=== PATIENT | female | born 1950 | race Caucasian/White ===

== ENCOUNTER → 2017-07-07 | Outpatient (CLI) | payer MEDICARE ==
--- NOTE | 2017-07-09 11:37 | MM ---
Reason for exam: screening (asymptomatic). Last mammogram was performed 1 year and 7 months ago. Physical Findings: A clinical breast exam by your physician is recommended on an annual basis and results should be correlated with mammographic findings. MG 3D Screening Mammo W/Cad Bilateral CC and MLO view(s) were taken. Prior study comparison: December 20, 2015, bilateral MG screening mammo w CAD. December 11, 2009, bilateral digital screening mammogram. The breast tissue is heterogeneously dense. This may lower the sensitivity of mammography. Finding: There are typically benign round calcifications in both breasts. Asymmetric breast tissue in the right medial aspect. There is no discrete abnormality. ASSESSMENT: Benign, BI-RAD 2 RECOMMENDATION: Routine screening mammogram of both breasts in 1 year.
== END | disposition home or self-care (01) ==
LOC: RADMAMWWP 09:21
PROVIDERS: ATTEND Family Medicine
DX: Z12.31 Encounter for screening mammogram for malignant neoplasm of breast (principal)
CPT/HCPCS: 77063; G0202

== ENCOUNTER → 2017-11-18 | Outpatient (CLI) | payer MEDICARE ==
--- NOTE | 2017-11-18 14:37 | BD ---
EXAMINATION TYPE: MG DEXA axial skeleton. DATE OF EXAM: 11/18/2017 COMPARISON: 09.04.2015 CLINICAL HISTORY: 67 YR OLD FEMALE....ICD-10 CODE: M19.90 OSTEOARTHRITIS Height: 61 Weight: 145 FRAX RISK QUESTIONS: Alcohol (3 or more units per day): NO Family History (Parent hip fracture): YES Glucocorticoids (More than 3mos): NO (Ex: prednisone, prednisolone, methylprednisolone, dexamethasone, and hydrocortisone). History of Fracture in Adulthood: YES Secondary Osteoporosis: NO 1. Type 1 Diabetes: NO 2. Hyperthyroidism: NO 3. Menopause before 45: YES 4. Malnutrition: NO 5. Chronic liver disease: NO Rheumatoid Arthritis: NO Current Tobacco Use: NO RISK FACTORS HISTORY OF: PELVIC BONE, >AGE 50 Family History of Osteoporosis: YES, HER MOTHER, WITH BROKEN HIP Active: YES Diet low in dairy products/other sources of calcium: YES, LACTOSE INTOLERANT Postmenopausal woman: TOTAL HYST AT AGE 28 Lost more than 2 inches in height since high school: NO Hyperparathyroidism: NO Adrenal Insufficiency: NO MEDICATIONS: Additional Medications: BP MEDS, ORAL DIABETIC MEDS, Additional History: DIABETIC, EXAM MEASUREMENTS: Bone mineral densitometry was performed using the [employer] System. Bone mineral density as measured about the Lumbar spine is: ----- L1-L4(G/cm2): 1.252 T Score Values are as follows: ----- L1: 0.3 ----- L2: 0.8 ----- L3: 0.7 ----- L4: 0.5 ----- L1-L4: 0.6 Bone mineral density has: Decreased -0.7% since study of: 09.04.2015 Bone mineral density about the R hip (g/cm2): 0.880 Bone mineral density about the L hip (g/cm2): 0.864 T Score values are as follows: -----R Neck: -1.2 -----L Neck: -1.6 -----R Total: -1.0 -----L Total: -1.1 Bone mineral density has: Decreased -1.2% since study of: 09.04.2015 FRAX%'S: THERE IS A 25.7% CHANCE OF A MAJOR OSTEOPOROTIC FX AND A -1.2% FOR HIP FX.....PROBABILIT Y OF FX IN 10 YRS TIME IMPRESSION: Osteopenia (T Score between -2.5 and -1 as noted by T score values There is slightly increased risk of fracture and the patient may be considered for treatment. Re-Screen 2-5 years. NOTE: T-SCORE=SD OF THE YOUNG ADULT MEAN.
== END | disposition home or self-care (01) ==
LOC: RADBDWWP 13:09
PROVIDERS: ATTEND Family Medicine
DX: M85.80 Other specified disorders of bone density and structure, unspecified site (principal); M19.90 Unspecified osteoarthritis, unspecified site
CPT/HCPCS: 77080

== ENCOUNTER → 2019-04-18 | Outpatient (CLI) | payer MEDICARE ==
--- NOTE | 2019-04-18 11:52 | XR ---
EXAMINATION TYPE: XR femur RT DATE OF EXAM: 04/18/2019 CLINICAL HISTORY: Pain TECHNIQUE: Two views of the right femur are obtained. COMPARISON: None FINDINGS: There is no acute fracture or dislocation seen in the right femur. Narrowing the medial co mpartment the knee joint and mild concentric narrowing the joint noted. Hypertrophic change of the ac etabulum associated with femoral acetabular impingement. Calcifications in the pelvis may be vascular . IMPRESSION: 1. Arthropathy of the hip and knee joints. Correlate for femoral acetabular impingement.
--- NOTE | 2019-04-18 12:15 | XR ---
EXAMINATION TYPE: XR Hip Complete RT DATE OF EXAM: 04/18/2019 COMPARISON: NONE HISTORY: Pain TECHNIQUE: 2 views submitted FINDINGS: There is no evidence of erosive change or acute fracture. Concentric narrowing the hip joint with hyp ertrophic change involving the acetabulum. Calcifications in the pelvis are likely vascular. IMPRESSION: 1. No evidence of acute fracture or dislocation. 2. Arthropathy correlate for femoral acetabular impingement.
== END | disposition home or self-care (01) ==
LOC: RADXRMAIN 10:04
PROVIDERS: ATTEND Family Medicine
DX: S76.901A Unspecified injury of unspecified muscles, fascia and tendons at thigh level, right thigh, initial encounter (principal); M16.11 Unilateral primary osteoarthritis, right hip; M17.0 Bilateral primary osteoarthritis of knee
CPT/HCPCS: 73502

== ENCOUNTER → 2019-08-23 | Outpatient (CLI) | payer MEDICARE ==
--- NOTE | 2019-08-24 11:11 | MM ---
Reason for exam: screening (asymptomatic). Last mammogram was performed 2 years and 2 months ago. Physical Findings: A clinical breast exam by your physician is recommended on an annual basis and results should be correlated with mammographic findings. MG 3D Screening Mammo W/Cad Bilateral CC and MLO view(s) were taken. Prior study comparison: July 07, 2017, bilateral MG 3d screening mammo w/cad. December 20, 2015, bilateral MG screening mammo w CAD. The breast tissue is heterogeneously dense. This may lower the sensitivity of mammography. There is no discrete abnormality. No significant changes when compared with prior studies. ASSESSMENT: Negative, BI-RAD 1 RECOMMENDATION: Routine screening mammogram of both breasts in 1 year.
== END | disposition home or self-care (01) ==
LOC: RADMAMWWP 09:27
PROVIDERS: ATTEND Family Medicine
DX: Z12.31 Encounter for screening mammogram for malignant neoplasm of breast (principal)
CPT/HCPCS: 77063; 77067

== ENCOUNTER → 2021-07-24 | Outpatient (CLI) | payer MEDICARE ==
--- NOTE | 2021-07-25 14:02 | MM ---
Reason for exam: screening (asymptomatic). Last mammogram was performed 1 year and 11 months ago. History: Took hormonal contraceptives for 6 years. Physical Findings: A clinical breast exam by your physician is recommended on an annual basis and results should be correlated with mammographic findings. MG 3D Screening Mammo W/Cad Bilateral CC and MLO view(s) were taken. Prior study comparison: August 23, 2019, bilateral MG 3d screening mammo w/cad. July 07, 2017, bilateral MG 3d screening mammo w/cad. The breast tissue is heterogeneously dense. This may lower the sensitivity of mammography. There are benign appearing round calcifications bilaterally. There is chronic nodularity in the right breast. There is no discrete abnormality. ASSESSMENT: Benign, BI-RAD 2 RECOMMENDATION: Routine screening mammogram in 1 year.
== END | disposition home or self-care (01) ==
LOC: RADMAMWWP 16:30
PROVIDERS: ATTEND Family Medicine
DX: Z12.31 Encounter for screening mammogram for malignant neoplasm of breast (principal)
CPT/HCPCS: 77063; 77067

== ENCOUNTER → 2022-01-22 | Outpatient (CLI) | payer MEDICARE ==
--- NOTE | 2022-01-22 15:47 | XR ---
EXAMINATION TYPE: XR forearm RT DATE OF EXAM: 01/22/2022 COMPARISON: NONE HISTORY: Pain Two views of the forearm demonstrate that the osseous structures appear to be intact and the joint sp aces appear to be preserved. There is no acute fracture or dislocation. Tiny olecranon spur. IMPRESSION: 1. No acute fracture or dislocation
--- NOTE | 2022-01-22 15:49 | XR ---
EXAMINATION TYPE: XR humerus RT DATE OF EXAM: 01/22/2022 COMPARISON: NONE HISTORY: Pain TECHNIQUE: 2 views submitted. FINDINGS: The osseous structures are intact and the joint spaces are preserved. IMPRESSION: 1. No acute fracture or dislocation.
--- NOTE | 2022-01-22 15:51 | XR ---
EXAMINATION TYPE: XR hand limited RT DATE OF EXAM: 01/22/2022 COMPARISON: NONE HISTORY: Pain TECHNIQUE: Two views are submitted. FINDINGS: The osseous structures are intact. The joint spaces are preserved and there is no acute fracture or dislocation. Diffuse osteopenia with narrowing of the DIP joints. IMPRESSION: 1. No definite acute fracture or dislocation if symptoms persist, follow-up study in 7 to 10 days wo uld be suggested. Diffuse osteopenia and arthropathy.
--- NOTE | 2022-01-22 15:54 | XR ---
EXAMINATION TYPE: XR shoulder limited RT DATE OF EXAM: 01/22/2022 COMPARISON: NONE HISTORY: Pain TECHNIQUE: Two views are submitted. FINDINGS: The osseous structures are intact. There is no acute fracture or dislocation. There is a widening of the AC joint which may be chronic. IMPRESSION: 1. There may be slight widening of the AC joint potentially chronic. If concern for AC joint injury c orrelate with MRI.
== END | disposition home or self-care (01) ==
LOC: RADXRMAIN 14:46
PROVIDERS: ATTEND Family Medicine
DX: M85.841 Other specified disorders of bone density and structure, right hand (principal); M12.841 Other specific arthropathies, not elsewhere classified, right hand

== ENCOUNTER → 2022-06-04 | Outpatient (CLI) | payer MEDICARE ==
[2022-06-04 11:07] LABS: ALT 26 U/L (8-44); AST 35 U/L (13-35); African American GFR (CKD) 100.3 (60.0-200.0); Albumin 4.2 g/dL (3.8-4.9); Albumin/Globulin Ratio 1.27 (1.60-3.17); Alkaline Phosphatase 70 U/L (41-126); BUN/Creat Ratio 22.57 Ratio (12.00-20.00); Blood Urea Nitrogen 15.8 mg/dL (9.0-27.0); Calcium 9.5 mg/dL (8.7-10.3); Carbon Dioxide 23.9 mmol/L (20.0-27.5); Chloride 107 mmol/L (96-109); Chol/HDL Ratio 2.87 Ratio; Globulin 3.3 g/dL (1.6-3.3); Glucose 103 mg/dL (70-110); LDL Cholesterol,Calculated 48.3 mg/dL (0.0-131.0); Non-African American GFR(CKD) 86.6 (60.0-200.0); Potassium 3.5 mmol/L (3.5-5.5); Sodium 145 mmol/L (135-145); Total Protein 7.5 g/dL (6.2-8.2); VLDL Calculation 17.46 mg/dL (5.00-40.00)
[2022-06-04 11:11] LABS: Basophils # (A) 0.02 X 10*3/uL (0.00-0.10); Basophils % (A) 0.6 %; Eosinophils # (A) 0.06 X 10*3/uL (0.04-0.35); Eosinophils % (A) 1.9 %; HCT 37.1 % (37.2-46.3); HGB 10.9 g/dL (12.0-15.0); Immature Grans, Automated 0.3 %; Lymphocytes # (A) 1.16 X 10*3/uL (0.90-5.00); Lymphocytes % (A) 36.6 %; MCH 25.1 pg (27.0-32.0); MCHC 29.4 g/dL (32.0-37.0); MCV 85.3 fL (80.0-97.0); Mean Platelet Volume 10.5 fL (9.5-12.2); Monocytes # (A) 0.18 X 10*3/uL (0.20-1.00); Monocytes % (A) 5.7 %; NRBC Per 100 WBC 0 /100 WBCS (0.0-0.0); Neutrophils # (A) 1.74 X 10*3/uL (1.80-7.70); Neutrophils % (A) 54.9 %; Platelet Count 93 X 10*3/uL (140-440); RBC 4.35 X 10*6/uL (4.10-5.20); RBC Morphology NORMAL; RDW 17.6 % (11.5-14.5); WBC 3.17 X 10*3/uL (4.50-10.00)
== END | disposition home or self-care (01) ==
LOC: LABWHC1 07:55
PROVIDERS: ATTEND Family Medicine
DX: E11.29 Type 2 diabetes mellitus with other diabetic kidney complication (principal); E78.00 Pure hypercholesterolemia, unspecified
CPT/HCPCS: 36415; 80053; 80061; 85025

== ENCOUNTER 2022-07-18 10:50 | Emergency (ER) | payer MEDICARE ==
--- NOTE | 2022-07-18 11:27 | XR ---
EXAMINATION TYPE: XR chest 2V DATE OF EXAM: 07/18/2022 COMPARISON: 07/11/2015 HISTORY: 71-year-old female with chest pain TECHNIQUE: PA and lateral views FINDINGS: Heart normal size atherosclerotic arch calcifications. Mild interstitial prominence is unchanged. No consolidation or pleural effusion. Slightly low lung volumes. IMPRESSION: Chronic changes. No acute process seen.
[2022-07-18 11:58] LABS: Anisocytosis Slight; Basophils % (A) 1 %; Eosinophils # (A) 0.1 k/uL (0-0.7); Eosinophils % (A) 2 %; HCT 39.3 % (34.0-46.0); HGB 11.9 gm/dL (11.4-16.0); Hypochromasia Marked; Lymphocytes % (A) 29 %; MCH 26.3 pg (25.0-35.0); MCHC 30.3 g/dL (31.0-37.0); MCV 86.7 fL (80.0-100.0); Mean Platelet Volume 8.8; Monocytes # (A) 0.2 k/uL (0-1.0); Monocytes % (A) 5 %; Neutrophils # (A) 2.1 k/uL (1.3-7.7); Neutrophils % (A) 62 %; Platelet Count 102 k/uL (150-450); RBC 4.53 m/uL (3.80-5.40); RDW 17.6 % (11.5-15.5); WBC 3.3 k/uL (3.8-10.6)
[2022-07-18 12:00] LABS: Partial Thromboplastin Time 25.8 sec (22.0-30.0)
[2022-07-18 12:09] LABS: ALT 35 U/L (4-34); AST 52 U/L (14-36); African American GFR (CKD) >90 (>60 ml/min/1.73 sqM); Albumin 4.2 g/dL (3.5-5.0); Alkaline Phosphatase 75 U/L (38-126); Anion Gap 13 mmol/L; Blood Urea Nitrogen 17 mg/dL (7-17); Calcium 8.9 mg/dL (8.4-10.2); Carbon Dioxide 23 mmol/L (22-30); Chloride 105 mmol/L (98-107); Glucose 146 mg/dL (74-99); Magnesium 1.8 mg/dL (1.6-2.3); Non-African American GFR(CKD) >90 (>60 ml/min/1.73 sqM); Potassium 4.2 mmol/L (3.5-5.1); Sodium 141 mmol/L (137-145); Total Bilirubin 0.8 mg/dL (0.2-1.3); Total Protein 7.3 g/dL (6.3-8.2)
[2022-07-18] MEDS ORDERED: PANTOPRAZOLE 40 MG/10 ML VIAL IVP STA (13:05)
--- NOTE | 2022-07-18 13:05 | ED ---
General Adult HPI - General Chief complaint: Abdominal Pain Stated complaint: Epigastric "chest pain" Time Seen by Provider: 07/18/22 12:29 Source: patient, RN notes reviewed Mode of arrival: ambulatory Limitations: no limitations - History of Present Illness Initial comments: Patient is a 71-year-old female presenting to the emergency room with complaints of "chest pain" that is epigastric in nature that has not responded to nitroglycerin. She is unable to identify any aggravating or alleviating factors. She does note that she did vomit 2 days ago. She is also complaining of some neck and back pain as well. She denies any typical chest pain and states that the pain she is experiencing now is not similar to her previous chest pain when she had a cardiac catheterization completed. She denies any shortness of breath, abdominal pain, orthopnea, PND, diaphoresis, lower extremity edema fevers or chills. She reports that she was having some hematuria which was microscopic in nature and her primary care provider referred her to urology h owever she denies any dysuria or gross hematuria or flank pain. She has a past medical history significant for diabetes, hypertension, hyperlipidemia, diabetic neuropathy, and arthritis. - Related Data Home Medications Medication Instructions Recorded Confirmed Aspirin 81 mg PO DAILY 04/11/14 07/12/15 Cholecalciferol [Vitamin D3 (25 4,000 unit PO DAILY 04/11/14 07/12/15 Mcg = 1000 Iu)] Metoprolol Tartrate [Lopressor] 50 tab PO DAILY 04/11/14 07/12/15 Nitroglycerin Sl Tabs [Nitrostat] 0.4 mg SL Q5M PRN 04/11/14 07/12/15 Atorvastatin [Lipitor] 20 mg PO HS 01/25/15 07/12/15 Acarbose 100 mg PO BID 07/12/15 07/12/15 Cyclobenzaprine [Flexeril] 5 mg PO BID 07/12/15 07/12/15 Dapagliflozin/Metformin HCl 1 tab PO BID-W/MEALS 07/12/15 07/12/15 [Xigduo Xr 5 mg-1,000 mg Tablet] Gabapentin 400 mg PO TID 07/12/15 07/12/15 Lisinopril [Prinivil] 5 mg PO HS 07/12/15 07/12/15 Terbinafine [LamISIL] 250 mg PO DAILY 07/12/15 07/12/15 Previous Rx's Medication Instructions Recorded Diclofenac Sodium Gel [Voltaren 2 gm TOPICAL QID tube 07/14/15 Gel] Naproxen [Naprosyn] 250 mg PO BID #10 tab 07/14/15 Pantoprazole Sodium [Protonix] 40 mg PO DAILY 14 Days #14 tab 07/18/22 Allergies Allergy/AdvReac Type Severity Reaction Status Date / Time No Known Allergies Allergy Verified 07/18/22 10:55 Review of Systems ROS Statement: Those systems with pertinent positive or pertinent negative responses have been documented in the HPI. ROS Other: All systems not noted in ROS Statement are negative. Past Medical History Past Medical History: Asthma, Chest Pain / Angina, Diabetes Mellitus, Hypertension Additional Past Medical History / Comment(s): ASTHMA, HX OF HEPATITIS A @ 12 YRS OLD, DIARRHEA History of Any Multi-Drug Resistant Organisms: None Reported Past Surgical History: Heart Catheterization, Hysterectomy Additional Past Surgical History / Comment(s): RT CARPAL TUNNEL, CYSTS AND TRIGGER FINGER RT & LT HANDS Past Anesthesia/Blood Transfusion Reactions: No Reported Reaction, Motion Sickness Past Psychological History: No Psychological Hx Reported Smoking Status: Never smoker Past Alcohol Use History: None Reported Past Drug Use History: None Reported - Past Family History Mother History Unknown: Yes Family Medical History: Myocardial Infarction ([place]) Father History Unknown: Yes Additional Family Medical History / Comment(s): emphysema General Exam Limitations: no limitations General appearance: alert, in no apparent distress Head exam: Present: atraumatic, normocephalic, normal inspection Eye exam: Present: normal appearance, PERRL, EOMI. Absent: scleral icterus, conjunctival injection, periorbital swelling ENT exam: Present: normal exam, mucous membranes moist Neck exam: Present: normal inspection. Absent: tenderness, meningismus, lymphadenopathy Respiratory exam: Present: normal lung sounds bilaterally. Absent: respiratory distress, wheezes, rales, rhonchi, stridor Cardiovascular Exam: Present: regular rate, normal rhythm, normal heart sounds. Absent: systolic murmur, diastolic murmur, rubs, gallop, clicks GI/Abdominal exam: Present: soft, normal bowel sounds, other (rounded). Absent: distended, tenderness, guarding, rebound, rigid Rectal exam: Present: deferred Extremities exam: Present: normal inspection, full ROM, normal capillary refill, other (2+ bilateral pedal pulses). Absent: tenderness, pedal edema, joint swelling Back exam: Present: full ROM. Absent: tenderness, muscle spasm, paraspinal tenderness, vertebral tenderness Neurological exam: Present: alert, oriented X3, CN II-XII intact Psychiatric exam: Present: normal affect, normal mood Skin exam: Present: warm, dry, intact, normal color. Absent: rash Course Vital Signs 07/18/22 07/18/22 10:51 13:05 Temperature 98.1 F 98.2 F Pulse Rate 97 90 Respiratory 18 16 Rate Blood Pressure 125/62 147/75 O2 Sat by Pulse 95 98 Oximetry Medical Decision Making - Medical Decision Making 71-year-old female presenting to the emergency room with complaints of epigastric pain which she describes as chest pain that is not typical to her previous chest pain. She reports that symptoms began approximately 4 days ago and around the same time she did have an episode of vomiting. Due to past medical history from triage workup for ACS was ordered including troponin, magnesium, CMP, CBC, coags, chest x-ray and EKG. Given muscle aches and recent vomiting will check for Covid as well. Will give IV Protonix. No evidence of typical chest pain or other associated symptoms. EKG sinus rhythm with old infarcts noted no change compared to 2014. Chest x- ray no acute cardiopulmonary process. CMP revealed slightly elevated liver enzymes and elevated glucose consistent with home glucose readings, otherwise no significant abnormalities; troponin negative, magnesium normal. CBC reveals leukopenia near baseline. Covid negative. Will check KUB given no significant improvement from Protonix however pain mild. No other associated symptoms nausea or vomiting. KUB negative for acute findings; possible calcified gallstone. Findings reviewed with patient. Will discharge home on a PPI and recommend follow-up with her primary care provider. Return parameters to the emergency room reviewed at length. Case discussed with Dr. Winchester. - Lab Data Result diagrams: 07/18/22 11:08 07/18/22 11:08 Lab Results 07/18/22 07/18/22 07/18/22 Range/Units 11:08 11:08 11:08 WBC 3.3 L (3.8-10.6) k/uL RBC 4.53 (3.80-5.40) m/uL Hgb 11.9 (11.4-16.0) gm/dL Hct 39.3 (34.0-46.0) % MCV 86.7 (80.0-100.0) fL MCH 26.3 (25.0-35.0) pg MCHC 30.3 L (31.0-37.0) g/dL RDW 17.6 H (11.5-15.5) % Plt Count 102 L (150-450) k/uL MPV 8.8 Neutrophils % 62 % Lymphocytes % 29 % Monocytes % 5 % Eosinophils % 2 % Basophils % 1 % Neutrophils # 2.1 (1.3-7.7) k/uL Lymphocytes # 1.0 (1.0-4.8) k/uL Monocytes # 0.2 (0-1.0) k/uL Eosinophils # 0.1 (0-0.7) k/uL Basophils # 0.0 (0-0.2) k/uL Hypochromasia Marked Anisocytosis Slight PT 11.0 (9.0-12.0) sec INR 1.0 (<1.2) APTT 25.8 (22.0-30.0) sec Sodium 141 (137-145) mmol/L Potassium 4.2 (3.5-5.1) mmol/L Chloride 105 (98-107) mmol/L Carbon Dioxide 23 (22-30) mmol/L Anion Gap 13 mmol/L BUN 17 (7-17) mg/dL Creatinine 0.59 (0.52-1.04) mg/dL Est GFR (CKD-EPI)AfAm >90 (>60 ml/min/1.73 sqM) Est GFR (CKD-EPI)NonAf >90 (>60 ml/min/1.73 sqM) Glucose 146 H (74-99) mg/dL Calcium 8.9 (8.4-10.2) mg/dL Magnesium 1.8 (1.6-2.3) mg/dL Total Bilirubin 0.8 (0.2-1.3) mg/dL AST 52 H (14-36) U/L ALT 35 H (4-34) U/L Alkaline Phosphatase 75 (38-126) U/L Troponin I (0.000-0.034) ng/mL Total Protein 7.3 (6.3-8.2) g/dL Albumin 4.2 (3.5-5.0) g/dL Coronavirus (PCR) (Not Detectd) 07/18/22 07/18/22 Range/Units 11:08 13:07 WBC (3.8-10.6) k/uL RBC (3.80-5.40) m/uL Hgb (11.4-16.0) gm/dL Hct (34.0-46.0) % MCV (80.0-100.0) fL MCH (25.0-35.0) pg MCHC (31.0-37.0) g/dL RDW (11.5-15.5) % Plt Count (150-450) k/uL MPV Neutrophils % % Lymphocytes % % Monocytes % % Eosinophils % % Basophils % % Neutrophils # (1.3-7.7) k/uL Lymphocytes # (1.0-4.8) k/uL Monocytes # (0-1.0) k/uL Eosinophils # (0-0.7) k/uL Basophils # (0-0.2) k/uL Hypochromasia Anisocytosis PT (9.0-12.0) sec INR (<1.2) APTT (22.0-30.0) sec Sodium (137-145) mmol/L Potassium (3.5-5.1) mmol/L Chloride (98-107) mmol/L Carbon Dioxide (22-30) mmol/L Anion Gap mmol/L BUN (7-17) mg/dL Creatinine (0.52-1.04) mg/dL Est GFR (CKD-EPI)AfAm (>60 ml/min/1.73 sqM) Est GFR (CKD-EPI)NonAf (>60 ml/min/1.73 sqM) Glucose (74-99) mg/dL Calcium (8.4-10.2) mg/dL Magnesium (1.6-2.3) mg/dL Total Bilirubin (0.2-1.3) mg/dL AST (14-36) U/L ALT (4-34) U/L Alkaline Phosphatase (38-126) U/L Troponin I <0.012 (0.000-0.034) ng/mL Total Protein (6.3-8.2) g/dL Albumin (3.5-5.0) g/dL Coronavirus (PCR) Not Detected (Not Detectd) - EKG Data EKG Comments: Sinus rhythm, 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 No acute process seen. KUB impression nonacute abdomen. Possible calcified gallstone. Disposition Clinical Impression: Gastroesophageal reflux disease Disposition: HOME SELF-CARE Condition: Stable Instructions (If sedation given, give patient instructions): GERD (Gastroesophageal Reflux Disease) (ED) Additional Instructions: Please take Protonix daily for the next 2 weeks. Please follow-up with your primary care provider. Please continue your regular home medications as prescribed. Please return to the emergency room if any worsening of epigastric pain, typical chest pain, shortness of breath, nausea, vomiting or other concerns. . Prescriptions: Pantoprazole Sodium [Protonix] 40 mg PO DAILY 14 Days #14 tab Is patient prescribed a controlled substance at d/c from ED?: No Referrals: None,Stated [Primary Care Provider] - 1-2 days Time of Disposition: 14:41
[2022-07-18 13:10] VITALS: TEMP 98.2
--- NOTE | 2022-07-18 14:32 | XR ---
EXAMINATION TYPE: XR KUB DATE OF EXAM: 07/18/2022 COMPARISON: NONE HISTORY: Pain TECHNIQUE: Single view FINDINGS: There is no sign of intestinal obstruction or pneumoperitoneum. Fecal pattern is normal. No sign of a mass. No pathologic calcifications over the kidneys. There is rounded calcification over t he right upper quadrant. IMPRESSION: Nonacute abdomen. Possible calcified gallstone.
[2022-07-18 14:58] VITALS: BP 119/77; PULSE 85; RESP 18
== END 2022-07-18 14:58 | disposition home or self-care (01) ==
LOC: EC 10:50
DX: K21.9 Gastro-esophageal reflux disease without esophagitis (principal); J45.909 Unspecified asthma, uncomplicated; E11.9 Type 2 diabetes mellitus without complications; I10 Essential (primary) hypertension; Z20.822 Contact with and (suspected) exposure to COVID-19; Z79.84 Long term (current) use of oral hypoglycemic drugs; Z79.899 Other long term (current) drug therapy
CPT/HCPCS: 36415; 93005; 80053; 83735; 84484; 85025; 85610; 85730; 87635; 71046; 74018; 99284; 96374; C9113

== ENCOUNTER → 2022-08-25 | Outpatient (CLI) | payer MEDICARE ==
[2022-08-25 14:29] LABS: Basophils # (A) 0.02 X 10*3/uL (0.00-0.10); Basophils % (A) 0.7 %; Eosinophils # (A) 0.09 X 10*3/uL (0.04-0.35); Eosinophils % (A) 3.1 %; HCT 32.6 % (37.2-46.3); HGB 9.9 g/dL (12.0-15.0); Immature Grans, Automated 0.3 %; Lymphocytes # (A) 1.01 X 10*3/uL (0.90-5.00); Lymphocytes % (A) 34.7 %; MCH 25.5 pg (27.0-32.0); MCHC 30.4 g/dL (32.0-37.0); Mean Platelet Volume 11.5 fL (9.5-12.2); Monocytes % (A) 6.9 %; NRBC Per 100 WBC 0 /100 WBCS (0.0-0.0); Neutrophils # (A) 1.58 X 10*3/uL (1.80-7.70); Neutrophils % (A) 54.3 %; Platelet Count 112 X 10*3/uL (140-440); RBC 3.88 X 10*6/uL (4.10-5.20); RDW 17.3 % (11.5-14.5); WBC 2.91 X 10*3/uL (4.50-10.00)
[2022-08-25 18:40] LABS: % Iron Saturation 6.49 (12.00-45.00); ALT 30 U/L (8-44); AST 45 U/L (13-35); African American GFR (CKD) 103.8 (60.0-200.0); Albumin 3.7 g/dL (3.8-4.9); Albumin/Globulin Ratio 1.17 (1.60-3.17); Alkaline Phosphatase 77 U/L (41-126); BUN/Creat Ratio 18.83 Ratio (12.00-20.00); Blood Urea Nitrogen 11.9 mg/dL (9.0-27.0); Calcium 8.7 mg/dL (8.7-10.3); Carbon Dioxide 20.9 mmol/L (20.0-27.5); Chloride 105 mmol/L (96-109); Chol/HDL Ratio 4.17 Ratio; Globulin 3.2 g/dL (1.6-3.3); Glucose 122 mg/dL (70-110); Iron 26 ug/dL (50-170); Non-African American GFR(CKD) 89.5 (60.0-200.0); Potassium 3.7 mmol/L (3.5-5.5); Sodium 140 mmol/L (135-145); Total Iron Binding Capacity 396 ug/dL (228-460); Total Protein 6.9 g/dL (6.2-8.2); VLDL Calculation 17.98 mg/dL (5.00-40.00)
== END | disposition home or self-care (01) ==
LOC: LABWHC1 08:51
PROVIDERS: ATTEND Family Medicine
DX: Z00.01 Encounter for general adult medical examination with abnormal findings (principal); D64.9 Anemia, unspecified; M85.80 Other specified disorders of bone density and structure, unspecified site
CPT/HCPCS: 36415; 80053; 80061; 82306; 82728; 83540; 83550; 84439; 84443; 85025

== ENCOUNTER → 2022-10-01 | Outpatient (CLI) | payer MEDICARE ==
--- NOTE | 2022-10-02 18:19 | MM ---
Reason for Exam: Screening (asymptomatic). Last mammogram was performed 1 year(s) and 3 month(s) ago. Patient History: Menarche at age 17. First Full-Term at age 18. Left ovary removed at age 29. Right ovary removed at age 29. Hysterectomy at age 29. Postmenopausal. Patient used Hormonal Contraceptives for 6 years. Risk Values: Anne 5 year model risk: 1.2%. NCI Lifetime model risk: 3.0%. Prior Study Comparison: 12/20/2015 Bilateral Screening Mammogram, [facility]. 07/07/2017 Bilateral Screening Mammogram, [facility]. 08/23/2019 Bilateral Screening Mammogram, [facility]. 07/24/2021 Bilateral Screening Mammogram, [facility]. Tissue Density: There are scattered fibroglandular densities. Findings: Analyzed By CAD. Chronic nodularity on both sides. There is no suspicious group of microcalcifications or new suspicious mass in either breast. Overall Assessment: Benign, BI-RAD 2 Management: Screening Mammogram of both breasts in 1 year. 1. Patient should continue monthly self breast exams. 2. A clinical breast exam by your physician is recommended on an annual basis. 3. This exam should not preclude additional follow-up of suspicious palpable abnormalities. Electronically signed and approved by: Shima Rain M.D. Radiologist
== END | disposition home or self-care (01) ==
LOC: RADMAMWWP 13:28
PROVIDERS: ATTEND Family Medicine
DX: Z12.31 Encounter for screening mammogram for malignant neoplasm of breast (principal); Z78.0 Asymptomatic menopausal state; Z90.721 Acquired absence of ovaries, unilateral
CPT/HCPCS: 77063; 77067

== ENCOUNTER → 2022-10-01 | Outpatient (CLI) | payer MEDICARE ==
--- NOTE | 2022-10-01 17:23 | BD ---
EXAMINATION TYPE: Axial Bone Density DATE OF EXAM: 10/01/2022 CLINICAL HISTORY: 71 years year old Female. ICD-10 CODE: M85.80 oth bne disorder unsp Height: 60.5 Weight: 142.3 FRAX RISK QUESTIONS: Alcohol (3 or more units per day): NO Family History (Parent hip fracture): MOTHER Glucocorticoids (More than 3mos): NO History of Fracture in Adulthood: ANKLE Secondary Osteoporosis: 1. Type 1 Diabetes: NO 2. Hyperthyroidism: NO 3. Menopause before 45: YES AGE 29 4. Malnutrition: NO 5. Chronic liver disease: NO Rheumatoid Arthritis: NO Current Tobacco Use: NO RISK FACTORS HISTORY OF: Hip Fracture (Right/Left): NO Spine Fracture: NO History of Wrist Fracture: NO Surgery to Spine/Hip(right/left)/Wrist (right/left): NO Family History of Osteoporosis: NO Active: YES Diet low in dairy products/other sources of calcium: YES Postmenopausal woman: YES Take estrogen and/or progesterone medications: NO Lost more than 2 inches in height since high school: NO Frequent falls: YES Poor Health: NO Hyperparathyroidism: NO Adrenal Insufficiency: NO MEDICATIONS: Prednisone or other steroids: NO Thyroid Medications: NO Osteoporosis Medications: NO Additional Medications: JARDIANCE, GABAPENTIN, CHOLESTEROL MEDS, MULTI VIT., EXAM MEASUREMENTS: Bone mineral densitometry was performed using the [employer] System. Bone mineral density as measured about the Lumbar spine is: ----- L1-L4(G/cm2): 1.249 T Score Values are as follows: ----- L1: 0.4 ----- L2: 0.2 ----- L3: 0.8 ----- L4: 0.8 ----- L1-L4: 0.6 Bone mineral density has: DECREASED -0.5 % since study of: 11/18/2017 Bone mineral density about the R hip (g/cm2): 0.798 Bone mineral density about the L hip (g/cm2): 0.741 T Score values are as follows: -----R Neck: -1.7 -----L Neck: -2.1 -----R Total: -1.3 -----L Total: -1.3 Bone mineral density has: DECREASED -3.3 % since study of: 11/18/2017 FRAX%s: The graph provided illustrates a 32.5% chance for a major osteoporotic fx and a 14.8% chance for the hips probability for fx in 10 years time. IMPRESSION: Osteopenia (T Score between -2.5 and -1). There is slightly increased risk of fracture and the patient may be considered for treatment. Re-Screen 2-5 years. NOTE: T-SCORE=SD OF THE YOUNG ADULT MEAN.
== END | disposition home or self-care (01) ==
LOC: RADBDWWP 13:27
PROVIDERS: ATTEND Family Medicine
DX: M85.89 Other specified disorders of bone density and structure, multiple sites (principal); Z78.0 Asymptomatic menopausal state; Z79.52 Long term (current) use of systemic steroids
CPT/HCPCS: 77080

== ENCOUNTER → 2022-10-08 | Outpatient (CLI) | payer MEDICARE ==
--- NOTE | 2022-10-08 12:32 | US ---
EXAMINATION TYPE: US kidneys/renal and bladder DATE OF EXAM: 10/08/2022 COMPARISON: NONE CLINICAL HISTORY: 71-year-old female R31.1 BENIGN ESSENTIAL MICROSCOPIC HEMATURIA. TECHNIQUE: Multiple sonographic images of the bladder are obtained. FINDINGS: EXAM MEASUREMENTS: Right Kidney: 10.5 x 4.9 x 4.7 cm Left Kidney: 10.0 x 4.5 x 5.1 cm Right Kidney: wnl Left Kidney: wnl No sonographically appreciable mass or hydronephrosis on either side. No discrete shadowing calculus identified. Bladder: wnl Bilateral Jets seen: Yes IMPRESSION: Unremarkable sonographic examination of the kidneys and bladder. Further evaluation as clinically ind icated.
== END | disposition home or self-care (01) ==
LOC: RADUSWWP 07:13
PROVIDERS: ATTEND Family Medicine
DX: R31.1 Benign essential microscopic hematuria (principal)
CPT/HCPCS: 76770

== ENCOUNTER 2022-11-08 06:02 | Emergency (ER) | payer MEDICARE ==
[2022-11-08 06:21] VITALS: TEMP 98.2
[2022-11-08] MEDS ORDERED: KETOROLAC 15 MG/ML 1 ML VIAL IVP STA (06:37)
[2022-11-08] MEDS ORDERED: ORPHENADRINE 30 MG/ML 2 ML VIAL IVP STA (06:37)
[2022-11-08 07:07] LABS: Anisocytosis Slight; Basophils % (A) 1 %; Eosinophils # (A) 0.1 k/uL (0-0.7); Eosinophils % (A) 2 %; HCT 36.5 % (34.0-46.0); HGB 11.1 gm/dL (11.4-16.0); Hypochromasia Marked; Lymphocytes # (A) 0.9 k/uL (1.0-4.8); Lymphocytes % (A) 24 %; MCH 25.3 pg (25.0-35.0); MCHC 30.3 g/dL (31.0-37.0); MCV 83.4 fL (80.0-100.0); Mean Platelet Volume 9.5; Monocytes # (A) 0.2 k/uL (0-1.0); Monocytes % (A) 6 %; Neutrophils # (A) 2.7 k/uL (1.3-7.7); Neutrophils % (A) 67 %; Platelet Count 147 k/uL (150-450); RBC 4.38 m/uL (3.80-5.40)
--- NOTE | 2022-11-08 07:10 | ED ---
General Adult HPI - General Chief complaint: Neck Pain/Injury Stated complaint: Neck/back pain Time Seen by Provider: 11/08/22 06:24 Source: patient, RN notes reviewed Mode of arrival: ambulatory Limitations: no limitations - History of Present Illness Initial comments: 72-year-old female presents emergency Department with chief complaint of left- sided neck, shoulder pain. Patient states has been present for last several days. Patient states that it's worse with any movement of her neck, left arm or when she takes a deep inspiration. She does not feel short of breath she has no anterior chest pain. Patient had prior cardiac workup which was negative. Patient states that she is known diabetic and has history of hyperlipidemia. Patient has no weakness of her extremities no headache. She's tried some Tylenol and some topical cream with no real relief of symptoms. - Related Data Home Medications Medication Instructions Recorded Confirmed Aspirin 81 mg PO DAILY 04/11/14 07/12/15 Cholecalciferol [Vitamin D3 (25 4,000 unit PO DAILY 04/11/14 07/12/15 Mcg = 1000 Iu)] Metoprolol Tartrate [Lopressor] 50 tab PO DAILY 04/11/14 07/12/15 Nitroglycerin Sl Tabs [Nitrostat] 0.4 mg SL Q5M PRN 04/11/14 07/12/15 Atorvastatin [Lipitor] 20 mg PO HS 01/25/15 07/12/15 Acarbose 100 mg PO BID 07/12/15 07/12/15 Cyclobenzaprine [Flexeril] 5 mg PO BID 07/12/15 07/12/15 Dapagliflozin/Metformin HCl 1 tab PO BID-W/MEALS 07/12/15 07/12/15 [Xigduo Xr 5 mg-1,000 mg Tablet] Gabapentin 400 mg PO TID 07/12/15 07/12/15 Lisinopril [Prinivil] 5 mg PO HS 07/12/15 07/12/15 Terbinafine [LamISIL] 250 mg PO DAILY 07/12/15 07/12/15 Previous Rx's Medication Instructions Recorded Diclofenac Sodium Gel [Voltaren 2 gm TOPICAL QID tube 07/14/15 Gel] Naproxen [Naprosyn] 250 mg PO BID #10 tab 07/14/15 Pantoprazole Sodium [Protonix] 40 mg PO DAILY 14 Days #14 tab 07/18/22 Ibuprofen [Motrin] 600 mg PO Q8HR PRN #20 tab 11/08/22 Orphenadrine [Norflex] 100 mg PO Q12H #14 tab 11/08/22 Allergies Allergy/AdvReac Type Severity Reaction Status Date / Time No Known Allergies Allergy Verified 07/18/22 10:55 Review of Systems ROS Statement: Those systems with pertinent positive or pertinent negative responses have been documented in the HPI. ROS Other: All systems not noted in ROS Statement are negative. Past Medical History Past Medical History: Asthma, Chest Pain / Angina, Diabetes Mellitus, Hypertension Additional Past Medical History / Comment(s): ASTHMA, HX OF HEPATITIS A @ 12 YRS OLD, DIARRHEA History of Any Multi-Drug Resistant Organisms: None Reported Past Surgical History: Heart Catheterization, Hysterectomy Additional Past Surgical History / Comment(s): RT CARPAL TUNNEL, CYSTS AND TRIGGER FINGER RT & LT HANDS Past Anesthesia/Blood Transfusion Reactions: No Reported Reaction, Motion Sickness Past Psychological History: No Psychological Hx Reported Smoking Status: Never smoker Past Alcohol Use History: None Reported Past Drug Use History: None Reported - Past Family History Mother History Unknown: Yes Family Medical History: Myocardial Infarction ([place]) Father History Unknown: Yes Additional Family Medical History / Comment(s): emphysema General Exam Limitations: no limitations General appearance: alert, in no apparent distress Head exam: Present: atraumatic, normocephalic, normal inspection Eye exam: Present: normal appearance, PERRL, EOMI. Absent: scleral icterus, conjunctival injection, periorbital swelling ENT exam: Present: normal exam, normal oropharynx, mucous membranes moist, TM's normal bilaterally Neck exam: Present: normal inspection, tenderness (Left trapezius, paracervical). Absent: meningismus, full ROM (Pain with range of motion), lymphadenopathy Respiratory exam: Present: normal lung sounds bilaterally. Absent: respiratory distress, wheezes, rales, rhonchi, stridor Cardiovascular Exam: Present: regular rate, normal rhythm, normal heart sounds. Absent: systolic murmur, diastolic murmur, rubs, gallop, clicks GI/Abdominal exam: Present: soft, normal bowel sounds. Absent: distended, tenderness, guarding, rebound, rigid Extremities exam: Present: other (Pain over the left shoulder, scapular region and trapezius pain with range of motion left shoulder neurovascular intact radial pulses equal bilaterally) Neurological exam: Present: alert, oriented X3, reflexes normal. Absent: motor sensory deficit Course Vital Signs 11/08/22 11/08/22 11/08/22 06:17 07:12 07:57 Temperature 98.2 F Pulse Rate 88 80 Pulse Rate [ 88 Apical] Respiratory 16 20 Rate Blood Pressure 134/80 141/75 O2 Sat by Pulse 98 97 Oximetry EKG Findings - EKG Comments: EKG Findings:: EKG performed at 647 sinus rhythm with rate of 84 OK 167 QRS 110 QT/QTC 381/423 Medical Decision Making - Medical Decision Making Was pt. sent in by a medical professional or institution (, PA, RESIDENTIAL TECH, urgent care, hospital, or half-way...) When possible be specific @ -No Did you speak to anyone other than the patient for history (EMS, parent, family, police, friend...)? What history was obtained from this source @ -No Did you review nursing and triage notes (agree or disagree)? Why? @ -I reviewed and agree with nursing and triage notes Were old charts reviewed (outside hosp., previous admission, EMS record, old EKG, old radiological studies, urgent care reports/EKG's, half-way records)? Report findings @ -No old charts were reviewed Differential Diagnosis (chest pain, altered mental status, abdominal pain women, abdominal pain men, vaginal bleeding, weakness, fever, dyspnea, syncope, headache, dizziness, GI bleed, back pain, seizure, CVA, palpatations, mental health)? @ -Cervical strain, cervical muscle spasm, trapezius injury, ACS, pneumothorax, this list is not all-inclusive EKG interpreted by me (3pts min.). @ -As above X-rays interpreted by me (1pt min.). @ -Chest x-ray shows no acute cardio pulmonary process CT interpreted by me (1pt min.). @ -None done U/S interpreted by me (1pt. min.). @ -None done What testing was considered but not performed or refused? (CT, X-rays, U/S, labs)? Why? @ -None What meds were considered but not given or refused? Why? @ -Additional pain meds were considered the patient had improvement in declined at this time will be discharged with meds Did you discuss the management of the patient with other professionals (professionals i.e. , PA, RESIDENTIAL TECH, lab, RT, psych nurse, social work assistant, floral assistant, teacher, optics technical officer, disability case manager)? Give summary @ -No Was smoking cessation discussed for >3mins.? @ -No Was critical care preformed (if so, how long)? @ -No Were there social determinants of health that impacted care today? How? (Homelessness, low income, unemployed, alcoholism, drug addiction, transportation, low edu. Level, literacy, decrease access to med. care, fdc, rehab)? @ -No Was there de-escalation of care discussed even if they declined (Discuss DNR or withdrawal of care, Hospice)? DNR status @ -No What co-morbidities impacted this encounter? (DM, HTN, Smoking, COPD, CAD, Cancer, CVA, ARF, Chemo, Hep., AIDS, mental health diagnosis, sleep apnea, mo rbid obesity)? @ -Diabetes, hyperlipidemia Was patient admitted / discharged? Hospital course, mention meds given and route, prescriptions, significant lab abnormalities, going to OR and other pertinent info. @ -Discharge- 72-year-old presented for left trapezius pain is reproducible pain worse with movement she does feel improved after Norflex, Toradol. Labs EKG chest x-ray did show no acute process. Patient will be discharged advised to stretch, apply heat and follow-up PCP Undiagnosed new problem with uncertain prognosis? @ -No Drug Therapy requiring intensive monitoring for toxicity (Heparin, Nitro, Insulin, Cardizem)? @ -No Were any procedures done? @ -No Diagnosis/symptom? @ -Trapezius muscle spasm Acute, or Chronic, or Acute on Chronic? @ -Acute Uncomplicated (without systemic symptoms) or Complicated (systemic symptoms)? @ -Uncomplicated Side effects of treatment? @ -No Exacerbation, Progression, or Severe Exacerbation? @ -No Poses a threat to life or bodily function? How? (Chest pain, [place], [place], pneumonia, PE, COPD, DKA, ARF, appy, cholecystitis, CVA, Diverticulitis, Homicidal, Suicidal, threat to staff... and all critical care pts) @ -No - Lab Data Result diagrams: 11/08/22 06:57 11/08/22 06:57 Lab Results 11/08/22 11/08/22 11/08/22 Range/Units 06:57 06:57 06:57 WBC 4.0 (3.8-10.6) k/uL RBC 4.38 (3.80-5.40) m/uL Hgb 11.1 L (11.4-16.0) gm/dL Hct 36.5 (34.0-46.0) % MCV 83.4 (80.0-100.0) fL MCH 25.3 (25.0-35.0) pg MCHC 30.3 L (31.0-37.0) g/dL RDW 17.0 H (11.5-15.5) % Plt Count 147 L (150-450) k/uL MPV 9.5 Neutrophils % 67 % Lymphocytes % 24 % Monocytes % 6 % Eosinophils % 2 % Basophils % 1 % Neutrophils # 2.7 (1.3-7.7) k/uL Lymphocytes # 0.9 L (1.0-4.8) k/uL Monocytes # 0.2 (0-1.0) k/uL Eosinophils # 0.1 (0-0.7) k/uL Basophils # 0.0 (0-0.2) k/uL Hypochromasia Marked Anisocytosis Slight PT 11.2 (9.0-12.0) sec INR 1.1 (<1.2) APTT 26.8 (22.0-30.0) sec Sodium 144 (137-145) mmol/L Potassium 3.4 L (3.5-5.1) mmol/L Chloride 108 H (98-107) mmol/L Carbon Dioxide 28 (22-30) mmol/L Anion Gap 8 mmol/L BUN 10 (7-17) mg/dL Creatinine 0.52 (0.52-1.04) mg/dL Est GFR (CKD-EPI)AfAm >90 (>60 ml/min/1.73 sqM) Est GFR (CKD-EPI)NonAf >90 (>60 ml/min/1.73 sqM) Glucose 114 H (74-99) mg/dL Calcium 8.6 (8.4-10.2) mg/dL Magnesium 1.9 (1.6-2.3) mg/dL Total Bilirubin 0.6 (0.2-1.3) mg/dL AST 82 H (14-36) U/L ALT 40 H (4-34) U/L Alkaline Phosphatase 113 (38-126) U/L Troponin I (0.000-0.034) ng/mL Total Protein 7.2 (6.3-8.2) g/dL Albumin 3.8 (3.5-5.0) g/dL 11/08/22 Range/Units 06:57 WBC (3.8-10.6) k/uL RBC (3.80-5.40) m/uL Hgb (11.4-16.0) gm/dL Hct (34.0-46.0) % MCV (80.0-100.0) fL MCH (25.0-35.0) pg MCHC (31.0-37.0) g/dL RDW (11.5-15.5) % Plt Count (150-450) k/uL MPV Neutrophils % % Lymphocytes % % Monocytes % % Eosinophils % % Basophils % % Neutrophils # (1.3-7.7) k/uL Lymphocytes # (1.0-4.8) k/uL Monocytes # (0-1.0) k/uL Eosinophils # (0-0.7) k/uL Basophils # (0-0.2) k/uL Hypochromasia Anisocytosis PT (9.0-12.0) sec INR (<1.2) APTT (22.0-30.0) sec Sodium (137-145) mmol/L Potassium (3.5-5.1) mmol/L Chloride (98-107) mmol/L Carbon Dioxide (22-30) mmol/L Anion Gap mmol/L BUN (7-17) mg/dL Creatinine (0.52-1.04) mg/dL Est GFR (CKD-EPI)AfAm (>60 ml/min/1.73 sqM) Est GFR (CKD-EPI)NonAf (>60 ml/min/1.73 sqM) Glucose (74-99) mg/dL Calcium (8.4-10.2) mg/dL Magnesium (1.6-2.3) mg/dL Total Bilirubin (0.2-1.3) mg/dL AST (14-36) U/L ALT (4-34) U/L Alkaline Phosphatase (38-126) U/L Troponin I <0.012 (0.000-0.034) ng/mL Total Protein (6.3-8.2) g/dL Albumin (3.5-5.0) g/dL Disposition Clinical Impression: Trapezius muscle spasm Disposition: HOME SELF-CARE Condition: Stable Instructions (If sedation given, give patient instructions): Muscle Strain (ED), Muscle Spasm (ED) Additional Instructions: Please return to the Emergency Department if symptoms worsen or any other concerns. Prescriptions: Ibuprofen [Motrin] 600 mg PO Q8HR PRN #20 tab PRN Reason: Pain Orphenadrine [Norflex] 100 mg PO Q12H #14 tab Is patient prescribed a controlled substance at d/c from ED?: No Referrals: Juan Manuel Hartley MD [Primary Care Provider] - 1-2 days Time of Disposition: 08:17
[2022-11-08 07:18] LABS: ALT 40 U/L (4-34); AST 82 U/L (14-36); African American GFR (CKD) >90 (>60 ml/min/1.73 sqM); Albumin 3.8 g/dL (3.5-5.0); Alkaline Phosphatase 113 U/L (38-126); Anion Gap 8 mmol/L; Blood Urea Nitrogen 10 mg/dL (7-17); Calcium 8.6 mg/dL (8.4-10.2); Carbon Dioxide 28 mmol/L (22-30); Chloride 108 mmol/L (98-107); Glucose 114 mg/dL (74-99); INR 1.1 (<1.2); Magnesium 1.9 mg/dL (1.6-2.3); Non-African American GFR(CKD) >90 (>60 ml/min/1.73 sqM); Partial Thromboplastin Time 26.8 sec (22.0-30.0); Potassium 3.4 mmol/L (3.5-5.1); Prothrombin Time 11.2 sec (9.0-12.0); Sodium 144 mmol/L (137-145); Total Bilirubin 0.6 mg/dL (0.2-1.3); Total Protein 7.2 g/dL (6.3-8.2)
--- NOTE | 2022-11-08 07:40 | XR ---
EXAMINATION TYPE: XR chest 2V DATE OF EXAM: 11/08/2022 7:32 AM COMPARISON: Chest radiographs from 07/18/2022 TECHNIQUE: XR chest 2V Frontal and lateral views of the chest. CLINICAL INDICATION:Female, 72 years old with history of Chest Pain; FINDINGS: Lungs/Pleura: There is no evidence of pleural effusion, focal consolidation, or pneumothorax. Pulmonary vascularity: Unremarkable. Heart/mediastinum: Cardiomediastinal silhouette is unremarkable. Musculoskeletal: No acute osseous pathology. IMPRESSION: No acute cardiopulmonary disease/process. No significant change from prior.
[2022-11-08] MEDS ORDERED: ACET/COD 300 MG/30 MG STARTER PACK 6 TAB BTL PO STA (08:18)
[2022-11-08 08:48] VITALS: BP 135/65; PULSE 68; RESP 16
== END 2022-11-08 08:30 | disposition home or self-care (01) ==
LOC: EC 06:02
DX: M62.830 Muscle spasm of back (principal); I10 Essential (primary) hypertension; E11.9 Type 2 diabetes mellitus without complications; Z79.82 Long term (current) use of aspirin; Z79.899 Other long term (current) drug therapy
CPT/HCPCS: 36415; 93005; 80053; 83735; 84484; 85025; 85610; 85730; 71046; 99284; 96374; 96375; J2360; J1885

== ENCOUNTER 2023-06-18 09:25 | Day surgery (SDC) | payer MEDICARE ==
[2023-06-18] MEDS ORDERED: LACTATED RINGERS 1,000 ML IV SCH (10:14)
[2023-06-18] MEDS ORDERED: LIDOCAINE 1% (10MG/ML) FOR IV START INTRADERMA PRN (10:14)
[2023-06-18 10:24] VITALS: TEMP 97.6
[2023-06-18 10:35] LABS: Glucose,Whole Blood 112 mg/dL (70-110)
[2023-06-18] MEDS ORDERED: LIDOCAINE 2% INJ 20 MG/ML (2 ML VIAL) ONE (11:50)
[2023-06-18] MEDS ORDERED: PROPOFOL 10 MG/ML 20 ML VIAL IV ONE (11:50)
--- NOTE | 2023-06-18 12:02 | P.PCN ---
Date of Procedure: 06/18/23 Procedure(s) Performed: Brief history: Patient is a pleasant scheduled for an elective upper endoscopy as well as colonoscopy as a part of evaluation of iron deficiency anemia. She denies any GI symptoms. Procedure performed: Esophagogastroduodenoscopy with biopsy Colonoscopy Preoperative diagnosis: Iron deficiency anemia Anesthesia: MAC Procedure: After informed consent was obtained from the patient was brought into the endoscopy unit and IV sedation was administered by anesthesia under continuous monitoring. Initially upper endoscopy was done. The Olympus GF 160 video endoscope was inserted inserted into the mouth and esophagus intubated without any difficulty and was gradually advanced into the stomach and duodenum and carefully examined. The bulb and second part of the duodenum appeared normal. The scope was then withdrawn into the stomach adequately insufflated with air and upon careful examination the antrum and body, cardia and fundus appeared normal. The scope was then withdrawn into the esophagus. The GE junction was located at 40 cm to the incisors. It appeared regular with no erythema erosions or ulcerations. Rest of the esophagus appeared normal. Patient tolerated the procedure well. At this time the patient continued to remain sedation. Initial digital rectal examination revealed a solid stool. Hence colonoscopy was not performed Patient tolerated the procedure well. Impression: 1. Upper endoscopy revealed antral erosive gastritis but no evidence of esophagitis or peptic ulcer disease 2. Colonoscopy not performed because of poor prep. Recommendations: Findings of this examination were discussed with the patient as well as her family. She was advised to follow with the biopsy results. She will be scheduled for colonoscopy in the next couple of weeks
[2023-06-18 12:34] VITALS: RESP 18
[2023-06-18 12:46] VITALS: BP 132/74; PULSE 78
== END 2023-06-18 12:46 | disposition home or self-care (01) ==
LOC: ORWHC2ENDO 09:25
PROVIDERS: ATTEND Internal Medicine Gastroenterology
DX: K29.50 Unspecified chronic gastritis without bleeding (principal); D50.9 Iron deficiency anemia, unspecified; I25.10 Atherosclerotic heart disease of native coronary artery without angina pectoris; J45.909 Unspecified asthma, uncomplicated; I10 Essential (primary) hypertension; E78.5 Hyperlipidemia, unspecified; E11.9 Type 2 diabetes mellitus without complications; Z79.84 Long term (current) use of oral hypoglycemic drugs; Z79.82 Long term (current) use of aspirin; Z79.899 Other long term (current) drug therapy
CPT/HCPCS: 88305; 43239; J2704; J2001

== ENCOUNTER 2023-07-06 07:14 | Day surgery (SDC) | payer MEDICARE ==
[2023-07-01 11:57] VITALS: BMI 23.6
[~2023-07-06 07:14] MED LIST: LACTATED RINGERS 1,000 ML IV SCH; LIDOCAINE 1% (10MG/ML) FOR IV START INTRADERMA PRN
[2023-07-06 08:10] VITALS: TEMP 97.7
[2023-07-06 08:19] LABS: Glucose,Whole Blood 162 mg/dL (70-110)
[2023-07-06] MEDS ORDERED: PROPOFOL 10 MG/ML 20 ML VIAL IV ONE (08:25)
--- NOTE | 2023-07-06 08:46 | P.PCN ---
Date of Procedure: 07/06/23 Procedure(s) Performed: BRIEF HISTORY: Patient is a 72-year-old pleasant white female scheduled for an elective colonoscopy as a part of evaluation of iron deficiency anemia. She had an upper endoscopy 2 weeks ago which revealed mild antral gastritis. PROCEDURE PERFORMED: Colonoscopy. PREOPERATIVE DIAGNOSIS: Iron deficiency anemia negative upper endoscopy. IV sedation per Anesthesia. PROCEDURE: After informed consent was obtained, the patient, was brought into the endoscopy unit. IV sedation was administered by Anesthesia under continuous monitoring. Digital rectal examination was normal. Initially the Olympus CF-160 flexible video colonoscope was then inserted in the rectum, gradually advanced into the cecum without any difficulty. Careful examination was performed as the scope was gradually being withdrawn. Ileocecal valve and the appendiceal orifice were visualized and appeared normal. Prep was excellent. Mucosa of the cecum, ascending colon, transverse colon, descending colon, sigmoid colon, and rectum appeared normal. Retroflexion was performed in the rectum and no lesions were seen. The patient tolerated the procedure well. IMPRESSION: Normal-appearing colon from rectum to cecum with no evidence of colorectal neoplasia . RECOMMENDATIONS: Findings of this examination were discussed with the patient as well as a family. She was advised to be a high-fiber diet and take fiber supplements a regular basis and have a repeat colonoscopy at age 79..
[2023-07-06 09:25] VITALS: BP 137/63; PULSE 72; RESP 18
== END 2023-07-06 09:40 | disposition home or self-care (01) ==
LOC: ORWHC2ENDO 07:14
PROVIDERS: ATTEND Internal Medicine Gastroenterology
DX: D50.9 Iron deficiency anemia, unspecified (principal); K29.70 Gastritis, unspecified, without bleeding; I10 Essential (primary) hypertension; I25.10 Atherosclerotic heart disease of native coronary artery without angina pectoris; J45.909 Unspecified asthma, uncomplicated; Z98.890 Other specified postprocedural states; Z79.84 Long term (current) use of oral hypoglycemic drugs; Z79.891 Long term (current) use of opiate analgesic; Z86.19 Personal history of other infectious and parasitic diseases; Z79.4 Long term (current) use of insulin; Z79.899 Other long term (current) drug therapy
CPT/HCPCS: 45378; J2704

== ENCOUNTER 2024-05-29 23:23 | Inpatient (IN) | payer MEDICARE ==
--- NOTE | 2024-05-29 23:29 | ED ---
General Adult HPI - General Chief complaint: Abdominal Pain Stated complaint: Abd pain back pain Time Seen by Provider: 05/29/24 23:28 Source: family Mode of arrival: wheelchair Limitations: no limitations - History of Present Illness Initial comments: Patient presents to the ED with her complaining of having right upper quadrant abdominal pain radiating to the right side of her back constantly for the past 5 to 6 hours or so. Patient states that her pain began after eating some "veal cutlets". Patient admits to having mild associated nausea as well. Patient denies trauma or injury, fever or chills, chest pain, neck/arm/jaw pain, dyspnea, dizziness, cough or cold symptoms, pleuritic pain, vomiting, diarrhea or constipation, bloody or melanotic stool, dysuria/hematuria/urinary frequency/urinary symptoms, lower abdominal pain, or any other symptoms or complaints. Patient states that her pain is currently 67/10 in severity. - Related Data Home Medications Medication Instructions Recorded Confirmed Nitroglycerin Sl Tabs [Nitrostat] 0.4 mg SL Q5M PRN 04/11/14 05/30/24 Acarbose 100 mg PO TID 07/12/15 05/30/24 Gabapentin 400 mg PO TID 07/12/15 05/30/24 Atorvastatin [Lipitor] 40 mg PO DAILY 06/15/23 05/30/24 Dapagliflozin Propanediol [Farxiga] 10 mg PO DAILY 06/15/23 05/30/24 Insulin Detemir [Levemir Flexpen] 55 units SQ DAILY 06/15/23 05/30/24 Prevagen Extra Strength 1 tab PO DAILY 06/15/23 05/30/24 metFORMIN HCL 1,000 mg PO BID 06/15/23 05/30/24 Albuterol Sulfate [Albuterol 2 puff PO RT-Q4H PRN 05/30/24 05/30/24 Sulfate Hfa] Aspirin EC [Ecotrin Low Dose] 81 mg PO DAILY 05/30/24 05/30/24 DULoxetine HCL [Cymbalta] 30 mg PO DAILY 05/30/24 05/30/24 Dulaglutide [Trulicity] 3 mg SQ WEEKLY 05/30/24 05/30/24 Ferrous Sulfate [Feosol] 325 mg PO DAILY 05/30/24 05/30/24 Pioglitazone [Actos] 15 mg PO DAILY 05/30/24 05/30/24 Previous Rx's Medication Instructions Recorded Pantoprazole Sodium [Protonix] 40 mg PO DAILY 14 Days #14 tab 07/18/22 Allergies Allergy/AdvReac Type Severity Reaction Status Date / Time No Known Allergies Allergy Verified 05/30/24 10:08 Review of Systems ROS Statement: Those systems with pertinent positive or pertinent negative responses have been documented in the HPI. ROS Other: All systems not noted in ROS Statement are negative. Past Medical History Past Medical History: Asthma, Chest Pain / Angina, Diabetes Mellitus, Hypertension, Liver Disease Additional Past Medical History / Comment(s): HX OF HEPATITIS A @ 12 YRS OLD, ON AND OFF DIARRHEA. Bilateral shoulder, arm and hip., iron deficiency anemia. History of Any Multi-Drug Resistant Organisms: None Reported Past Surgical History: Section, Hysterectomy, Orthopedic Surgery Additional Past Surgical History / Comment(s): RT CARPAL TUNNEL, CYSTS AND TRIGGER FINGER RT & LT HANDS, CS X4., EGD Past Anesthesia/Blood Transfusion Reactions: No Reported Reaction, Motion Sickness Additional Past Anesthesia/Blood Transfusion Reaction / Comment(s): Niece passed and almost , not sure exactly what happened. Past Psychological History: No Psychological Hx Reported Smoking Status: Never smoker Past Alcohol Use History: None Reported Past Drug Use History: None Reported - Past Family History Sister(s) Family Medical History: Cancer Mother History Unknown: Yes Family Medical History: Deep Vein Thrombosis (DVT), Myocardial Infarction ([place]) Father History Unknown: Yes Additional Family Medical History / Comment(s): emphysema General Exam Limitations: no limitations General appearance: alert, in no apparent distress Eye exam: Present: normal appearance ENT exam: Present: mucous membranes moist Respiratory exam: Present: normal lung sounds bilaterally. Absent: respiratory distress, wheezes, rales, rhonchi, stridor, chest wall tenderness Cardiovascular Exam: Present: regular rate, normal rhythm, normal heart sounds, other (Normal radial pulses bilaterally) GI/Abdominal exam: Present: soft, other (Moderate right upper quadrant abdominal tenderness). Absent: distended, guarding, rebound Extremities exam: Absent: tenderness, pedal edema, calf tenderness Back exam: Absent: tenderness, CVA tenderness (R), CVA tenderness (L) Neurological exam: Present: alert, oriented X3 Psychiatric exam: Present: normal affect Skin exam: Present: warm, dry, normal color Course Vital Signs 05/29/24 05/30/24 05/30/24 23:24 02:22 03:56 Temperature 97.4 F L 97.8 F 97.8 F Pulse Rate 69 94 110 H Respiratory 18 16 18 Rate Blood Pressure 150/81 151/86 135/87 O2 Sat by Pulse 95 92 L 88 L Oximetry 05/30/24 03:57 Temperature Pulse Rate Respiratory Rate Blood Pressure O2 Sat by Pulse 91 L Oximetry - Reevaluation(s) Reevaluation #1: 05/30/24 01:43 Patient was endorsed to Dr. Gregg (secondary to end of my shift) the patient's labs results and gallbladder ultrasound report still pending. Dr. Gergg to follow-up on these results and to take over care of the patient at this time. EKG Findings - EKG Comments: EKG Findings:: ED physician interpretation (interpreted by me): Normal sinus rhythm, no ectopy, ventricular rate of 77 bpm, normal [place] interval, LVH with strain pattern, QRS duration of 122 ms, normal QT interval, normal axis, no ST elevation Medical Decision Making - Medical Decision Making Was pt. sent in by a medical professional or institution (, PA, COMMERCIAL LOAN ANALYST, urgent care, hospital, or group home...) When possible be specific @ -No Did you speak to anyone other than the patient for history (EMS, parent, family, police, friend...)? What history was obtained from this source @ -No Did you review nursing and triage notes (agree or disagree)? Why? @ -I reviewed and agree with nursing and triage notes Were old charts reviewed (outside hosp., previous admission, EMS record, old EKG, old radiological studies, urgent care reports/EKG's, group home records)? Report findings @ -No old charts were reviewed Differential Diagnosis (chest pain, altered mental status, abdominal pain women, abdominal pain men, vaginal bleeding, weakness, fever, dyspnea, syncope, headache, dizziness, GI bleed, back pain, seizure, CVA, palpatations, mental health, musculoskeletal)? @ -Differential Abdominal Pain Women: Appendicitis, Cholecystitis, diverticulitis, ischemic bowel, pancreatitis, he patitis, gastroenteritis, AAA, incarcerated hernia, bowel obstruction, constipation, inflammatory bowel, ACS, peptic ulcer disease, splenic infarction, perforated viscus, kidney stone, UTI/pyelonephritis, this is not meant to be an all-inclusive list EKG interpreted by me (3pts min.). @ -As above X-rays interpreted by me (1pt min.). @ -None done What testing was considered but not performed or refused? (CT, X-rays, U/S, labs)? Why? @ -None What meds were considered but not given or refused? Why? @ -None Did you discuss the management of the patient with other professionals (professionals i.e. DrLuz Elena, PA, COMMERCIAL LOAN ANALYST, lab, RT, psych nurse, social media executive, rental boats caretaker, teacher, air force senior officer, case filler)? Give summary @ -No Was smoking cessation discussed for >3mins.? @ -No Was critical care preformed (if so, how long)? @ -No Were there social determinants of health that impacted care today? How? (Homelessness, low income, unemployed, alcoholism, drug addiction, transportation, low edu. Level, literacy, decrease access to med. care, [facility], rehab)? @ -No Was there de-escalation of care discussed even if they declined (Discuss DNR or withdrawal of care, Hospice)? DNR status @ -No What co-morbidities impacted this encounter? (DM, HTN, Smoking, COPD, CAD, Cancer, CVA, ARF, Chemo, Hep., AIDS, mental health diagnosis, sleep apnea, morbid obesity)? @ -None Was patient admitted / discharged? Hospital course, mention meds given and route, prescriptions, significant lab abnormalities, going to OR and other pertinent info. @ -Patient was endorsed to Dr. Gregg (secondary to end of my shift) the patient's labs results and gallbladder ultrasound report still pending. Dr. Gregg to follow-up on these results and to take over care of the patient at this time. - Lab Data Result diagrams: 05/29/24 23:42 05/30/24 04:10 Lab Results 05/29/24 05/29/24 Range/Units 23:42 23:42 WBC 6.3 (3.8-10.6) k/uL RBC 4.80 (3.80-5.40) m/uL Hgb 13.2 (11.4-16.0) gm/dL Hct 42.1 (34.0-46.0) % MCV 87.8 (80.0-100.0) fL MCH 27.5 (25.0-35.0) pg MCHC 31.3 (31.0-37.0) g/dL RDW 16.8 H (11.5-15.5) % Plt Count 120 L (150-450) k/uL MPV 7.7 Neutrophils % 69 % Lymphocytes % 23 % Monocytes % 5 % Eosinophils % 2 % Basophils % 0 % Neutrophils # 4.3 (1.3-7.7) k/uL Lymphocytes # 1.5 (1.0-4.8) k/uL Monocytes # 0.3 (0-1.0) k/uL Eosinophils # 0.1 (0-0.7) k/uL Basophils # 0.0 (0-0.2) k/uL Hypochromasia Moderate Anisocytosis Slight Plasma Lactic Acid Roberto 1.6 (0.7-2.0) mmol/L Disposition Clinical Impression: Abdominal pain Disposition: ADMITTED IP TO THIS HOSP Is patient prescribed a controlled substance at d/c from ED?: No
[2024-05-30 00:17] LABS: Anisocytosis Slight; Basophils % (A) 0 %; Eosinophils # (A) 0.1 k/uL (0-0.7); Eosinophils % (A) 2 %; HCT 42.1 % (34.0-46.0); HGB 13.2 gm/dL (11.4-16.0); Hypochromasia Moderate; Lymphocytes # (A) 1.5 k/uL (1.0-4.8); Lymphocytes % (A) 23 %; MCH 27.5 pg (25.0-35.0); MCHC 31.3 g/dL (31.0-37.0); MCV 87.8 fL (80.0-100.0); Mean Platelet Volume 7.7; Monocytes # (A) 0.3 k/uL (0-1.0); Monocytes % (A) 5 %; Neutrophils # (A) 4.3 k/uL (1.3-7.7); Neutrophils % (A) 69 %; Platelet Count 120 k/uL (150-450); RDW 16.8 % (11.5-15.5); WBC 6.3 k/uL (3.8-10.6)
[2024-05-30] MEDS: SODIUM CHLORIDE 0.9% 500 ML 500 ML IV ONE (00:21)
[2024-05-30] MEDS: ONDANSETRON 4 MG/2 ML VIAL IVP STA (00:21)
[2024-05-30] MEDS: HYDROmorphone 1 MG/ML 1 ML SYRINGE IVP STA ×2 (00:22→02:46)
--- NOTE | 2024-05-30 02:10 | US ---
EXAM: US Abdomen Limited, Gallbladder CLINICAL HISTORY: ITS.REASON US Reason: RUQ pain TECHNIQUE: Real-time ultrasound of the right upper quadrant with image documentation. COMPARISON: No relevant prior studies available. FINDINGS: Limitations: Limited by bowel gas. Gallbladder: Distended gallbladder. No wall thickening. Stone at the gallbladder neck. Common bile duct: Unremarkable as visualized. No dilation. Pancreas: Suboptimally characterized. Liver: Liver measures 13.5 cm. IMPRESSION: 1. Stone at the gallbladder neck with gallbladder distention. No significant gallbladder wall thickening. No biliary dilatation. Correlate clinically.
[2024-05-30] MEDS ORDERED: NALOXONE 0.4 MG/ML 1 ML VIAL IV PRN (02:50)
[2024-05-30] MEDS ORDERED: HYDROmorphone 1 MG/ML 1 ML SYRINGE IVP PRN (02:50)
[2024-05-30 04:36] LABS: ALT 26 U/L (4-34); AST 41 U/L (14-36); African American GFR (CKD) >90 (>60 ml/min/1.73 sqM); Alkaline Phosphatase 78 U/L (38-126); Amylase 34 U/L (30-110); Anion Gap 6 mmol/L; Blood Urea Nitrogen 18 mg/dL (7-17); Carbon Dioxide 28 mmol/L (22-30); Chloride 105 mmol/L (98-107); Glucose 125 mg/dL (74-99); Lipase 31 U/L (23-300); Non-African American GFR(CKD) >90 (>60 ml/min/1.73 sqM); Potassium 3.9 mmol/L (3.5-5.1); Sodium 139 mmol/L (137-145); Total Bilirubin 0.8 mg/dL (0.2-1.3); Total Protein 6.9 g/dL (6.3-8.2)
[2024-05-30 07:50] LABS: Glucose,Whole Blood 116 mg/dL (70-110)
[2024-05-30 09:26] LABS: Appearance,Urine Cloudy (Clear); Bacteria,Urine Rare /hpf; Bilirubin,Urine Negative (Negative); Blood,Urine Negative (Negative); Color,Urine Light Yellow; Glucose,Urine (UA) 4+ (Negative); Ketones,Urine Negative (Negative); Leukocyte Esterase,Urine Trace (Negative); Mucus,Urine Rare /hpf; Nitrite,Urine Negative (Negative); PH, Urine 5.5 (5.0-8.0); Protein,Urine Negative (Negative); RBC,Urine 5 /hpf (0-5); Specific Gravity,Urine 1.024 (1.001-1.035); Squamous Epithelial Cell,Urine 2 /hpf (0-4); Urobilinogen,Urine <2.0 mg/dL (<2.0); WBC,Urine 7 /hpf (0-5)
[2024-05-30] MEDS: SODIUM CHLORIDE 0.9% 1,000 ML IV SCH (09:27)
[2024-05-30] MEDS: PANTOPRAZOLE 40 MG/10 ML VIAL IV SCH (09:29)
[2024-05-30] MEDS: ACETAMINOPHEN IV (For NPO) 1,000 MG in EMPTY BAG 1 BAG IVPB SCH (09:29)
--- NOTE | 2024-05-30 10:34 | P.GSHP ---
History of Present Illness H&P Date: 05/30/24 CHIEF COMPLAINT: Abdominal pain HISTORY OF PRESENT ILLNESS: This is a 73-year-old female who presented to the hospital with complaints of right upper quadrant abdominal pain that radiated to the back after eating veal Parmesan last night for dinner. She has been nauseous. No vomiting. She had gallbladder ultrasound that had shown gallstone in the neck of the gallbladder with gallbladder distention. Patient reports the pain was very severe. She has never had symptoms like this before. Denies any fever chills or sweats. Past surgical history does include a and hysterectomy. She is a diabetic. She denies any cardiac history. Denies being on any blood thinners. Patient denies any chest pain or shortness of breath. PAST MEDICAL HISTORY: Asthma, Chest Pain / Angina, Diabetes Mellitus, Hypertension, PAST SURGICAL HISTORY: Section, Hysterectomy, Orthopedic Surgery MEDICATIONS: See below ALLERGIES: See below SOCIAL HISTORY: No illicit drug use. REVIEW OF SYSTEMS: CONSTITUTIONAL: Denies fever or chills. HEENT: Denies blurred vision, vision changes, or eye pain. Denies hemoptysis CARDIOVASCULAR: Denies chest pain or pressure. RESPIRATORY: No shortness of breath. GASTROINTESTINAL: See HPI for pertinent findings HEMATOLOGIC: Denies bleeding disorders. GENITOURINARY: Denies any blood in urine or increased urinary frequency. SKIN: Denies pruitis. Denies rash. PHYSICAL EXAM: VITAL SIGNS: Reviewed GENERAL: Well-developed in no acute distress. HEENT: No sclera icterus. Extraocular movements grossly intact. Moist buccal mucosa. Head is atraumatic, normocephalic. No nasal drainage. ABDOMEN: Soft. Nondistended. Tenderness to palpation right upper quadrant NEUROLOGIC: Alert and oriented. Cranial nerves II through XII grossly intact. LABORATORY DATA: WBC 6.3 Hgb 13.2 platelets 120 Na 139 K 3.9 Cr 0.56 Total bilirubin 0.8 AST 41 ALT 26 alk phos 78 Troponin negative Lipase 31 IMAGING: Gallbladder ultrasound reports stone at the gallbladder neck with gallbladder distention. No significant gallbladder wall thickening. No biliary dilatation. ASSESSMENT: 1. Symptomatic cholelithiasis. Ultrasound reporting stone at the gallbladder neck with gallbladder distention 2. Cholecystitis PLAN: -Patient scheduled for laparoscopic cholecystectomy today -Consult cardiology due to abnormal EKG and cardiac clearance -Start antibiotics -Start IV fluids -Consult medicine for medical management -IV Tylenol added for pain management -Keep patient n.p.o. Physician Engineer Sergeant note has been reviewed by physician. Signing provider agrees with the documented findings, assessment, and plan of care. Past Medical History Past Medical History: Asthma, Chest Pain / Angina, Diabetes Mellitus, Hype rtension, Liver Disease Additional Past Medical History / Comment(s): HX OF HEPATITIS A @ 12 YRS OLD, ON AND OFF DIARRHEA. Bilateral shoulder, arm and hip., iron deficiency anemia. History of Any Multi-Drug Resistant Organisms: None Reported Past Surgical History: Section, Hysterectomy, Orthopedic Surgery Additional Past Surgical History / Comment(s): RT CARPAL TUNNEL, CYSTS AND TRIGGER FINGER RT & LT HANDS, CS X4., EGD Past Anesthesia/Blood Transfusion Reactions: No Reported Reaction, Motion Sickness Additional Past Anesthesia/Blood Transfusion Reaction / Comment(s): Niece passed and almost , not sure exactly what happened. Past Psychological History: No Psychological Hx Reported Smoking Status: Never smoker Past Alcohol Use History: None Reported Past Drug Use History: None Reported - Past Family History Sister(s) Family Medical History: Cancer Mother History Unknown: Yes Family Medical History: Deep Vein Thrombosis (DVT), Myocardial Infarction ([place]) Father History Unknown: Yes Additional Family Medical History / Comment(s): emphysema Medications and Allergies Home Medications Medication Instructions Recorded Confirmed Type Nitroglycerin Sl Tabs [Nitrostat] 0.4 mg SL Q5M PRN 04/11/14 05/30/24 History Acarbose 100 mg PO TID 07/12/15 05/30/24 History Gabapentin 400 mg PO TID 07/12/15 05/30/24 History Pantoprazole Sodium [Protonix] 40 mg PO DAILY 14 Days #14 tab 07/18/22 05/30/24 Rx Atorvastatin [Lipitor] 40 mg PO DAILY 06/15/23 05/30/24 History Dapagliflozin Propanediol [Farxiga] 10 mg PO DAILY 06/15/23 05/30/24 History Insulin Detemir [Levemir Flexpen] 55 units SQ DAILY 06/15/23 05/30/24 History Prevagen Extra Strength 1 tab PO DAILY 06/15/23 05/30/24 History metFORMIN HCL 1,000 mg PO BID 06/15/23 05/30/24 History Albuterol Sulfate [Albuterol 2 puff PO RT-Q4H PRN 05/30/24 05/30/24 History Sulfate Hfa] Aspirin EC [Ecotrin Low Dose] 81 mg PO DAILY 05/30/24 05/30/24 History DULoxetine HCL [Cymbalta] 30 mg PO DAILY 05/30/24 05/30/24 History Dulaglutide [Trulicity] 3 mg SQ WEEKLY 05/30/24 05/30/24 History Ferrous Sulfate [Feosol] 325 mg PO DAILY 05/30/24 05/30/24 History Pioglitazone [Actos] 15 mg PO DAILY 05/30/24 05/30/24 History Allergies Allergy/AdvReac Type Severity Reaction Status Date / Time No Known Allergies Allergy Verified 05/30/24 10:08 Surgical - Exam Vital Signs Temp Pulse Resp BP Pulse Ox 97.4 F L 69 18 150/81 95 05/29/24 23:24 05/29/24 23:24 05/29/24 23:24 05/29/24 23:24 05/29/24 23:24 Results - Labs 05/29/24 23:42 05/30/24 04:10 Abnormal Lab Results - Last 24 Hours (Table) 05/29/24 05/30/24 05/30/24 Range/Units 23:42 04:10 07:49 RDW 16.8 H (11.5-15.5) % Plt Count 120 L (150-450) k/uL BUN 18 H (7-17) mg/dL Glucose 125 H (74-99) mg/dL POC Glucose (mg/dL) 116 H (70-110) mg/dL AST 41 H (14-36) U/L Urine Appearance (Clear) Urine Glucose (UA) (Negative) Ur Leukocyte Esterase (Negative) Urine WBC (0-5) /hpf Urine Bacteria (None) /hpf Urine Mucus (None) /hpf 05/30/24 Range/Units 08:38 RDW (11.5-15.5) % Plt Count (150-450) k/uL BUN (7-17) mg/dL Glucose (74-99) mg/dL POC Glucose (mg/dL) (70-110) mg/dL AST (14-36) U/L Urine Appearance Cloudy H (Clear) Urine Glucose (UA) 4+ H (Negative) Ur Leukocyte Esterase Trace H (Negative) Urine WBC 7 H (0-5) /hpf Urine Bacteria Rare H (None) /hpf Urine Mucus Rare H (None) /hpf Diabetes panel 05/30/24 Range/Units 04:10 Sodium 139 (137-145) mmol/L Potassium 3.9 (3.5-5.1) mmol/L Chloride 105 (98-107) mmol/L Carbon Dioxide 28 (22-30) mmol/L BUN 18 H (7-17) mg/dL Creatinine 0.56 (0.52-1.04) mg/dL Glucose 125 H (74-99) mg/dL Calcium 9.0 (8.4-10.2) mg/dL AST 41 H (14-36) U/L ALT 26 (4-34) U/L Alkaline Phosphatase 78 (38-126) U/L Total Protein 6.9 (6.3-8.2) g/dL Albumin 4.0 (3.5-5.0) g/dL Calcium panel 05/30/24 Range/Units 04:10 Calcium 9.0 (8.4-10.2) mg/dL Albumin 4.0 (3.5-5.0) g/dL Pituitary panel 05/30/24 Range/Units 04:10 Sodium 139 (137-145) mmol/L Potassium 3.9 (3.5-5.1) mmol/L Chloride 105 (98-107) mmol/L Carbon Dioxide 28 (22-30) mmol/L BUN 18 H (7-17) mg/dL Creatinine 0.56 (0.52-1.04) mg/dL Glucose 125 H (74-99) mg/dL Calcium 9.0 (8.4-10.2) mg/dL Adrenal panel 05/30/24 Range/Units 04:10 Sodium 139 (137-145) mmol/L Potassium 3.9 (3.5-5.1) mmol/L Chloride 105 (98-107) mmol/L Carbon Dioxide 28 (22-30) mmol/L BUN 18 H (7-17) mg/dL Creatinine 0.56 (0.52-1.04) mg/dL Glucose 125 H (74-99) mg/dL Calcium 9.0 (8.4-10.2) mg/dL Total Bilirubin 0.8 (0.2-1.3) mg/dL AST 41 H (14-36) U/L ALT 26 (4-34) U/L Alkaline Phosphatase 78 (38-126) U/L Total Protein 6.9 (6.3-8.2) g/dL Albumin 4.0 (3.5-5.0) g/dL
[2024-05-30] MEDS: PIPERACILLIN-TAZOBACTAM 3.375 GM in SODIUM CHLORIDE 0.9% 100 ML IVPB SCH ×2 (11:14→17:35)
--- NOTE | 2024-05-30 11:39 | P.CRDCN ---
History of Present Illness History of present illness: HISTORY OF PRESENT ILLNESS: This is a 73-year-old female with a past medical history significant for nonischemic cardiomyopathy with recovered EF, hyperlipidemia, and diabetes. Patient follows in the office with Dr. Guy. We have been asked to see the patient in consultation for cardiac clearance. Patient examined at the bedside. Patient presented to the hospital with a chief complaint of abdominal pain. Patient was found to have symptomatic cholelithiasis and cholecystitis and is scheduled to undergo laparoscopic cholecystectomy today with Dr. Ordaz. The patient currently denies any chest pain or pressure. She denies any shortness of breath. Denies any dizziness or lightheadedness. Patient's vital signs are stable. DIAGNOSTICS: - EKG reveals sinus mechanism with nonspecific ST-T wave changes. EKG from October 2020 in the office is similar with no changes noted. - Current home cardiac medications include Lipitor 40 mg daily - Most recent echocardiogram obtained in March 2023 revealed ejection fraction 50%, global LV hypokinesis without regional heterogeneity, grade 1 diastolic dysfunction, mild to moderate MR - Cardiac catheterization history: 2010 with possible proximal RCA spasm. No significant CAD noted. - Patient underwent Lexiscan stress test in April 2023 without evidence of inducible ischemia REVIEW OF SYSTEMS: At the time of my exam: CONSTITUTIONAL: Denies fever or chills. HEENT: Denies blurred vision, vision changes, or eye pain. Denies hemoptysis CARDIOVASCULAR: Denies chest pain. Denies orthopnea. Denies PND. Denies palpitations RESPIRATORY: Denies shortness of breath. GASTROINTESTINAL: Denies abdominal pain. Denies nausea or vomiting. HEMATOLOGIC: Denies bleeding disorders. GENITOURINARY: Denies any blood in urine. SKIN: Denies pruitis. Denies rash. PHYSICAL EXAM: VITAL SIGNS: Reviewed. GENERAL: Well-developed in no acute distress. HEENT: Head is normocephalic. Pupils are equal, round. Sclerae anicteric. Mucous membranes of the mouth are moist. Neck supple. No JVD or thyromegaly LUNGS: Respirations even and unlabored. Lungs essentially clear to auscultation bilaterally. HEART: Regular rate and rhythm. S1 and S2 heard. Systolic murmur noted. ABDOMEN: Soft. Nondistended. Nontender. EXTREMITIES: Normal range of motion. No clubbing or cyanosis. Peripheral pulses intact. No lower extremity edema NEUROLOGIC: Awake and alert. Oriented x 3. ASSESSMENT: Symptomatic cholelithiasis History of nonischemic cardiomyopathy with recovered EF, most recently 50% in March 2023 History of possible proximal RCA spasm, per cardiac catheterization in [address] Smith's assessment Patient interviewed and examined. No cardiac symptoms. No cardiac symptoms of the last several weeks Complaining of abdominal symptoms She is stable to proceed with surgery under general anesthesia PLAN: No need to repeat echocardiogram at this time. Patient with previous nonischemic cardiomyopathy with recovered EF. Most recent EF 50% from March 2023. It is noted that the patient underwent Lexiscan stress test in April 2023 in the office which was negative for inducible ischemia EKG without acute changes and is unchanged from patients EKG in the office in 2019 Continue home cardiac medications Cardiac clearance pending evaluation by Dr. Smith this afternoon Nurse practitioner note has been reviewed by physician. Signing provider agrees with the documented findings, assessment, and plan of care documented by [employer] as a scribe. Past Medical History Past Medical History: Asthma, Chest Pain / Angina, Diabetes Mellitus, Hypertension, Liver Disease Additional Past Medical History / Comment(s): HX OF HEPATITIS A @ 12 YRS OLD, ON AND OFF DIARRHEA. Bilateral shoulder, arm and hip., iron deficiency anemia. History of Any Multi-Drug Resistant Organisms: None Reported Past Surgical History: Section, Hysterectomy, Orthopedic Surgery Additional Past Surgical History / Comment(s): RT CARPAL TUNNEL, CYSTS AND TRIGGER FINGER RT & LT HANDS, CS X4., EGD Past Anesthesia/Blood Transfusion Reactions: No Reported Reaction, Motion Sickness Additional Past Anesthesia/Blood Transfusion Reaction / Comment(s): Niece passed and almost , not sure exactly what happened. Past Psychological History: No Psychological Hx Reported Smoking Status: Never smoker Past Alcohol Use History: None Reported Past Drug Use History: None Reported - Past Family History Sister(s) Family Medical History: Cancer Mother History Unknown: Yes Family Medical History: Deep Vein Thrombosis (DVT), Myocardial Infarction ([place]) Father History Unknown: Yes Additional Family Medical History / Comment(s): emphysema Medications and Allergies Home Medications Medication Instructions Recorded Confirmed Type Nitroglycerin Sl Tabs [Nitrostat] 0.4 mg SL Q5M PRN 04/11/14 05/30/24 History Acarbose 100 mg PO TID 07/12/15 05/30/24 History Gabapentin 400 mg PO TID 07/12/15 05/30/24 History Pantoprazole Sodium [Protonix] 40 mg PO DAILY 14 Days #14 tab 07/18/22 05/30/24 Rx Atorvastatin [Lipitor] 40 mg PO DAILY 06/15/23 05/30/24 History Dapagliflozin Propanediol [Farxiga] 10 mg PO DAILY 06/15/23 05/30/24 History Insulin Detemir [Levemir Flexpen] 55 units SQ DAILY 06/15/23 05/30/24 History Prevagen Extra Strength 1 tab PO DAILY 06/15/23 05/30/24 History metFORMIN HCL 1,000 mg PO BID 06/15/23 05/30/24 History Albuterol Sulfate [Albuterol 2 puff PO RT-Q4H PRN 05/30/24 05/30/24 History Sulfate Hfa] Aspirin EC [Ecotrin Low Dose] 81 mg PO DAILY 05/30/24 05/30/24 History DULoxetine HCL [Cymbalta] 30 mg PO DAILY 05/30/24 05/30/24 History Dulaglutide [Trulicity] 3 mg SQ WEEKLY 05/30/24 05/30/24 History Ferrous Sulfate [Feosol] 325 mg PO DAILY 05/30/24 05/30/24 History Pioglitazone [Actos] 15 mg PO DAILY 05/30/24 05/30/24 History Allergies Allergy/AdvReac Type Severity Reaction Status Date / Time No Known Allergies Allergy Verified 05/30/24 10:08 Physical Exam Vitals: Vital Signs Temp Pulse Pulse Resp BP BP Pulse Ox 05/30/24 07:00 97.7 F 115 H 15 137/81 96 05/30/24 03:57 91 L 05/30/24 03:56 97.8 F 110 H 18 135/87 88 L 05/30/24 02:22 97.8 F 94 16 151/86 92 L 05/29/24 23:24 97.4 F L 69 18 150/81 95 Intake and Output 05/29/24 05/30/24 05/30/24 22:59 06:59 14:59 Other: Weight 63.503 kg Results 05/29/24 23:42 05/30/24 04:10 Cardiac Enzymes 05/30/24 05/30/24 Range/Units 04:10 04:10 AST 41 H (14-36) U/L Troponin I <0.012 (0.000-0.034) ng/mL CBC 05/29/24 Range/Units 23:42 WBC 6.3 (3.8-10.6) k/uL RBC 4.80 (3.80-5.40) m/uL Hgb 13.2 (11.4-16.0) gm/dL Hct 42.1 (34.0-46.0) % Plt Count 120 L (150-450) k/uL Comprehensive Metabolic Panel 05/30/24 Range/Units 04:10 Sodium 139 (137-145) mmol/L Potassium 3.9 (3.5-5.1) mmol/L Chloride 105 (98-107) mmol/L Carbon Dioxide 28 (22-30) mmol/L BUN 18 H (7-17) mg/dL Creatinine 0.56 (0.52-1.04) mg/dL Glucose 125 H (74-99) mg/dL Calcium 9.0 (8.4-10.2) mg/dL AST 41 H (14-36) U/L ALT 26 (4-34) U/L Alkaline Phosphatase 78 (38-126) U/L Total Protein 6.9 (6.3-8.2) g/dL Albumin 4.0 (3.5-5.0) g/dL Current Medications Generic Name Dose Route Start Last Admin Trade Name Freq PRN Reason Stop Dose Admin Hydromorphone HCl 0.5 mg 05/30/24 02:50 Hydromorphone 0.5 Mg/0.5 Ml Syringe IVP Q3HR PRN Moderate Pain (Scale 4 to 6) Hydromorphone HCl 1 mg 05/30/24 02:50 Hydromorphone 1 Mg/Ml 1 Ml Syringe IVP Q3HR PRN Severe Pain (Scale 7 to 10) Sodium Chloride 1,000 mls @ 75 mls/hr 05/30/24 08:15 05/30/24 09:27 Saline 0.9% IV 75 mls/hr .[id number] SINA Administration Acetaminophen 1,000 mg/ IV 100 mls @ 400 mls/hr 05/30/24 09:00 05/30/24 09:29 Solution IVPB 05/31/24 03:14 400 mls/hr Q6H SINA Administration Piperacillin Sod/Tazobactam 100 mls @ 25 mls/hr 05/30/24 10:45 05/30/24 11:14 Sod 3.375 gm/ Sodium Chloride IVPB 25 mls/hr Q8HR SINA Administration Protocol Naloxone HCl 0.2 mg 05/30/24 02:50 Naloxone 0.4 Mg/Ml 1 Ml Vial IV Q2M PRN Opioid Reversal Ondansetron HCl 4 mg 05/30/24 02:50 Ondansetron 4 Mg/2 Ml Vial IVP Q8HR PRN Nausea And Vomiting Pantoprazole Sodium 40 mg 05/30/24 09:00 05/30/24 09:29 Pantoprazole 40 Mg/10 Ml Vial IV 40 mg DAILY SINA Administration Intake and Output 05/29/24 05/30/24 05/30/24 22:59 06:59 14:59 Other: Weight 63.503 kg 05/29/24 23:42 05/30/24 04:10
[2024-05-30 12:14] LABS: Glucose,Whole Blood 148 mg/dL (70-110)
[2024-05-30] MEDS ORDERED: ALBUTEROL HFA INHALER INHALATION PRN (13:05)
[2024-05-30] MEDS ORDERED: DEXTROSE 50% SYRINGE 50 ML IVP PRN ×2 (13:09)
--- NOTE | 2024-05-30 13:14 | P.CONS ---
History of Present Illness - Reason for Consult Consult date: 05/30/24 Medical Management Requesting physician: Geoff Ordaz - History of Present Illness History of Presenting Illness: Patient is a very pleasant 73-year-old female with a past medical history of CAD, nonischemic cardiomyopathy, hyperlipidemia, iron deficiency anemia, and insulin-dependent diabetes mellitus. She presented to the emergency department on 05/29/2024 with a chief complaint of right upper quadrant abdominal pain. Patient reports the symptoms began approximately 2 days ago and worsen after eating. Reports nausea, but denies any episodes of vomiting, denies fevers, chills, diaphoresis, chest pain, palpitations, shortness of breath, or experiencing any difficulties with or changes in her urinary or bowel function. Upon arrival to our facility, patient underwent evaluation in the emergency department. Vital signs upon arrival show blood pressure 150/81, heart rate 69, respiratory rate 18, temp 97.4 F, and SpO2 of 95% on room air. EKG showing normal sinus rhythm at 77 bpm with left ventricular hypertrophy and T wave inversion in lateral lead aVL, otherwise no significant T wave or ST abnormalities showing no signs of acute ischemia upon personal review and interpretation. Labs were completed and reviewed. CBC showing mild thrombocytopenia with platelet count of 120 otherwise normal findings. BMP mickey wing mild prerenal azotemia with BUN of 18 and blood glucose of 125. Liver profile showing elevated AST of 41 otherwise normal findings. Lactic acid was 1.6. Troponin was negative at less than 0.012. Urinalysis negative for infection. Ultrasound right upper quadrant showing stone at the gallbladder neck with gallbladder distention. Patient was admitted under general surgery team and we were consulted for medical management throughout hospitalization. Review of systems: Pertinent positives and negatives as discussed in HPI, a complete review of systems was performed and all other systems are negative. Physical exam: Vital signs reviewed and stable. General: Nontoxic, no distress and appears stated age. Derm: Skin warm and dry, normal coloration for ethnicity. Head: Atraumatic, normocephalic and symmetric. Eyes: EOMs intact, no lid lag, and anicteric sclera Mouth: no lip lesions, mucus membranes moist Cardiovascular: regular rate and rhythm with normal S1S2, systolic murmur, positive posterior tibial pulses bilaterally, and cap refill < 2 seconds. Lungs: Respirations even, regular, and unlabored on room air. Lungs CTA bilaterally, no rhonchi, no rales, no wheezing, and no accessory muscle usage. Abdominal: soft, mild tenderness to RUQ, no guarding, no appreciable organomegaly Ext: ROM intact. No gross muscle atrophy, no edema, no contractures Neuro: Speech clear, face symmetrical and CN II-XII grossly intact with no noted focal neuro deficits Psych: Alert and oriented to person, place, time, and situation. Appropriate and pleasant affect. Assessment and Plan of Care: Preoperative clearance for laparoscopic cholecystectomy -NSQIP surgical risk calculator was completed showing patient at an above average risk for serious complications at 2.9% with average risk of 1.8%, above average risk of cardiac complications at 0.2% with average risk being 0.0%, and an above average risk of at 0.1% with average risk being 0.0%. -METS scor > 4. -Patient is at an above average risk for surgical intervention, however METS score is > 4 and further workup is unlikely to change pre or postoperative management. Patient has been medically optimized and from a medical perspective may proceed to surgery without further need for testing or intervention at this time pending final clearance from cardiology. Acute cholecystitis Symptomatic cholelithiasis Right upper quadrant pain, secondary to above -Continue IV antibiotics with Zosyn 3.375 g every 8 hours. -Gentle IV fluid hydration with 0.9% normal saline at 75 cc/h. -General surgery managing acute cholecystitis and plans to take patient for laparoscopic cholecystectomy tomorrow. -Continue symptomatic care and pain management. Insulin-dependent diabetes mellitus with hyperglycemia -Hold metformin, Trulicity, and Actos. Continue Farxiga 10 mg daily along with Levemir 55 units daily and patient placed on glycemic protocol with NovoLog sliding scale. CAD with history of nonischemic cardiomyopathy Hyperlipidemia -Continue daily medication regimen with atorvastatin 40 mg daily, Farxiga 10 mg daily, and may resume aspirin 81 mg daily postop day 1 following lap lisa. Iron deficiency anemia -Hemoglobin stable at 13.2. Patient to continue ferrous sulfate 325 mg daily. Data and imaging reviewed: -As stated above in HPI Thank you for allowing us to participate in the care of this pleasant patient. Do not hesitate to contact us with questions. Someone can be reached from the [facility] hospitalist group all hours of the day at [phone] or via perfect serve. Patient was seen independently by Nurse Practitioner. This document was prepared using iRule dictation software. Please allow for errors in textile engraver while rare they do occur. .Oj Hercules NP rendered care for this patient independently, reviewed the findings and plan as documented in the note above. I did not physically speak with or examine the patient on this date. Past Medical History Past Medical History: Asthma, Chest Pain / Angina, Diabetes Mellitus, Hypertension, Liver Disease Additional Past Medical History / Comment(s): HX OF HEPATITIS A @ 12 YRS OLD, ON AND OFF DIARRHEA. Bilateral shoulder, arm and hip., iron deficiency anemia. History of Any Multi-Drug Resistant Organisms: None Reported Past Surgical History: Section, Hysterectomy, Orthopedic Surgery Additional Past Surgical History / Comment(s): RT CARPAL TUNNEL, CYSTS AND TRIGGER FINGER RT & LT HANDS, CS X4., EGD Past Anesthesia/Blood Transfusion Reactions: No Reported Reaction, Motion Sickness Additional Past Anesthesia/Blood Transfusion Reaction / Comm: Niece passed and almost , not sure exactly what happened. Past Psychological History: No Psychological Hx Reported Smoking Status: Never smoker Past Alcohol Use History: None Reported Past Drug Use History: None Reported - Past Family History Sister(s) Family Medical History: Cancer Mother History Unknown: Yes Family Medical History: Deep Vein Thrombosis (DVT), Myocardial Infarction ([place]) Father History Unknown: Yes Additional Family Medical History / Comment(s): emphysema Medications and Allergies Home Medications Medication Instructions Recorded Confirmed Type Nitroglycerin Sl Tabs [Nitrostat] 0.4 mg SL Q5M PRN 04/11/14 05/30/24 History Acarbose 100 mg PO TID 07/12/15 05/30/24 History Gabapentin 400 mg PO TID 07/12/15 05/30/24 History Pantoprazole Sodium [Protonix] 40 mg PO DAILY 14 Days #14 tab 07/18/22 05/30/24 Rx Atorvastatin [Lipitor] 40 mg PO DAILY 06/15/23 05/30/24 History Dapagliflozin Propanediol [Farxiga] 10 mg PO DAILY 06/15/23 05/30/24 History Insulin Detemir [Levemir Flexpen] 55 units SQ DAILY 06/15/23 05/30/24 History Prevagen Extra Strength 1 tab PO DAILY 06/15/23 05/30/24 History metFORMIN HCL 1,000 mg PO BID 06/15/23 05/30/24 History Albuterol Sulfate [Albuterol 2 puff PO RT-Q4H PRN 05/30/24 05/30/24 History Sulfate Hfa] Aspirin EC [Ecotrin Low Dose] 81 mg PO DAILY 05/30/24 05/30/24 History DULoxetine HCL [Cymbalta] 30 mg PO DAILY 05/30/24 05/30/24 History Dulaglutide [Trulicity] 3 mg SQ WEEKLY 05/30/24 05/30/24 History Ferrous Sulfate [Feosol] 325 mg PO DAILY 05/30/24 05/30/24 History Pioglitazone [Actos] 15 mg PO DAILY 05/30/24 05/30/24 History Allergies Allergy/AdvReac Type Severity Reaction Status Date / Time No Known Allergies Allergy Verified 05/30/24 10:08 Physical Exam Vitals: Vital Signs Temp Pulse Pulse Resp BP BP Pulse Ox 05/30/24 07:00 97.7 F 115 H 15 137/81 96 05/30/24 03:57 91 L 05/30/24 03:56 97.8 F 110 H 18 135/87 88 L 05/30/24 02:22 97.8 F 94 16 151/86 92 L 05/29/24 23:24 97.4 F L 69 18 150/81 95 Intake and Output 05/29/24 05/30/24 05/30/24 22:59 06:59 14:59 Other: Weight 63.503 kg Results CBC & Chem 7: 05/31/24 04:47 05/31/24 04:47 Labs: Abnormal Lab Results - Last 24 Hours (Table) 05/29/24 05/30/24 05/30/24 Range/Units 23:42 04:10 07:49 RDW 16.8 H (11.5-15.5) % Plt Count 120 L (150-450) k/uL BUN 18 H (7-17) mg/dL Glucose 125 H (74-99) mg/dL POC Glucose (mg/dL) 116 H (70-110) mg/dL AST 41 H (14-36) U/L Urine Appearance (Clear) Urine Glucose (UA) (Negative) Ur Leukocyte Esterase (Negative) Urine WBC (0-5) /hpf Urine Bacteria (None) /hpf Urine Mucus (None) /hpf 07/30/24 07/30/24 Range/Units 08:38 12:13 RDW (11.5-15.5) % Plt Count (150-450) k/uL BUN (7-17) mg/dL Glucose (74-99) mg/dL POC Glucose (mg/dL) 148 H (70-110) mg/dL AST (14-36) U/L Urine Appearance Cloudy H (Clear) Urine Glucose (UA) 4+ H (Negative) Ur Leukocyte Esterase Trace H (Negative) Urine WBC 7 H (0-5) /hpf Urine Bacteria Rare H (None) /hpf Urine Mucus Rare H (None) /hpf
[2024-05-30] MEDS: GABAPENTIN 400 MG CAP PO SCH (15:32)
[2024-05-30 16:55] LABS: Glucose,Whole Blood 229 mg/dL (70-110)
[2024-05-30] MEDS: INSULIN ASPART (NovoLOG) 100 UNIT/ML VIAL SQ SCH (17:36)
[2024-05-30 21:04] LABS: Glucose,Whole Blood 156 mg/dL (70-110)
[2024-05-31 06:09] LABS: Glucose,Whole Blood 124 mg/dL (70-110)
[2024-05-31] MEDS: INSULIN DETEMIR (LEVEMIR) 100 UNIT/ML SYR SQ SCH (06:34)
[2024-05-31] MEDS: PANTOPRAZOLE 40 MG TABLET PO SCH (06:34)
[2024-05-31 08:58] LABS: ALT 20 U/L (8-44); AST 23 U/L (13-35); Albumin 3.6 g/dL (3.8-4.9); Albumin/Globulin Ratio 1.64 Ratio (1.60-3.17); Alkaline Phosphatase 77 U/L (41-126); BUN/Creat Ratio 15.75 Ratio (12.00-20.00); Blood Urea Nitrogen 12.6 mg/dL (9.0-27.0); Calcium 8.6 mg/dL (8.7-10.3); Carbon Dioxide 28.8 mmol/L (21.6-31.8); Chloride 106 mmol/L (96-109); Globulin 2.2 g/dL (1.6-3.3); Glucose 132 mg/dL (70-110); Magnesium 1.9 mg/dL (1.5-2.4); Potassium 3.9 mmol/L (3.5-5.5); Sodium 144 mmol/L (135-145); Total Bilirubin 0.7 mg/dL (0.3-1.2); Total Protein 5.8 g/dL (6.2-8.2)
[2024-05-31] MEDS ORDERED: ASPIRIN 81 MG PO SCH (09:00)
[2024-05-31] MEDS: DAPAGLIFLOZIN PROPANEDIOL 10 MG TABLET PO SCH (09:18)
[2024-05-31] MEDS: FERROUS SULFATE 325 MG TAB PO SCH (09:18)
[2024-05-31] MEDS: ATORVASTATIN 40 MG TAB PO SCH (09:18)
[2024-05-31] MEDS: DULoxetine HCL 30 MG CAPSULE.DR PO SCH (09:18)
[2024-05-31 09:37] LABS: HCT 35.1 % (37.2-46.3); HGB 10.5 g/dL (12.0-15.0); MCH 27.2 pg (27.0-32.0); MCHC 29.9 g/dL (32.0-37.0); MCV 90.9 FL (80.0-97.0); NRBC Per 100 WBC 0 X 10*3/uL (0.00-0.01); Platelet Count 72 X 10*3/uL (140-440); RBC 3.86 X 10*6/uL (4.10-5.20); RDW 17.2 % (11.5-14.5); WBC 3.14 X 10*3/uL (4.50-10.00)
--- NOTE | 2024-05-31 09:50 | P.PN ---
Subjective Progress Note Date: 05/31/24 Hospital Course: Patient is a very pleasant 73-year-old female with a past medical history of CAD, nonischemic cardiomyopathy, hyperlipidemia, iron deficiency anemia, and insulin-dependent diabetes mellitus. She presented to the emergency department on 05/29/2024 with a chief complaint of right upper quadrant abdominal pain. Patient reports the symptoms began approximately 2 days ago and worsen after eating. Reports nausea, but denies any episodes of vomiting, denies fevers, chills, diaphoresis, chest pain, palpitations, shortness of breath, or experiencing any difficulties with or changes in her urinary or bowel function. Upon arrival to our facility, patient underwent evaluation in the emergency department. Vital signs upon arrival show blood pressure 150/81, heart rate 69, respiratory rate 18, temp 97.4 F, and SpO2 of 95% on room air. EKG showing normal sinus rhythm at 77 bpm with left ventricular hypertrophy and T wave inversion in lateral lead aVL, otherwise no significant T wave or ST abnormalities showing no signs of acute ischemia upon personal review and interpretation. Labs were completed and reviewed. CBC showing mild thrombocytopenia with platelet count of 120 otherwise normal findings. BMP showing mild prerenal azotemia with BUN of 18 and blood glucose of 125. Liver profile showing elevated AST of 41 otherwise normal findings. Lactic acid was 1.6. Troponin was negative at less than 0.012. Urinalysis negative for infection. Ultrasound right upper quadrant showing stone at the gallbladder nec k with gallbladder distention. Patient was admitted under general surgery team and we were consulted for medical management throughout hospitalization. Physical exam: Patient was seen and fully evaluated at bedside this morning. She reports currently right upper quadrant pain is controlled and denies having any complaints, concerns, or needs. She is awaiting to go down for a laparoscopic cholecystic ectomy scheduled later this morning. Patient denies having any headache, lightheadedness, dizziness, chest pain, palpitations, shortness of breath, nausea, vomiting, or any other complaints at this time. Vital signs reviewed and stable. General: Nontoxic, no distress and appears stated age. Derm: Skin warm and dry, normal coloration for ethnicity. Head: Atraumatic, normocephalic and symmetric. Eyes: EOMs intact, no lid lag, and anicteric sclera Mouth: no lip lesions, mucus membranes moist Cardiovascular: regular rate and rhythm with normal S1S2, systolic murmur, positive posterior tibial pulses bilaterally, and cap refill < 2 seconds. Lungs: Respirations even, regular, and unlabored on room air. Lungs CTA bila terally, no rhonchi, no rales, no wheezing, and no accessory muscle usage. Abdominal: soft, mild tenderness to RUQ, no guarding, no appreciable organomegaly Ext: ROM intact. No gross muscle atrophy, no edema, no contractures Neuro: Speech clear, face symmetrical and CN II-XII grossly intact with no noted focal neuro deficits Psych: Alert and oriented to person, place, time, and situation. Appropriate and pleasant affect. Assessment and Plan of Care: Preoperative clearance for laparoscopic cholecystectomy -NSQIP surgical risk calculator was completed showing patient at an above average risk for serious complications at 2.9% with average risk of 1.8%, above average risk of cardiac complications at 0.2% with average risk being 0.0%, and an above average risk of at 0.1% with average risk being 0.0%. -METS scor > 4. -Patient is at an above average risk for surgical intervention, however METS score is > 4 and further workup is unlikely to change pre or postoperative management. Patient has been medically optimized and from a medical perspective may proceed to surgery without further need for testing or intervention at this time pending final clearance from cardiology. Acute cholecystitis Symptomatic cholelithiasis Right upper quadrant pain, secondary to above -Continue IV antibiotics with Zosyn 3.375 g every 8 hours. -Gentle IV fluid hydration with 0.9% normal saline at 75 cc/h. -General surgery managing acute cholecystitis and plans to take patient for laparoscopic cholecystectomy later today. -Continue symptomatic care and pain management. Insulin-dependent diabetes mellitus with hyperglycemia -Hold metformin, Trulicity, and Actos. Continue Farxiga 10 mg daily along with Levemir 55 units daily and patient placed on glycemic protocol with NovoLog sliding scale. CAD with history of hx of nonischemic cardiomyopathy, now preserved EF of 50% Hyperlipidemia -Per cardiology, no need to repeat echocardiogram. Patient with previous nonischemic cardiomyopathy with recovered EF. Most recent EF 50% from March 2023. -Continue daily medication regimen with atorvastatin 40 mg daily, Farxiga 10 mg daily, and may resume aspirin 81 mg daily postop day 1 following lap lisa. Pancytopenia Iron deficiency anemia -CBC showing WBC count of 3.14, hemoglobin 10.5, and platelet count of 72. -Patient to continue ferrous sulfate 325 mg daily. Data and imaging reviewed: -Morning labs completed and reviewed. CBC showing WBC count of 3.14, hemoglobin 10.5, and platelet count of 72. BMP unremarkable. Blood glucose 132. Liver profile unremarkable. Magnesium 1.9. -Vital signs reviewed. Blood pressure 123/67, heart rate 88, respiratory rate 13, temp 97.8 F, and SpO2 of 99% on 3 L. Thank you for allowing us to participate in the care of this pleasant patient. Do not hesitate to contact us with questions. Someone can be reached from the [facility] hospitalist group all hours of the day at [phone] or via [employer]. Patient was seen independently by Nurse Practitioner. This document was prepared using [employer] dictation software. Please allow for errors in hot dimpling machine operator while rare they do occur. .Oj Hercules NP rendered care for this patient independently, reviewed the findings and plan as documented in the note above. I did not physically speak with or examine the patient on this date. Objective - Vital Signs Vital signs: Vital Signs Temp 97.8 F 05/31/24 07:00 Pulse 88 05/31/24 07:00 Resp 13 05/31/24 07:00 BP 123/67 05/31/24 07:00 Pulse Ox 99 05/31/24 07:00 FiO2 Intake & Output 05/30/24 05/31/24 05/31/24 18:59 06:59 18:59 Other: Voiding Method Toilet # Voids 3 2 - Labs CBC & Chem 7: 05/31/24 04:47 05/31/24 04:47 Labs: Abnormal Lab Results - Last 24 Hours (Table) 05/30/24 05/30/24 05/30/24 Range/Units 08:38 12:13 16:53 POC Glucose (mg/dL) 148 H 229 H (70-110) mg/dL Urine Appearance Cloudy H (Clear) Urine Glucose (UA) 4+ H (Negative) Ur Leukocyte Esterase Trace H (Negative) Urine WBC 7 H (0-5) /hpf Urine Bacteria Rare H (None) /hpf Urine Mucus Rare H (None) /hpf 05/30/24 05/31/24 Range/Units 21:02 06:08 POC Glucose (mg/dL) 156 H 124 H (70-110) mg/dL Urine Appearance (Clear) Urine Glucose (UA) (Negative) Ur Leukocyte Esterase (Negative) Urine WBC (0-5) /hpf Urine Bacteria (None) /hpf Urine Mucus (None) /hpf
[2024-05-31] MEDS: IV FLUID CONTINUATION 1,000 ML IV ONE (09:58)
[2024-05-31] MEDS: LACTATED RINGERS 1,000 ML IV SCH (10:03)
[2024-05-31] MEDS: ONDANSETRON 4 MG/2 ML VIAL IVP PRN (10:19)
[2024-05-31 10:22] LABS: Glucose,Whole Blood 84 mg/dL (70-110)
[2024-05-31] MEDS ORDERED: MIDAZOLAM 2 MG/2 ML VIAL ONE (11:09)
[2024-05-31] MEDS ORDERED: PROPOFOL 10 MG/ML 20 ML VIAL IV ONE (11:09)
[2024-05-31] MEDS ORDERED: ceFAZolin 1 GM/50 ML BAG (PMX) ONE (11:09)
[2024-05-31] MEDS ORDERED: LIDOCAINE 1% INJ 10MG/ML (20 ML MDV) ONE (11:09)
[2024-05-31] MEDS ORDERED: SUGAMMADEX SODIUM 200 MG/2 ML SDV IV ONE (11:09)
[2024-05-31] MEDS ORDERED: fentaNYL (PF) 50 MCG/ML 2 ML AMP ONE (11:09)
[2024-05-31] MEDS ORDERED: ROCURONIUM 10 MG/ML (5 ML VIAL) IV ONE (11:09)
[2024-05-31] MEDS ORDERED: SUCCINYLCHOLINE CHLORIDE 200 MG/10 ML VIAL IV ONE (11:09)
[2024-05-31] MEDS: LIDOCAINE 1%-EPI 1:100,000 20 ML VIAL SQ ONE (11:33)
--- NOTE | 2024-05-31 12:17 | P.OP ---
Date of Procedure: 05/31/24 Preoperative Diagnosis: Cholecystitis Postoperative Diagnosis: Cholecystitis Cirrhotic liver Procedure(s) Performed: Laparoscopic cholecystectomy Anesthesia: BEVERLEY Surgeon: Geoff Ordaz Pathology: other (Gallbladder) Condition: stable Disposition: PACU Description of Procedure: The patient was placed on the operating table. The patient received a general endotracheal tube anesthesia. The patients abdomen was prepped and draped in the usual sterile fashion. Through an infraumbilical stab incision, the fascia of the anterior abdominal wall was grasped with a pair of Kochers and then the Veress needle was placed in the peritoneal cavity. Position of the Veress needle was confirmed with positive drop test. The abdomen was then insufflated. After adequate insufflation, the 10 mm trocar was placed in the peritoneal cavity. Following this the laparoscope was placed in the peritone al cavity. The patient was placed in the head-up, right side up position and then a 5 mm trocar was placed in the right lateral and right subcostal position under direct visualization. A 8 mm trocar was placed in the epigastric position. The gallbladder was grasped in the fundus and infundibulum. Traction on the gallbladder was placed in the lateral and the cephalad positions. The triangle of Calot was visualized.. The cystic duct was bluntly dissected until the union of the cystic duct and common bile duct was seen. A critical view of safety was achieved. The cystic duct was then divided and sealed with the Harmonic scissors. A PDS Endoloop was then placed throughout the cystic duct stump. The cystic artery divided and sealed with the Harmonic scissors. The gallbladder was then removed from the liver bed using Harmonic scissors. The gallbladder was then extracted through the epigastric port site. Operative field was checked for any bleeding spots and Harmonic scissors was used to coagulate the liver bed. There was some bleeding in the liver bed. This was controlled electrocautery. Due to the cirrhotic liver a MARILEE drain was placed in the gallbladder fossa and brought through the epigastric port site. The abdomen was irrigated. The trocars were removed. The skin was closed using interrupted 3-0 Vicryl suture. Dermabond dressing were applied. The patient tolerated the procedure well.
[2024-05-31] MEDS ORDERED: HYDROmorphone 1 MG/ML 1 ML SYRINGE IVP PRN (12:18)
[2024-05-31 13:30] LABS: Glucose,Whole Blood 84 mg/dL (70-110)
[2024-05-31] MEDS: HYDROmorphone 0.5 MG/0.5 ML SYRINGE IVP PRN (14:16)
[2024-05-31 17:35] LABS: Glucose,Whole Blood 68 mg/dL (70-110)
[2024-05-31 18:10] LABS: Glucose,Whole Blood 81 mg/dL (70-110)
[2024-05-31 20:32] LABS: Glucose,Whole Blood 125 mg/dL (70-110)
[2024-05-31 21:39] LABS: Glucose,Whole Blood 106 mg/dL (70-110)
--- NOTE | 2024-06-01 01:10 | P.EN ---
At 2138 called to bedside by patient's RN concern for upper extremity weakness, tremors, and right-sided facial droop. On chart review, patient is status post cholecystectomy today and had last dilaudid dose at 5pm PRN for pain. At bedside, patient was noted to to be A and O x 2 (cannot recall year), appears drowsy but responsive to all questions, 5 out of 5 strength in all extremities, no tremors were noted, and no facial droop was noted. Vitals were unremarkable. On assessment, patient seems to be in delirium. Plan to monitor with neurochecks every hour.
[2024-06-01 01:47] LABS: Glucose,Whole Blood 102 mg/dL (70-110)
[2024-06-01] MEDS: ACETAMINOPHEN TAB 325 MG TAB PO STA (04:36)
[2024-06-01 05:55] LABS: Glucose,Whole Blood 104 mg/dL (70-110)
[2024-06-01] MEDS: ASPIRIN 81 MG PO SCH (09:24)
[2024-06-01 10:44] LABS: HCT 32.5 % (37.2-46.3); HGB 9.9 g/dL (12.0-15.0); Immature Platelet Fraction 2.7 % (1.1-6.1); MCH 27.9 pg (27.0-32.0); MCHC 30.5 g/dL (32.0-37.0); MCV 91.5 FL (80.0-97.0); NRBC Per 100 WBC 0 X 10*3/uL (0.00-0.01); Platelet Count 74 X 10*3/uL (140-440); RBC 3.55 X 10*6/uL (4.10-5.20); WBC 4.59 X 10*3/uL (4.50-10.00)
[2024-06-01 11:12] LABS: Magnesium 1.9 mg/dL (1.5-2.4)
[2024-06-01 11:22] LABS: ALT 27 U/L (8-44); AST 49 U/L (13-35); Albumin 3.3 g/dL (3.8-4.9); Albumin/Globulin Ratio 1.57 Ratio (1.60-3.17); Alkaline Phosphatase 72 U/L (41-126); BUN/Creat Ratio 14.25 Ratio (12.00-20.00); Blood Urea Nitrogen 11.4 mg/dL (9.0-27.0); Calcium 8.2 mg/dL (8.7-10.3); Carbon Dioxide 26.2 mmol/L (21.6-31.8); Chloride 105 mmol/L (96-109); Globulin 2.1 g/dL (1.6-3.3); Glucose 101 mg/dL (70-110); Potassium 3.5 mmol/L (3.5-5.5); Sodium 142 mmol/L (135-145); Total Bilirubin 0.9 mg/dL (0.3-1.2); Total Protein 5.4 g/dL (6.2-8.2)
[2024-06-01 12:06] LABS: Glucose,Whole Blood 161 mg/dL (70-110)
--- NOTE | 2024-06-01 13:44 | P.PN ---
Subjective Progress Note Date: 06/01/24 Hospital Course: Patient is a very pleasant 73-year-old female with a past medical history of CAD, nonischemic cardiomyopathy, hyperlipidemia, iron deficiency anemia, and insulin-dependent diabetes mellitus. She presented to the emergency department on 05/29/2024 with a chief complaint of right upper quadrant abdominal pain. Patient reports the symptoms began approximately 2 days ago and worsen after eating. Reports nausea, but denies any episodes of vomiting, denies fevers, chills, diaphoresis, chest pain, palpitations, shortness of breath, or experiencing any difficulties with or changes in her urinary or bowel function. Upon arrival to our facility, patient underwent evaluation in the emergency department. Vital signs upon arrival show blood pressure 150/81, heart rate 69, respiratory rate 18, temp 97.4 F, and SpO2 of 95% on room air. EKG showing normal sinus rhythm at 77 bpm with left ventricular hypertrophy and T wave inversion in lateral lead aVL, otherwise no significant T wave or ST abnormalities showing no signs of acute ischemia upon personal review and interpretation. Labs were completed and reviewed. CBC showing mild thrombocytopenia with platelet count of 120 otherwise normal findings. BMP showing mild prerenal azotemia with BUN of 18 and blood glucose of 125. Liver profile showing elevated AST of 41 otherwise normal findings. Lactic acid was 1.6. Troponin was negative at less than 0.012. Urinalysis negative for infection. Ultrasound right upper quadrant showing stone at the gallbladder nec k with gallbladder distention. Patient was admitted under general surgery team and we were consulted for medical management throughout hospitalization. Physical exam: Patient was seen and fully evaluated at bedside this morning. She is currently alert and oriented to person, place, and situation. Patient had episode of delirium overnight. She is currently confused to time stating it is 1994 otherwise answering all other questions appropriately. Patient knows that she is in the hospital and had her gallbladder removed. Patient reports diffuse abdominal distention and discomfort but denies actual pain at this time. She denies having any nausea or vomiting and is currently tolerating oral intake. Patient denies having any dizziness, lightheadedness, chest pain, palpitations, shortness of breath or experiencing any numbness/tingling/weakness in her extremities. Vital signs reviewed and stable. General: Nontoxic, no distress and appears stated age. Derm: Skin warm and dry, normal coloration for ethnicity. Head: Atraumatic, normocephalic and symmetric. Eyes: EOMs intact, no lid lag, and anicteric sclera Mouth: no lip lesions, mucus membranes moist Cardiovascular: regular rate and rhythm with normal S1S2, systolic murmur, positive posterior tibial pulses bilaterally, and cap refill < 2 seconds. Lungs: Respirations even, regular, and unlabored on room air. Lungs CTA bilaterally, no rhonchi, no rales, no wheezing, and no accessory muscle usage. Abdominal: soft, mild tenderness to RUQ, no guarding, no appreciable organomegaly Ext: ROM intact. No gross muscle atrophy, no edema, no contractures Neuro: Speech clear, face symmetrical and CN II-XII grossly intact with no noted focal neuro deficits Psych: Alert and oriented to person, place, time, and situation. Appropriate and pleasant affect. Assessment and Plan of Care: Postoperative delirium -Secondary to anesthesia and pain medications patient received. Symptoms significantly improved and patient currently alert to person, place, and situation and only confused to time. -Continue safe and supportive care with assistance and redirection as needed. -Fall precautions in place. Acute cholecystitis Symptomatic cholelithiasis Right upper quadrant pain, secondary to above -Continue IV antibiotics with Zosyn 3.375 g every 8 hours. -Patient tolerating oral intake, IV fluids discontinued at this time. -General surgery following, Dr. Ordaz took patient for laparoscopic c holecystectomy on 05/31/2024. -Continue symptomatic care and pain management. Insulin-dependent diabetes mellitus with hyperglycemia -Hold metformin, Trulicity, and Actos. Continue Farxiga 10 mg daily along with Levemir 55 units daily and patient placed on glycemic protocol with NovoLog sliding scale. CAD with history of hx of nonischemic cardiomyopathy, now preserved EF of 50% Hyperlipidemia -Per cardiology, no need to repeat echocardiogram. Patient with previous nonischemic cardiomyopathy with recovered EF. Most recent EF 50% from March 2023. -Continue daily medication regimen with aspirin 81 mg daily, atorvastatin 40 mg daily, and Farxiga 10 mg daily. Pancytopenia Iron deficiency anemia -CBC initially showing WBC count of 3.14, hemoglobin 10.5, and platelet count of 72. Now showing bicytopenia with hemoglobin 9.9 and platelet count of 74. -Patient to continue ferrous sulfate 325 mg daily. Data and imaging reviewed: -Morning labs completed and reviewed. CBC showing cytopenia with hemoglobin of 9.9 and platelet count of 74. BMP unremarkable. Blood glucose 101. Magnesium 1.9. Liver profile showing slightly elevated AST of 49 and hypoalbuminemia with albumin of 3.3. -Vital signs reviewed. Blood pressure 112/64, heart rate 85, respiratory rate 15, temp 98.2 F, and SpO2 of 97% on 2 L. Thank you for allowing us to participate in the care of this pleasant patient. Do not hesitate to contact us with questions. Someone can be reached from the [facility] hospitalist group all hours of the day at [phone] or via [employer]. Patient was seen independently by Nurse Practitioner. This document was prepared using [employer] dictation software. Please allow for errors in putty glazer while rare they do occur. .Oj Hercules NP rendered care for this patient independently, reviewed the findings and plan as documented in the note above. I did not physically speak with or examine the patient on this date Objective - Vital Signs Vital signs: Vital Signs Temp 98.2 F 06/01/24 07:25 Pulse 85 06/01/24 07:25 Resp 15 06/01/24 07:25 BP 112/64 06/01/24 07:25 Pulse Ox 97 06/01/24 07:25 FiO2 Intake & Output 05/31/24 06/01/24 06/01/24 18:59 06:59 18:59 Intake Total 936 960 Output Total 185 2100 Balance 751 -1140 Intake: IV 700 Oral 236 960 Output: Drainage 110 100 Upper Anterior Abdomen 110 100 Urine 2000 Straight 1000 Estimated Blood Loss 75 Other: # Voids 1 1 - Labs CBC & Chem 7: 06/01/24 05:50 06/01/24 05:50 Labs: Abnormal Lab Results - Last 24 Hours (Table) 05/31/24 05/31/24 05/31/24 Range/Units 04:47 04:47 17:31 WBC 3.14 L (4.50-10.00) X 10*3/uL RBC 3.86 L (4.10-5.20) X 10*6/uL Hgb 10.5 L (12.0-15.0) g/dL Hct 35.1 L (37.2-46.3) % MCHC 29.9 L (32.0-37.0) g/dL RDW 17.2 H (11.5-14.5) % Plt Count 72 L (140-440) X 10*3/uL Glucose 132 H (70-110) mg/dL POC Glucose (mg/dL) 68 L (70-110) mg/dL Calcium 8.6 L (8.7-10.3) mg/dL Total Protein 5.8 L (6.2-8.2) g/dL Albumin 3.6 L (3.8-4.9) g/dL 05/31/ Range/Units 20:31 WBC (4.50-10.00) X 10*3/uL RBC (4.10-5.20) X 10*6/uL Hgb (12.0-15.0) g/dL Hct (37.2-46.3) % MCHC (32.0-37.0) g/dL RDW (11.5-14.5) % Plt Count (140-440) X 10*3/uL Glucose (70-110) mg/dL POC Glucose (mg/dL) 125 H (70-110) mg/dL Calcium (8.7-10.3) mg/dL Total Protein (6.2-8.2) g/dL Albumin (3.8-4.9) g/dL
--- NOTE | 2024-06-01 16:06 | P.PN ---
Subjective Progress Note Date: 06/01/24 CHIEF COMPLAINT: Cholecystitis HISTORY OF PRESENT ILLNESS: Patient postop day #1 status post laparoscopic cholecystectomy. Op note does report bleeding in liver bed controlled with electrocautery. Patient reports her pain is controlled. She denies any flatus. Denies any nausea or vomiting. She has not really been out of bed this morning. She had urinary retention and required to be straight cathed x 1. During the night patient had episode of delirium and was evaluated by medicine service. Per nursing staff patient is becoming more awake and alert throughout the day. Afebrile. Mild tachycardia. WBC 4.59 Hgb 9.9 platelets 74. MARILEE drain 60 mL serosanguineous output PHYSICAL EXAM: VITAL SIGNS: Reviewed. GENERAL: Well-developed in no acute distress. ABDOMEN: Soft. Mildly distended. Incision sites clean dry and intact NEUROLOGIC: Awake able to answer questions ASSESSMENT: 1. Acute cholecystitis status post laparoscopic cholecystectomy 2. Cirrhotic liver PLAN: -Encourage patient to increase activity level. PT consulted -Continue pain management. Tylenol and/or [place] added for oral pain medication. -Encourage patient to use incentive spirometer -GI prophylaxis Protonix and SCDs for DVT prophylaxis Physician Book Packer note has been reviewed by physician. Signing provider agrees with the documented findings, assessment, and plan of care. Objective - Vital Signs Vital signs: Vital Signs Temp 98.0 F 06/01/24 14:20 Pulse 107 H 06/01/24 14:20 Resp 16 06/01/24 14:20 BP 129/72 06/01/24 14:20 Pulse Ox 90 L 06/01/24 14:20 FiO2 Intake & Output 05/31/24 06/01/24 06/01/24 18:59 06:59 18:59 Intake Total 936 960 118 Output Total 185 2100 1275 Balance 751 -1140 -1157 Intake: IV 700 Oral 236 960 118 Output: Drainage 110 100 60 Upper Anterior Abdomen 110 100 60 Urine 2000 700 Straight 1000 700 Post Void Residual 515 Estimated Blood Loss 75 Other: # Voids 1 1 - Labs CBC & Chem 7: 06/01/24 05:50 06/01/24 05:50 Labs: Abnormal Lab Results - Last 24 Hours (Table) 05/31/24 05/31/24 06/01/24 Range/Units 17:31 20:31 05:50 RBC 3.55 L (4.10-5.20) X 10*6/uL Hgb 9.9 L (12.0-15.0) g/dL Hct 32.5 L (37.2-46.3) % MCHC 30.5 L (32.0-37.0) g/dL RDW 17.0 H (11.5-14.5) % Plt Count 74 L (140-440) X 10*3/uL POC Glucose (mg/dL) 68 L 125 H (70-110) mg/dL Calcium (8.7-10.3) mg/dL AST (13-35) U/L Total Protein (6.2-8.2) g/dL Albumin (3.8-4.9) g/dL Albumin/Globulin Ratio (1.60-3.17) Ratio 06/01/24 06/01/24 Range/Units 05:50 12:04 RBC (4.10-5.20) X 10*6/uL Hgb (12.0-15.0) g/dL Hct (37.2-46.3) % MCHC (32.0-37.0) g/dL RDW (11.5-14.5) % Plt Count (140-440) X 10*3/uL POC Glucose (mg/dL) 161 H (70-110) mg/dL Calcium 8.2 L (8.7-10.3) mg/dL AST 49 H (13-35) U/L Total Protein 5.4 L (6.2-8.2) g/dL Albumin 3.3 L (3.8-4.9) g/dL Albumin/Globulin Ratio 1.57 L (1.60-3.17) Ratio
[2024-06-01] MEDS: HYDROcodone/APAP 5-325MG 1 EACH TAB PO PRN (16:17)
[2024-06-01 17:07] LABS: Glucose,Whole Blood 197 mg/dL (70-110)
[2024-06-01 20:30] LABS: Glucose,Whole Blood 225 mg/dL (70-110)
--- NOTE | 2024-06-02 05:00 | P.EN ---
0425 Received RN communication that patient had unwitnessed fall. Patient does not recall how she fell, denies any pain, weakness, dizziness or LOC. Vital signs were reviewed and unremarkable. On assessment, patient is A&Ox3, cooperative with appropriate affect. No focal neurologic deficits, 5/5 muscle strength in all extremities. Ordered CT brain w/o contrast and bilateral hip xray, and to continue fall precautions.
[2024-06-02 06:11] LABS: Glucose,Whole Blood 133 mg/dL (70-110)
--- NOTE | 2024-06-02 07:43 | CT ---
EXAMINATION TYPE: CT brain wo con DATE OF EXAM: 06/02/2024 COMPARISON: 07/12/2015 HISTORY: unwitnessed fall-patient states nothing below her head hurts CT DLP: 1154.[address] of the brain was performed. The ventricles, basal cisterns and sulci overlying the cerebral convexities demonstrate mild enlargem ent. There is no evidence for intracranial hemorrhage or sulcal effacement. There is decreased attenuation about the periventricular white matter and deep white matter of both c erebral hemispheres, compatible with chronic small vessel ischemia. Differential diagnosis does inclu de demyelination. No mass effects are seen.No midline shift. Osseous calvarium is intact. If symptoms persist consider MRI. IMPRESSION: 1. Age related atrophic and chronic small vessel ischemic change without acute intracranial process s een at this time.
--- NOTE | 2024-06-02 08:20 | XR ---
EXAMINATION TYPE: XR pelvis AP view DATE OF EXAM: 06/02/2024 5:43 AM CLINICAL INDICATION:Female, 73 years old with history of unwitnessed fall; COMPARISON: None TECHNIQUE: XR pelvis AP view, examined in a single projection. FINDINGS: There is no evidence of fracture or dislocation. There is no soft tissue abnormality. No a bnormal calcifications are present. The spine appears intact. The hips appear intact. Osteophyte form ation of the superior acetabulum bilaterally with mild joint space narrowing. IMPRESSION: 1. No acute osseous pathology. 2. Mild degeneration changes of the hip.
[2024-06-02] MEDS: ACETAMINOPHEN TAB 325 MG TAB PO PRN (09:27)
--- NOTE | 2024-06-02 11:11 | P.PN ---
Subjective Progress Note Date: 06/02/24 Hospital Course: Patient is a very pleasant 73-year-old female with a past medical history of CAD, nonischemic cardiomyopathy, hyperlipidemia, iron deficiency anemia, and insulin-dependent diabetes mellitus. She presented to the emergency department on 05/29/2024 with a chief complaint of right upper quadrant abdominal pain. Patient reports the symptoms began approximately 2 days ago and worsen after eating. Reports nausea, but denies any episodes of vomiting, denies fevers, chills, diaphoresis, chest pain, palpitations, shortness of breath, or experiencing any difficulties with or changes in her urinary or bowel function. Upon arrival to our facility, patient underwent evaluation in the emergency department. Vital signs upon arrival show blood pressure 150/81, heart rate 69, respiratory rate 18, temp 97.4 F, and SpO2 of 95% on room air. EKG showing normal sinus rhythm at 77 bpm with left ventricular hypertrophy and T wave inversion in lateral lead aVL, otherwise no significant T wave or ST abnormalities showing no signs of acute ischemia upon personal review and interpretation. Labs were completed and reviewed. CBC showing mild thrombocytopenia with platelet count of 120 otherwise normal findings. BMP showing mild prerenal azotemia with BUN of 18 and blood glucose of 125. Liver profile showing elevated AST of 41 otherwise normal findings. Lactic acid was 1.6. Troponin was negative at less than 0.012. Urinalysis negative for infection. Ultrasound right upper quadrant showing stone at the gallbladder nec k with gallbladder distention. Patient was admitted under general surgery team and we were consulted for medical management throughout hospitalization. Physical exam: Patient was seen and fully evaluated at bedside this morning. She is currently alert and oriented to person, place, and situation. Patient had fall overnight currently denies having any injuries from fall but does report diffuse abdominal tenderness mostly to areas of laparoscopic incision sites. Vital signs reviewed and stable. General: Nontoxic, no distress and appears stated age. Derm: Skin warm and dry, normal coloration for ethnicity. Head: Atraumatic, normocephalic and symmetric. Eyes: EOMs intact, no lid lag, and anicteric sclera Mouth: no lip lesions, mucus membranes moist Cardiovascular: regular rate and rhythm with normal S1S2, systolic murmur, positive posterior tibial pulses bilaterally, and cap refill < 2 seconds. Lungs: Respirations even, regular, and unlabored on room air. Lungs CTA bilaterally, no rhonchi, no rales, no wheezing, and no accessory muscle usage. Abdominal: soft, mild tenderness to RUQ, no guarding, no appreciable organomegaly. Laparoscopic incisions well-approximated, mild bruising no surrounding erythema. Ext: ROM intact. No gross muscle atrophy, no edema, no contractures Neuro: Speech clear, face symmetrical and CN II-XII grossly intact with no noted focal neuro deficits Psych: Alert and oriented to person, place, time, and situation. Appropriate and pleasant affect. Assessment and Plan of Care: Postoperative delirium -Secondary to anesthesia and pain medications patient received. Symptoms significantly improved and patient currently alert to person, place, and situat ion and only confused to time. -Continue safe and supportive care with assistance and redirection as needed. -Fall precautions in place. Unwitnessed fall during hospitalization -Patient denies having loss of consciousness and denies any injuries or complaints at this time. -CT head was completed showing age-related atrophic and chronic small vessel ischemic changes but negative for acute intracranial process. - Acute cholecystitis Symptomatic cholelithiasis Right upper quadrant pain, secondary to above -Continue IV antibiotics with Zosyn 3.375 g every 8 hours. -Patient tolerating oral intake, IV fluids discontinued at this time. -General surgery following, Dr. Ordaz took patient for laparoscopic cholecystectomy on 05/31/2024. -Continue symptomatic care and pain management. Insulin-dependent diabetes mellitus with hyperglycemia -Hold metformin, Trulicity, and Actos. Continue Farxiga 10 mg daily along with Levemir 55 units daily and patient placed on glycemic protocol with NovoLog sliding scale. CAD with history of hx of nonischemic cardiomyopathy, now preserved EF of 50% Hyperlipidemia -Per cardiology, no need to repeat echocardiogram. Patient with previous nonischemic cardiomyopathy with recovered EF. Most recent EF 50% from March 2023. -Continue daily medication regimen with aspirin 81 mg daily, atorvastatin 40 mg daily, and Farxiga 10 mg daily. Pancytopenia Iron deficiency anemia -CBC initially showing WBC count of 3.14, hemoglobin 10.5, and platelet count of 72. Now showing bicytopenia with hemoglobin 9.9 and platelet count of 74. -Patient to continue ferrous sulfate 325 mg daily. Data and imaging reviewed: -New labs this morning. Hemoglobin and platelet count stable with hemoglobin of 9.9, platelet count of 74. BMP was unremarkable. -Vital signs reviewed. Blood pressure 113/64, heart rate 95, respiratory rate 16, temp 98.3 F, and SpO2 of 99% on 2 L. Thank you for allowing us to participate in the care of this pleasant patient. Do not hesitate to contact us with questions. Someone can be reached from the [facility] [place] hospitalist group all hours of the day at [phone] or via perfect serve. Patient was seen independently by Nurse Practitioner. This document was prepared using [employer] dictation software. Please allow for errors in professor of industrial technology while rare they do occur. .Oj Hercules NP rendered care for this patient independently, reviewed the findings and plan as documented in the note above. I did not physically speak with or examine the patient on this date. Objective - Vital Signs Vital signs: Vital Signs Temp 98.6 F 06/02/24 03:05 Pulse 104 H 06/02/24 03:05 Resp 22 06/02/24 03:05 BP 144/71 06/02/24 03:05 Pulse Ox 92 L 06/02/24 03:05 FiO2 Intake & Output 06/01/24 06/02/24 06/02/24 18:59 06:59 18:59 Intake Total 236 240 Output Total 1470 40 Balance -1234 200 Intake: Oral 236 240 Output: Drainage 140 40 Upper Anterior Abdomen 140 40 Urine 700 Straight 700 Post Void Residual 630 Other: Voiding Method Toilet Toilet # Voids 1 2 - Labs CBC & Chem 7: 06/02/24 06:14 06/01/24 05:50 Labs: Abnormal Lab Results - Last 24 Hours (Table) 06/01/24 06/01/24 06/01/24 Range/Units 05:50 05:50 12:04 RBC 3.55 L (4.10-5.20) X 10*6/uL Hgb 9.9 L (12.0-15.0) g/dL Hct 32.5 L (37.2-46.3) % MCHC 30.5 L (32.0-37.0) g/dL RDW 17.0 H (11.5-14.5) % Plt Count 74 L (140-440) X 10*3/uL POC Glucose (mg/dL) 161 H (70-110) mg/dL Calcium 8.2 L (8.7-10.3) mg/dL AST 49 H (13-35) U/L Total Protein 5.4 L (6.2-8.2) g/dL Albumin 3.3 L (3.8-4.9) g/dL Albumin/Globulin Ratio 1.57 L (1.60-3.17) Ratio 06/01/24 06/01/24 06/02/24 Range/Units 17:05 20:29 06:09 RBC (4.10-5.20) X 10*6/uL Hgb (12.0-15.0) g/dL Hct (37.2-46.3) % MCHC (32.0-37.0) g/dL RDW (11.5-14.5) % Plt Count (140-440) X 10*3/uL POC Glucose (mg/dL) 197 H 225 H 133 H (70-110) mg/dL Calcium (8.7-10.3) mg/dL AST (13-35) U/L Total Protein (6.2-8.2) g/dL Albumin (3.8-4.9) g/dL Albumin/Globulin Ratio (1.60-3.17) Ratio
--- NOTE | 2024-06-02 12:25 | P.PN ---
Subjective Progress Note Date: 06/02/24 Principal diagnosis: Cholecystitis Patient apparently fell last night. So she fell gently onto her side. She said her surgical site incisions are more uncomfortable today. MARILEE mostly sanguinous. No bilious fluid noted. No labs from today. Vital signs stable. Objective - Vital Signs Vital signs: Vital Signs Temp 98.3 F 06/02/24 07:30 Pulse 95 06/02/24 07:30 Resp 16 06/02/24 07:30 BP 113/64 06/02/24 07:30 Pulse Ox 99 06/02/24 07:30 FiO2 Intake & Output 06/01/24 06/02/24 06/02/24 18:59 06:59 18:59 Intake Total 236 240 200 Output Total 1470 40 30 Balance -1234 200 170 Intake: Oral 236 240 200 Output: Drainage 140 40 30 Upper Anterior Abdomen 140 40 30 Urine 700 Straight 700 Post Void Residual 630 Other: Voiding Method Toilet Toilet Toilet # Voids 1 2 1 - Exam Abdomen: Soft, mild tenderness at incision sites, incisions clean and dry, MARILEE in place - Labs CBC & Chem 7: 06/01/24 05:50 06/01/24 05:50 Labs: Abnormal Lab Results - Last 24 Hours (Table) 06/01/24 06/01/24 06/02/24 Range/Units 17:05 20:29 06:09 POC Glucose (mg/dL) 197 H 225 H 133 H (70-110) mg/dL Assessment and Plan (1) Abdominal pain Narrative/Plan: 73-year-old female postcholecystectomy. Keep MARILEE drain in place. Repeat labs tomorrow. Patient states she is not ready to go home today which after her fall last night I am comfortable watching her for now. Continue low-fat diet. Current Visit: Yes Status: Acute Code(s): R10.9 - UNSPECIFIED ABDOMINAL PAIN SNOMED Code(s): 52607179
[2024-06-02 12:26] LABS: Glucose,Whole Blood 197 mg/dL (70-110)
[2024-06-02 13:19] LABS: HCT 32.4 % (37.2-46.3); HGB 9.9 g/dL (12.0-15.0); Immature Platelet Fraction 2.9 % (1.1-6.1); MCH 27.8 pg (27.0-32.0); MCHC 30.6 g/dL (32.0-37.0); Mean Platelet Volume 10.2 FL (9.5-12.2); NRBC Per 100 WBC 0 X 10*3/uL (0.00-0.01); Platelet Count 69 X 10*3/uL (140-440); RBC 3.56 X 10*6/uL (4.10-5.20); RDW 16.7 % (11.5-14.5); WBC 3.47 X 10*3/uL (4.50-10.00)
[2024-06-02 17:26] LABS: Glucose,Whole Blood 157 mg/dL (70-110)
[2024-06-02 21:06] LABS: Glucose,Whole Blood 105 mg/dL (70-110)
[2024-06-03 05:39] LABS: Glucose,Whole Blood 80 mg/dL (70-110)
[2024-06-03 07:42] VITALS: BP 110/66; PULSE 84; RESP 17; TEMP 98.3
[2024-06-03 08:01] LABS: Glucose,Whole Blood 111 mg/dL (70-110)
--- NOTE | 2024-06-03 11:38 | P.PN ---
Subjective Progress Note Date: 06/03/24 Patient today reports that she has very minimal pain, has had a bowel movement, is tolerating a diet. She has been up and ambulating, does feel weak when she does so, however, has not had any dizziness or palpitations upon standing. She denies nausea, vomiting, fevers. From medicine point of view, patient is medically stable for discharge. Gen: In NAD, non-toxic HEENT: normocephalic, atraumatic, hearing acuity is intant, mucous membranes moist CVS: perfusing all extremities well, no pitting edema, Respiratory: symmetric chest expansion, no accessory muscle use, GI: soft, NTTP, ND, : no suprapubic tenderness, no CVA tenderness MSK/Derm: no rashes, cyanosis Neuro: CN II-XII intact, no motor weakness, Psych: cooperative, euthymic mood, judgment and insight is intact Hospital Course: Patient is a very pleasant 73-year-old female with a past medical history of CAD, nonischemic cardiomyopathy, hyperlipidemia, iron deficiency anemia, and insulin-dependent diabetes mellitus. She presented to the emergency department on 05/29/2024 with a chief complaint of right upper quadrant abdominal pain. Patient reports the symptoms began approximately 2 days ago and worsen after eating. Reports nausea, but denies any episodes of vomiting, denies fevers, chills, diaphoresis, chest pain, palpitations, shortness of breath, or experiencing any difficulties with or changes in her urinary or bowel function. Upon arrival to our facility, patient underwent evaluation in the emergency department. Vital signs upon arrival show blood pressure 150/81, heart rate 69, respiratory rate 18, temp 97.4 F, and SpO2 of 95% on room air. EKG showing normal sinus rhythm at 77 bpm with left ventricular hypertrophy and T wave inversion in lateral lead aVL, otherwise no significant T wave or ST abnormalities showing no signs of acute ischemia upon personal review and interpretation. Labs were completed and reviewed. CBC showing mild thrombocytopenia with platelet count of 120 otherwise normal findings. BMP showing mild prerenal azotemia with BUN of 18 and blood glucose of 125. Liver profile showing elevated AST of 41 otherwise normal findings. Lactic acid was 1.6. Troponin was negative at less than 0.012. Urinalysis negative for infection. Ultrasound right upper quadrant showing stone at the gallbladder neck with gallbladder distention. Patient was admitted under general surgery team and we were consulted for medical management throughout hospitalization. Assessment and Plan of Care: Postoperative delirium, resolved -Secondary to anesthesia and pain medications patient received. Symptoms significantly improved and patient currently alert to person, place, and situation and only confused to time. -Continue safe and supportive care with assistance and redirection as needed. -Fall precautions in place. Unwitnessed fall during hospitalization -Patient denies having loss of consciousness and denies any injuries or complaints at this time. -CT head was completed showing age-related atrophic and chronic small vessel ischemic changes but negative for acute intracranial process. Acute cholecystitis Symptomatic cholelithiasis Right upper quadrant pain, secondary to above -Continue IV antibiotics with Zosyn 3.375 g every 8 hours, this can be discontinued at discharge -General surgery following, Dr. Ordaz took patient for laparoscopic cholecystectomy on 05/31/2024. -Continue symptomatic care and pain management. Insulin-dependent diabetes mellitus with hyperglycemia -Hold metformin, Trulicity, and Actos. Continue Farxiga 10 mg daily along with Levemir 55 units daily and patient placed on glycemic protocol with NovoLog sliding scale. CAD with history of hx of nonischemic cardiomyopathy, now preserved EF of 50% Hyperlipidemia -Per cardiology, no need to repeat echocardiogram. Patient with previous nonischemic cardiomyopathy with recovered EF. Most recent EF 50% from March 2023. -Continue daily medication regimen with aspirin 81 mg daily, atorvastatin 40 mg daily, and Farxiga 10 mg daily. Pancytopenia Iron deficiency anemia -CBC initially showing WBC count of 3.14, hemoglobin 10.5, and platelet count of 72. Now showing bicytopenia with hemoglobin 9.9 and platelet count of 74. -Patient to continue ferrous sulfate 325 mg daily. Patient is medically cleared for discharge at this time. Objective - Vital Signs Vital signs: Vital Signs Temp 98.3 F 06/03/24 07:00 Pulse 84 06/03/24 07:00 Resp 17 06/03/24 07:00 BP 110/66 06/03/24 07:00 Pulse Ox 92 L 06/03/24 07:00 FiO2 Intake & Output 06/02/24 06/03/24 06/03/24 18:59 06:59 18:59 Intake Total 436 236 Output Total 110 105 Balance 326 -105 236 Intake: Oral 436 236 Output: Drainage 110 105 Upper Anterior Abdomen 110 105 Other: Voiding Method Toilet Toilet # Voids 1 1 - Labs CBC & Chem 7: 06/02/24 06:14 06/01/24 05:50 Labs: Abnormal Lab Results - Last 24 Hours (Table) 06/02/24 06/02/24 06/02/24 Range/Units 06:14 12:24 17:23 WBC 3.47 L (4.50-10.00) X 10*3/uL RBC 3.56 L (4.10-5.20) X 10*6/uL Hgb 9.9 L (12.0-15.0) g/dL Hct 32.4 L (37.2-46.3) % MCHC 30.6 L (32.0-37.0) g/dL RDW 16.7 H (11.5-14.5) % Plt Count 69 L (140-440) X 10*3/uL POC Glucose (mg/dL) 197 H 157 H (70-110) mg/dL 06/03/24 Range/Units 07:58 WBC (4.50-10.00) X 10*3/uL RBC (4.10-5.20) X 10*6/uL Hgb (12.0-15.0) g/dL Hct (37.2-46.3) % MCHC (32.0-37.0) g/dL RDW (11.5-14.5) % Plt Count (140-440) X 10*3/uL POC Glucose (mg/dL) 111 H (70-110) mg/dL
[2024-06-03 11:39] LABS: ALT 23 U/L (8-44); AST 30 U/L (13-35); Albumin 3.2 g/dL (3.8-4.9); Albumin/Globulin Ratio 1.45 Ratio (1.60-3.17); Alkaline Phosphatase 77 U/L (41-126); Blood Urea Nitrogen 8.4 mg/dL (9.0-27.0); Calcium 8.1 mg/dL (8.7-10.3); Carbon Dioxide 27.4 mmol/L (21.6-31.8); Chloride 105 mmol/L (96-109); Globulin 2.2 g/dL (1.6-3.3); Glucose 79 mg/dL (70-110); Potassium 3.4 mmol/L (3.5-5.5); Sodium 143 mmol/L (135-145); Total Bilirubin 0.5 mg/dL (0.3-1.2); Total Protein 5.4 g/dL (6.2-8.2)
[2024-06-03 12:01] LABS: Glucose,Whole Blood 251 mg/dL (70-110)
[2024-06-03 12:19] LABS: Basophils # (A) 0.01 X 10*3/uL (0.00-0.10); Basophils % (A) 0.3 %; Eosinophils # (A) 0.05 X 10*3/uL (0.04-0.35); Eosinophils % (A) 1.5 %; HCT 31.1 % (37.2-46.3); HGB 9.6 g/dL (12.0-15.0); Immature Platelet Fraction 3.5 % (1.1-6.1); Lymphocytes # (A) 0.69 X 10*3/uL (0.90-5.00); Lymphocytes % (A) 21.2 %; MCH 27.4 pg (27.0-32.0); MCHC 30.9 g/dL (32.0-37.0); MCV 88.9 FL (80.0-97.0); Mean Platelet Volume 11.2 FL (9.5-12.2); Monocytes # (A) 0.21 X 10*3/uL (0.20-1.00); Monocytes % (A) 6.4 %; NRBC Per 100 WBC 0 X 10*3/uL (0.00-0.01); Neutrophils # (A) 2.29 X 10*3/uL (1.80-7.70); Neutrophils % (A) 70.3 %; Platelet Count 77 X 10*3/uL (140-440); RDW 16.8 % (11.5-14.5); WBC 3.26 X 10*3/uL (4.50-10.00)
--- NOTE | 2024-06-03 21:43 | P.DS ---
Providers Date of admission: 06/02/24 09:37 Expected date of discharge: 06/03/24 Attending physician: Geoff Ordaz Consults: 05/30/24 08:03 Consult Physician Routine Consulting Provider: Logan Babin Consult Reason/Comments: medical management Do you want consulting provider notified?: Yes 05/30/24 09:47 Consult Physician Urgent Consulting Provider: Zaki Smith Consult Reason/Comments: abnormal EKG, cardiology clearance Do you want consulting provider notified?: Yes Primary care physician: [place] Hospital Course: Patient underwent a cholecystectomy, patient was found to be tolerating diet with pain control. She will be discharge home with drain in stable condition follow up with surgeon in 1 week. Plan - Discharge Summary Discharge Rx Participant: Yes New Discharge Prescriptions: New HYDROcodone/APAP 5-325MG [[place] 5-325] 1 tab PO Q6HR PRN 3 Days #12 tab PRN Reason: Pain Continue Nitroglycerin Sl Tabs [Nitrostat] 0.4 mg SL Q5M PRN PRN Reason: Chest Pain Acarbose 100 mg PO TID Gabapentin 400 mg PO TID DULoxetine HCL [Cymbalta] 30 mg PO DAILY Albuterol Sulfate [Albuterol Sulfate Hfa] 2 puff PO RT-Q4H PRN PRN Reason: Shortness Of Breath Dulaglutide [Trulicity] 3 mg SQ WEEKLY Pantoprazole Sodium [Protonix] 40 mg PO DAILY 14 Days #14 tab Atorvastatin [Lipitor] 40 mg PO DAILY Dapagliflozin Propanediol [Farxiga] 10 mg PO DAILY metFORMIN HCL 1,000 mg PO BID Insulin Detemir [Levemir Flexpen] 55 units SQ DAILY Prevagen Extra Strength 1 tab PO DAILY Pioglitazone [Actos] 15 mg PO DAILY Ferrous Sulfate [Iron (65 MG Elemental)] 325 mg PO DAILY Aspirin EC [Ecotrin Low Dose] 81 mg PO DAILY Discharge Medication List Nitroglycerin Sl Tabs [Nitrostat] 0.4 mg SL Q5M PRN 04/11/14 [History] Acarbose 100 mg PO TID 07/12/15 [History] Gabapentin 400 mg PO TID 07/12/15 [History] Pantoprazole Sodium [Protonix] 40 mg PO DAILY 14 Days #14 tab 07/18/22 [Rx] Atorvastatin [Lipitor] 40 mg PO DAILY 06/15/23 [History] Dapagliflozin Propanediol [Farxiga] 10 mg PO DAILY 06/15/23 [History] Insulin Detemir [Levemir Flexpen] 55 units SQ DAILY 06/15/23 [History] Prevagen Extra Strength 1 tab PO DAILY 06/15/23 [History] metFORMIN HCL 1,000 mg PO BID 06/15/23 [History] Albuterol Sulfate [Albuterol Sulfate Hfa] 2 puff PO RT-Q4H PRN 05/30/24 [History] Aspirin EC [Ecotrin Low Dose] 81 mg PO DAILY 05/30/24 [History] DULoxetine HCL [Cymbalta] 30 mg PO DAILY 05/30/24 [History] Dulaglutide [Trulicity] 3 mg SQ WEEKLY 05/30/24 [History] Ferrous Sulfate [Iron (65 MG Elemental)] 325 mg PO DAILY 05/30/24 [History] Pioglitazone [Actos] 15 mg PO DAILY 05/30/24 [History] HYDROcodone/APAP 5-325MG [[place] 5-325] 1 tab PO Q6HR PRN 3 Days #12 tab 06/03/24 [Rx] Follow up Appointment(s)/Referral(s): Juan Manuel Hartley MD [Primary Care Provider] - 1-2 days (please call for an appointment ) [facility] [NON-STAFF] - 1 Week Geoff Ordaz MD [STAFF PHYSICIAN] - 1 Week (please call wednesday for an appointment for follow up! thank you!! ) Patient Instructions/Handouts: Laparoscopic Cholecystectomy (GEN) Activity/Diet/Wound Care/Special Instructions: low fat diet Discharge Disposition: HOME SELF-CARE
== END 2024-06-03 13:45 | disposition home or self-care (01) | DRG 418 ==
LOC: EC 23:23 → 6NMEDSUR 05-30 02:55 → OBSVTOIN 06-02 09:37
PROVIDERS: ADMIT Surgery; ATTEND Surgery
PROC: 0FT44ZZ Resection of Gallbladder, Percutaneous Endoscopic Approach (ICD-10-PCS; principal; 2024-05-31 10:30)
DX: K80.00 Calculus of gallbladder with acute cholecystitis without obstruction (principal); D61.818 Other pancytopenia; F05 Delirium due to known physiological condition; I42.8 Other cardiomyopathies; K74.60 Unspecified cirrhosis of liver; E11.65 Type 2 diabetes mellitus with hyperglycemia; Z79.4 Long term (current) use of insulin; I10 Essential (primary) hypertension; D50.9 Iron deficiency anemia, unspecified; E78.5 Hyperlipidemia, unspecified; I25.10 Atherosclerotic heart disease of native coronary artery without angina pectoris; R00.0 Tachycardia, unspecified; R33.9 Retention of urine, unspecified; R25.1 Tremor, unspecified; R29.810 Facial weakness; W19.XXXA Unspecified fall, initial encounter; Y92.239 Unspecified place in hospital as the place of occurrence of the external cause; Z79.84 Long term (current) use of oral hypoglycemic drugs; Z79.82 Long term (current) use of aspirin; Z79.85 Long-term (current) use of injectable non-insulin antidiabetic drugs; Z79.899 Other long term (current) drug therapy; Z86.19 Personal history of other infectious and parasitic diseases
CPT/HCPCS: 36415; 70450; 72170; 76705; 80053; 81001; 82150; 83605; 83690; 83735; 84484; 85025; 85027; 88304; 96361; 96374; 96375; 96376; 99285

== ENCOUNTER 2024-06-14 13:46 | Emergency (ER) | payer MEDICARE | END 2024-06-14 14:45 | disposition home or self-care (01) | LOC: EC 13:46 | DX: T85.698A Other mechanical complication of other specified internal prosthetic devices, implants and grafts, initial encounter (principal) | CPT/HCPCS: 99282 ==

== ENCOUNTER → 2024-09-06 | Outpatient (CLI) | payer MEDICARE ==
[2024-09-06 15:10] LABS: Basophils # (A) 0.04 X 10*3/uL (0.00-0.10); Basophils % (A) 0.7 %; Eosinophils # (A) 0.11 X 10*3/uL (0.04-0.35); Eosinophils % (A) 1.9 %; HCT 40.6 % (37.2-46.3); HGB 12.1 g/dL (12.0-15.0); Lymphocytes % (A) 25.4 %; MCH 25.1 pg (27.0-32.0); MCHC 29.8 g/dL (32.0-37.0); MCV 84.2 FL (80.0-97.0); Mean Platelet Volume 10.8 FL (9.5-12.2); Monocytes # (A) 0.34 X 10*3/uL (0.20-1.00); Monocytes % (A) 5.8 %; NRBC Per 100 WBC 0 X 10*3/uL (0.00-0.01); Neutrophils # (A) 3.89 X 10*3/uL (1.80-7.70); Neutrophils % (A) 65.9 %; Platelet Count 128 X 10*3/uL (140-440); RBC 4.82 X 10*6/uL (4.10-5.20); RDW 16.5 % (11.5-14.5)
[2024-09-06 15:34] LABS: % Iron Saturation 6.05 (12.00-45.00); ALT 16 U/L (8-44); AST 23 U/L (13-35); Albumin 4.2 g/dL (3.8-4.9); Alkaline Phosphatase 83 U/L (41-126); BUN/Creat Ratio 18.12 Ratio (12.00-20.00); Blood Urea Nitrogen 14.5 mg/dL (9.0-27.0); Calcium 9.5 mg/dL (8.7-10.3); Carbon Dioxide 26.5 mmol/L (21.6-31.8); Chloride 102 mmol/L (96-109); Chol/HDL Ratio 2.79 Ratio; Ferritin 13.2 ng/mL (10.0-291.0); Glucose 130 mg/dL (70-110); Iron 28 UG/DL (50-170); Potassium 4.3 mmol/L (3.5-5.5); Sodium 143 mmol/L (135-145); T4, Free (Free Thyroxine) 1.11 ng/dL (0.80-1.80); Total Bilirubin 0.6 mg/dL (0.3-1.2); Total Iron Binding Capacity 463 UG/DL (228-460); Total Protein 7.2 g/dL (6.2-8.2); VLDL Calculation 16.96 mg/dL (5.00-40.00)
== END | disposition home or self-care (01) ==
LOC: LABWHC1 08:54
PROVIDERS: ATTEND Family Medicine
DX: D64.9 Anemia, unspecified (principal); E55.9 Vitamin D deficiency, unspecified; E78.5 Hyperlipidemia, unspecified
CPT/HCPCS: 36415; 80053; 80061; 82306; 82728; 83540; 83550; 84439; 84443; 85025

== ENCOUNTER → 2024-11-09 | Outpatient (CLI) | payer MEDICARE ==
[2024-11-09 15:03] LABS: Basophils # (A) 0.04 X 10*3/uL (0.00-0.10); Basophils % (A) 1.1 %; Eosinophils # (A) 0.09 X 10*3/uL (0.04-0.35); Eosinophils % (A) 2.5 %; HCT 37.6 % (37.2-46.3); HGB 10.8 g/dL (12.0-15.0); Lymphocytes # (A) 1.07 X 10*3/uL (0.90-5.00); Lymphocytes % (A) 29.2 %; MCH 23.7 pg (27.0-32.0); MCHC 28.7 g/dL (32.0-37.0); MCV 82.5 FL (80.0-97.0); Mean Platelet Volume 10.7 FL (9.5-12.2); Monocytes # (A) 0.19 X 10*3/uL (0.20-1.00); Monocytes % (A) 5.2 %; NRBC Per 100 WBC 0 X 10*3/uL (0.00-0.01); Neutrophils # (A) 2.26 X 10*3/uL (1.80-7.70); Neutrophils % (A) 61.7 %; Platelet Count 109 X 10*3/uL (140-440); RBC 4.56 X 10*6/uL (4.10-5.20); RDW 17.8 % (11.5-14.5); WBC 3.66 X 10*3/uL (4.50-10.00)
[2024-11-09 15:41] LABS: % Iron Saturation 5.77 (12.00-45.00); ALT 24 U/L (8-44); AST 30 U/L (13-35); Albumin 4.2 g/dL (3.8-4.9); Albumin/Globulin Ratio 1.31 Ratio (1.60-3.17); Alkaline Phosphatase 93 U/L (41-126); BUN/Creat Ratio 15.12 Ratio (12.00-20.00); Blood Urea Nitrogen 12.1 mg/dL (9.0-27.0); Calcium 9.5 mg/dL (8.7-10.3); Carbon Dioxide 25.3 mmol/L (21.6-31.8); Chloride 104 mmol/L (96-109); Chol/HDL Ratio 3.77 Ratio; Ferritin 14.5 ng/mL (10.0-291.0); Globulin 3.2 g/dL (1.6-3.3); Glucose 164 mg/dL (70-110); Iron 25 UG/DL (50-170); LDL Cholesterol,Calculated 86.9 mg/dL (0.0-131.0); Potassium 3.9 mmol/L (3.5-5.5); Sodium 142 mmol/L (135-145); Total Bilirubin 0.4 mg/dL (0.3-1.2); Total Iron Binding Capacity 433 UG/DL (228-460); Total Protein 7.4 g/dL (6.2-8.2)
== END | disposition home or self-care (01) ==
LOC: LABWHC1 09:28
PROVIDERS: ATTEND Family Medicine
DX: E11.65 Type 2 diabetes mellitus with hyperglycemia (principal); E11.42 Type 2 diabetes mellitus with diabetic polyneuropathy; E11.21 Type 2 diabetes mellitus with diabetic nephropathy; E78.5 Hyperlipidemia, unspecified; D50.9 Iron deficiency anemia, unspecified; M85.80 Other specified disorders of bone density and structure, unspecified site
CPT/HCPCS: 36415; 80053; 80061; 82306; 82728; 83036; 83540; 83550; 85025

== ENCOUNTER 2024-11-26 04:51 | Emergency (ER) | payer MEDICARE ==
--- NOTE | 2024-11-26 05:17 | ED ---
General Adult HPI - General Source: patient, RN notes reviewed, old records reviewed Mode of arrival: ambulatory <Deonte Mccain - Last Filed: 11/26/24 06:57> <Sharad Winchester - Last Filed: 11/26/24 09:36> - General Chief complaint: Abdominal Pain Stated complaint: Abdominal Pain Time Seen by Provider: 11/26/24 04:56 - History of Present Illness Initial comments: 74-year-old female presenting with abdominal pain and distention. Symptoms have been present for the past 3 days. She has had nausea and a small amount of vomiting. She states she has had stool output but it has been decreased. No fever. She has previous history of cholecystectomy. No chest pain. (Deonte Mccain) - Related Data Home Medications Medication Instructions Recorded Confirmed Nitroglycerin Sl Tabs [Nitrostat] 0.4 mg SL Q5M PRN 04/11/14 05/30/24 Acarbose 100 mg PO TID 07/12/15 05/30/24 Gabapentin 400 mg PO TID 07/12/15 05/30/24 Atorvastatin [Lipitor] 40 mg PO DAILY 06/15/23 05/30/24 Dapagliflozin Propanediol [Farxiga] 10 mg PO DAILY 06/15/23 05/30/24 Insulin Detemir [Levemir Flexpen] 55 units SQ DAILY 06/15/23 05/30/24 Prevagen Extra Strength 1 tab PO DAILY 06/15/23 05/30/24 metFORMIN HCL 1,000 mg PO BID 06/15/23 05/30/24 Albuterol Sulfate [Albuterol 2 puff PO RT-Q4H PRN 05/30/24 05/30/24 Sulfate Hfa] Aspirin EC [Ecotrin Low Dose] 81 mg PO DAILY 05/30/24 05/30/24 DULoxetine HCL [Cymbalta] 30 mg PO DAILY 05/30/24 05/30/24 Dulaglutide [Trulicity] 3 mg SQ WEEKLY 05/30/24 05/30/24 Ferrous Sulfate [Iron (65 MG 325 mg PO DAILY 05/30/24 05/30/24 Elemental)] Pioglitazone [Actos] 15 mg PO DAILY 05/30/24 05/30/24 Previous Rx's Medication Instructions Recorded Pantoprazole Sodium [Protonix] 40 mg PO DAILY 14 Days #14 tab 09/17/22 HYDROcodone/APAP 5-325MG [Meridian 1 tab PO Q6HR PRN 3 Days #12 tab 06/03/24 5-325] Allergies Allergy/AdvReac Type Severity Reaction Status Date / Time No Known Allergies Allergy Verified 11/26/24 04:57 Review of Systems ROS Other: All systems not noted in ROS Statement are negative. <Deonte Mccain - Last Filed: 11/26/24 06:57> ROS Other: All systems not noted in ROS Statement are negative. <Sharad Winchester - Last Filed: 11/26/24 09:36> ROS Statement: Those systems with pertinent positive or pertinent negative responses have been documented in the HPI. Past Medical History Past Medical History: Asthma, Chest Pain / Angina, Diabetes Mellitus, Hypertension, Liver Disease Additional Past Medical History / Comment(s): HX OF HEPATITIS A @ 12 YRS OLD, ON AND OFF DIARRHEA. Bilateral shoulder, arm and hip., iron deficiency anemia. History of Any Multi-Drug Resistant Organisms: None Reported Past Surgical History: Section, Cholecystectomy, Hysterectomy, Orthopedic Surgery Additional Past Surgical History / Comment(s): RT CARPAL TUNNEL, CYSTS AND TRIGGER FINGER RT & LT HANDS, CS X4., EGD Past Anesthesia/Blood Transfusion Reactions: No Reported Reaction, Motion Sickness Additional Past Anesthesia/Blood Transfusion Reaction / Comment(s): Niece passed and almost , not sure exactly what happened. Past Psychological History: No Psychological Hx Reported Smoking Status: Never smoker Past Alcohol Use History: None Reported Past Drug Use History: None Reported - Past Family History Sister(s) Family Medical History: Cancer Mother History Unknown: Yes Family Medical History: Deep Vein Thrombosis (DVT), Myocardial Infarction ([place]) Father History Unknown: Yes Additional Family Medical History / Comment(s): emphysema <Deonte Mccain - Last Filed: 11/26/24 06:57> General Exam General appearance: alert, in no apparent distress Head exam: Present: atraumatic, normocephalic Eye exam: Present: normal appearance, PERRL ENT exam: Present: mucous membranes dry Neck exam: Present: normal inspection. Absent: tenderness, meningismus Respiratory exam: Present: normal lung sounds bilaterally. Absent: respiratory distress, wheezes Cardiovascular Exam: Present: regular rate, normal rhythm GI/Abdominal exam: Present: distended, tenderness. Absent: rebound, rigid Extremities exam: Present: normal inspection, normal capillary refill. Absent: calf tenderness Neurological exam: Present: alert, oriented X3, CN II-XII intact. Absent: motor sensory deficit Psychiatric exam: Present: normal affect, normal mood Skin exam: Present: warm, dry, intact <Deonte Mccain Tigre - Last Filed: 11/26/24 06:57> Course Vital Signs 11/26/24 11/26/24 11/26/24 04:53 06:19 07:23 Temperature 97.7 F 98.4 F Pulse Rate 94 58 L 95 Respiratory 18 15 17 Rate Blood Pressure 154/72 156/90 136/78 O2 Sat by Pulse 97 93 L 95 Oximetry Medical Decision Making - Lab Data Result diagrams: 11/26/24 05:18 11/26/24 05:18 <Deonte Mccain - Last Filed: 11/26/24 06:57> - Lab Data Result diagrams: 11/26/24 05:18 11/26/24 05:18 <Sharad Winchester - Last Filed: 11/26/24 09:36> - Medical Decision Making Was pt. sent in by a medical professional or institution (EMREY Boyle, EMT DRIVER, urgent care, hospital, or senior care...) When possible be specific @ -No Did you speak to anyone other than the patient for history (EMS, parent, family, police, friend...)? What history was obtained from this source @ -No Did you review nursing and triage notes (agree or disagree)? Why? @ -I reviewed and agree with nursing and triage notes Were old charts reviewed (outside hosp., previous admission, EMS record, old EKG, old radiological studies, urgent care reports/EKG's, senior care records)? Report findings @ -No old charts were reviewed Differential Abdominal Pain Women: Appendicitis, Cholecystitis, diverticulosis, ischemic bowel, pancreatitis, hepatitis, UTI, gastroenteritis, AAA, incarcerated hernia, bowel obstruction, constipation, inflammatory bowel, hepatitis, peptic ulcer disease, splenic infarction, perforated viscus, , kidney stone, this is not meant to be an all- inclusive list EKG interpreted by me (3pts min.). @ -Sinus rhythm rate of 95, NV interval 165, QRS duration 117, QTc 419 X-rays interpreted by me (1pt min.). @ -None done CT interpreted by me (1pt min.). @ -CT abdomen pelvis results pending U/S interpreted by me (1pt. min.). @ -None done What testing was considered but not performed or refused? (CT, X-rays, U/S, labs)? Why? @ -None What meds were considered but not given or refused? Why? @ -None Did you discuss the management of the patient with other professionals (professionals i.e. , PA, EMT DRIVER, lab, RT, psych nurse, social service coordinator, nutritional assistant, teacher, seaman officer, briefcase sewer)? Give summary @ -No Was smoking cessation discussed for >3mins.? @ -No Was critical care preformed (if so, how long)? @ -No Were there social determinants of health that impacted care today? How? (Homelessness, low income, unemployed, alcoholism, drug addiction, transportation, low edu. Level, literacy, decrease access to med. care, long term, rehab)? @ -No Was there de-escalation of care discussed even if they declined (Discuss DNR or withdrawal of care, Hospice)? DNR status @ -No What co-morbidities impacted this encounter? (DM, HTN, Smoking, COPD, CAD, Cancer, CVA, ARF, Chemo, Hep., AIDS, mental health diagnosis, sleep apnea, morbid obesity)? @ -[Prior cholecystectomy Was patient admitted / discharged? Hospital course, mention meds given and route, prescriptions, significant lab abnormalities, going to OR and other pertinent info. @ -74-year-old female presenting with 3 days of abdominal pain and distention. Associated nausea and vomiting. Patient has normal CBC, normal CMP with the exception of mildly elevated lactic acid which I suspect is from dehydration. Patient has undergone CT abdomen pelvis which is negative for acute process. Vital signs are stable. Patient care signed out at shift change awaiting laboratory testing and reevaluation. (Deonte Mccain) Patient endorsed to me for probable discharge pending catheterization for bladder decompression and pending urinalysis and troponin. Patient reevaluated and resting comfortably in bed. Abdomen soft and nontender. Patient states she does feel much better following straight catheterization. Discussion with patient regarding Gordon catheter to go home and patient does not want this. Patient does have an appointment on Wednesday and will keep this with her primary care physician. Patient is updated on results and need for follow- up. Diagnosis: Abdominal pain Acuity: Acute (Sharad Winchester) - Lab Data Lab Results 11/26/24 11/26/24 11/26/24 Range/Units 05:18 05:18 05:18 WBC 5.9 (3.8-10.6) k/uL RBC 4.73 (3.80-5.40) m/uL Hgb 11.8 (11.4-16.0) gm/dL Hct 37.4 (34.0-46.0) % MCV 79.1 L (80.0-100.0) fL MCH 25.0 (25.0-35.0) pg MCHC 31.6 (31.0-37.0) g/dL RDW 18.2 H (11.5-15.5) % Plt Count 115 L (150-450) k/uL MPV 6.8 Neutrophils % 75 % Lymphocytes % 18 % Monocytes % 5 % Eosinophils % 1 % Basophils % 0 % Neutrophils # 4.4 (1.3-7.7) k/uL Lymphocytes # 1.1 (1.0-4.8) k/uL Monocytes # 0.3 (0-1.0) k/uL Eosinophils # 0.1 (0-0.7) k/uL Basophils # 0.0 (0-0.2) k/uL Hypochromasia Marked Anisocytosis Slight Microcytosis Slight PT (10.0-12.5) sec INR (<1.2) APTT (22.0-30.0) sec Sodium 138 (137-145) mmol/L Potassium 4.1 (3.5-5.1) mmol/L Chloride 100 (98-107) mmol/L Carbon Dioxide 24 (22-30) mmol/L Anion Gap 14 mmol/L BUN 11 (7-17) mg/dL Creatinine 0.59 (0.52-1.04) mg/dL Est GFR (CKD-EPI)AfAm >90 (>60 ml/min/1.73 sqM) Est GFR (CKD-EPI)NonAf >90 (>60 ml/min/1.73 sqM) Glucose 125 H (74-99) mg/dL POC Glucose (mg/dL) (70-110) mg/dL POC Glu Terrapin Fisher ID Lactic Ac Sepsis Rflx Plasma Lactic Acid Roberto 3.1 H* (0.7-2.0) mmol/L Calcium 8.9 (8.4-10.2) mg/dL Total Bilirubin 0.8 (0.2-1.3) mg/dL AST 41 H (14-36) U/L ALT 27 (4-34) U/L Alkaline Phosphatase 98 (38-126) U/L Troponin I (0.000-0.034) ng/mL Total Protein 7.5 (6.3-8.2) g/dL Albumin 4.3 (3.5-5.0) g/dL Lipase 46 (23-300) U/L Urine Color Urine Appearance (Clear) Urine pH (5.0-8.0) Ur Specific Tarpley (1.001-1.035) Urine Protein (Negative) Urine Glucose (UA) (Negative) Urine Ketones (Negative) Urine Blood (Negative) Urine Nitrite (Negative) Urine Bilirubin (Negative) Urine Urobilinogen (<2.0) mg/dL Ur Leukocyte Esterase (Negative) Urine RBC (0-5) /hpf Urine WBC (0-5) /hpf Ur Squamous Epith Cells (0-4) /hpf Amorphous Sediment (None) /hpf Urine Bacteria (None) /hpf Urine Mucus (None) /hpf Urine Yeast (Budding) (None) /hpf 11/26/24 11/26/24 11/26/24 Range/Units 05:18 05:41 05:50 WBC (3.8-10.6) k/uL RBC (3.80-5.40) m/uL Hgb (11.4-16.0) gm/dL Hct (34.0-46.0) % MCV (80.0-100.0) fL MCH (25.0-35.0) pg MCHC (31.0-37.0) g/dL RDW (11.5-15.5) % Plt Count (150-450) k/uL MPV Neutrophils % % Lymphocytes % % Monocytes % % Eosinophils % % Basophils % % Neutrophils # (1.3-7.7) k/uL Lymphocytes # (1.0-4.8) k/uL Monocytes # (0-1.0) k/uL Eosinophils # (0-0.7) k/uL Basophils # (0-0.2) k/uL Hypochromasia Anisocytosis Microcytosis PT 11.2 (10.0-12.5) sec INR 1.0 (<1.2) APTT 23.5 (22.0-30.0) sec Sodium (137-145) mmol/L Potassium (3.5-5.1) mmol/L Chloride (98-107) mmol/L Carbon Dioxide (22-30) mmol/L Anion Gap mmol/L BUN (7-17) mg/dL Creatinine (0.52-1.04) mg/dL Est GFR (CKD-EPI)AfAm (>60 ml/min/1.73 sqM) Est GFR (CKD-EPI)NonAf (>60 ml/min/1.73 sqM) Glucose (74-99) mg/dL POC Glucose (mg/dL) 141 H (70-110) mg/dL POC Glu Terrapin Fisher ID Rheryane Emie Lactic Ac Sepsis Rflx Plasma Lactic Acid Roberto (0.7-2.0) mmol/L Calcium (8.4-10.2) mg/dL Total Bilirubin (0.2-1.3) mg/dL AST (14-36) U/L ALT (4-34) U/L Alkaline Phosphatase (38-126) U/L Troponin I <0.012 (0.000-0.034) ng/mL Total Protein (6.3-8.2) g/dL Albumin (3.5-5.0) g/dL Lipase (23-300) U/L Urine Color Urine Appearance (Clear) Urine pH (5.0-8.0) Ur Specific Tarpley (1.001-1.035) Urine Protein (Negative) Urine Glucose (UA) (Negative) Urine Ketones (Negative) Urine Blood (Negative) Urine Nitrite (Negative) Urine Bilirubin (Negative) Urine Urobilinogen (<2.0) mg/dL Ur Leukocyte Esterase (Negative) Urine RBC (0-5) /hpf Urine WBC (0-5) /hpf Ur Squamous Epith Cells (0-4) /hpf Amorphous Sediment (None) /hpf Urine Bacteria (None) /hpf Urine Mucus (None) /hpf Urine Yeast (Budding) (None) /hpf 11/26/24 11/26/24 Range/Units 05:51 06:42 WBC (3.8-10.6) k/uL RBC (3.80-5.40) m/uL Hgb (11.4-16.0) gm/dL Hct (34.0-46.0) % MCV (80.0-100.0) fL MCH (25.0-35.0) pg MCHC (31.0-37.0) g/dL RDW (11.5-15.5) % Plt Count (150-450) k/uL MPV Neutrophils % % Lymphocytes % % Monocytes % % Eosinophils % % Basophils % % Neutrophils # (1.3-7.7) k/uL Lymphocytes # (1.0-4.8) k/uL Monocytes # (0-1.0) k/uL Eosinophils # (0-0.7) k/uL Basophils # (0-0.2) k/uL Hypochromasia Anisocytosis Microcytosis PT (10.0-12.5) sec INR (<1.2) APTT (22.0-30.0) sec Sodium (137-145) mmol/L Potassium (3.5-5.1) mmol/L Chloride (98-107) mmol/L Carbon Dioxide (22-30) mmol/L Anion Gap mmol/L BUN (7-17) mg/dL Creatinine (0.52-1.04) mg/dL Est GFR (CKD-EPI)AfAm (>60 ml/min/1.73 sqM) Est GFR (CKD-EPI)NonAf (>60 ml/min/1.73 sqM) Glucose (74-99) mg/dL POC Glucose (mg/dL) (70-110) mg/dL POC Glu Terrapin Fisher ID Lactic Ac Sepsis Rflx Y Plasma Lactic Acid Roberto (0.7-2.0) mmol/L Calcium (8.4-10.2) mg/dL Total Bilirubin (0.2-1.3) mg/dL AST (14-36) U/L ALT (4-34) U/L Alkaline Phosphatase (38-126) U/L Troponin I (0.000-0.034) ng/mL Total Protein (6.3-8.2) g/dL Albumin (3.5-5.0) g/dL Lipase (23-300) U/L Urine Color Colorless Urine Appearance Clear (Clear) Urine pH 6.5 (5.0-8.0) Ur Specific Tarpley >1.050 H (1.001-1.035) Urine Protein Negative (Negative) Urine Glucose (UA) 4+ H (Negative) Urine Ketones Negative (Negative) Urine Blood Negative (Negative) Urine Nitrite Negative (Negative) Urine Bilirubin Negative (Negative) Urine Urobilinogen 2.0 (<2.0) mg/dL Ur Leukocyte Esterase Trace H (Negative) Urine RBC 3 (0-5) /hpf Urine WBC 4 (0-5) /hpf Ur Squamous Epith Cells 8 H (0-4) /hpf Amorphous Sediment Rare H (None) /hpf Urine Bacteria Rare H (None) /hpf Urine Mucus Rare H (None) /hpf Urine Yeast (Budding) Few H (None) /hpf Disposition Is patient prescribed a controlled substance at d/c from ED?: No <Deonte Mccain - Last Filed: 11/26/24 06:57> Is patient prescribed a controlled substance at d/c from ED?: No Time of Disposition: 09:36 <Sharad Winchester - Last Filed: 11/26/24 09:36> Clinical Impression: Abdominal pain Disposition: HOME SELF-CARE Condition: Stable Instructions (If sedation given, give patient instructions): Abdominal Pain (ED) Additional Instructions: Please do follow-up with your primary care physician Wednesday as scheduled. Return for increased pain, fever, difficulty urinating, vomiting, worsening symptoms or any other concerns. Referrals: Juan Manuel Hartley MD [Primary Care Provider] - 1-2 days
[2024-11-26 05:40] LABS: ALT 27 U/L (4-34); AST 41 U/L (14-36); African American GFR (CKD) >90 (>60 ml/min/1.73 sqM); Albumin 4.3 g/dL (3.5-5.0); Alkaline Phosphatase 98 U/L (38-126); Anion Gap 14 mmol/L; Blood Urea Nitrogen 11 mg/dL (7-17); Calcium 8.9 mg/dL (8.4-10.2); Carbon Dioxide 24 mmol/L (22-30); Chloride 100 mmol/L (98-107); Glucose 125 mg/dL (74-99); Lipase 46 U/L (23-300); Non-African American GFR(CKD) >90 (>60 ml/min/1.73 sqM); Potassium 4.1 mmol/L (3.5-5.1); Sodium 138 mmol/L (137-145); Total Bilirubin 0.8 mg/dL (0.2-1.3); Total Protein 7.5 g/dL (6.3-8.2)
[2024-11-26 05:43] LABS: Anisocytosis Slight; Basophils % (A) 0 %; Eosinophils # (A) 0.1 k/uL (0-0.7); Eosinophils % (A) 1 %; HCT 37.4 % (34.0-46.0); HGB 11.8 gm/dL (11.4-16.0); Hypochromasia Marked; Lymphocytes # (A) 1.1 k/uL (1.0-4.8); Lymphocytes % (A) 18 %; MCHC 31.6 g/dL (31.0-37.0); MCV 79.1 fL (80.0-100.0); Mean Platelet Volume 6.8; Microcytosis Slight; Monocytes # (A) 0.3 k/uL (0-1.0); Monocytes % (A) 5 %; Neutrophils # (A) 4.4 k/uL (1.3-7.7); Neutrophils % (A) 75 %; Platelet Count 115 k/uL (150-450); RBC 4.73 m/uL (3.80-5.40); RDW 18.2 % (11.5-15.5); WBC 5.9 k/uL (3.8-10.6)
[2024-11-26] MEDS: SODIUM CHLORIDE 0.9% 500 ML 500 ML IV STA (05:43)
[2024-11-26] MEDS: HYDROmorphone 0.5 MG/0.5 ML SYRINGE IVP STA (05:44)
[2024-11-26] MEDS: ONDANSETRON 4 MG/2 ML VIAL IVP STA (05:46)
[2024-11-26 05:51] LABS: Glucose,Whole Blood 141 mg/dL (70-110)
[2024-11-26 06:07] LABS: Partial Thromboplastin Time 23.5 sec (22.0-30.0); Prothrombin Time 11.2 sec (10.0-12.5)
--- NOTE | 2024-11-26 06:47 | CT ---
EXAMINATION TYPE: CT abdomen pelvis w con DATE OF EXAM: 11/26/2024 COMPARISON: 03/27/2014 CLINICAL INDICATION: Female, 74 years old with history of abdominal pain; [facility], TECHNIQUE: Multiple axial images are obtained through the abdomen and pelvis following nonionic IV contrast. Aut omated exposure control for dose reduction was used. FINDINGS: There is a stable stable 3.65 groundglass nodule in the right middle lobe. There are a few stable sca ttered micronodules. The gallbladder is normal without distention, wall thickening, pericholecystic fluid or gallstones. T here is no biliary ductal dilatation. There is splenomegaly which has increased mildly in the interval. Previously the spleen is 15.3 cm an d is now 17.3 cm. There is no focal liver mass but there is recanalization of the umbilical vein admi nistration the question of cirrhosis. There is a stable 13-14 mm cyst of the body of the pancreas. Th e pancreas is markedly atrophic. There is no solid renal mass or hydronephrosis and there is homogeneous contrast enhancement of the r enal parenchyma. The caliber the abdominal aorta is normal is no retroperitoneal adenopathy or hemorr meka. The bowel loops are normal in caliber and there is no evidence of dilatation or obstruction. No infla mmatory changes are identified in the bowel wall or mesentery. There is no free intraperitoneal air or fluid. Status post hysterectomy. No pelvic mass, free fluid, abscess or adenopathy. The osseous structures and soft tissues are intact. IMPRESSION: 1. Increasing splenomegaly recanalization of the umbilical vein raising the question of cirrhosis cor relation is recommended. 2. Stable 13-14 mm cyst at the pancreas. 3. No acute changes within the abdomen or pelvis. [facility], , 11/26/2024 6:43 AM
[2024-11-26 06:54] LABS: Amorphous Sediment,Urine Rare /hpf; Appearance,Urine Clear (Clear); Bacteria,Urine Rare /hpf; Bilirubin,Urine Negative (Negative); Blood,Urine Negative (Negative); Budding Yeast,Urine Few /hpf; Color,Urine Colorless; Glucose,Urine (UA) 4+ (Negative); Ketones,Urine Negative (Negative); Leukocyte Esterase,Urine Trace (Negative); Mucus,Urine Rare /hpf; Nitrite,Urine Negative (Negative); PH, Urine 6.5 (5.0-8.0); Protein,Urine Negative (Negative); RBC,Urine 3 /hpf (0-5); Squamous Epithelial Cell,Urine 8 /hpf (0-4); WBC,Urine 4 /hpf (0-5)
[2024-11-26 07:00] LABS: Specific Gravity,Urine >1.050 (1.001-1.035)
[2024-11-26 07:25] VITALS: RESP 17
[2024-11-26 10:25] VITALS: BP 143/75; PULSE 91; TEMP 98
== END 2024-11-26 09:47 | disposition home or self-care (01) ==
LOC: EC 04:51
DX: R10.9 Unspecified abdominal pain (principal); Z90.49 Acquired absence of other specified parts of digestive tract
CPT/HCPCS: 51798; 36415; 80053; 83605; 83690; 84484; 85025; 85610; 85730; 81001; 74177; 99284; 96374; 96375; 96361; J2405; J1171; Q9967

== ENCOUNTER → 2025-02-09 | Outpatient (CLI) | payer MEDICARE ==
[2025-02-09 15:24] LABS: Basophils # (A) 0.04 X 10*3/uL (0.00-0.10); Basophils % (A) 1.2 %; Eosinophils # (A) 0.08 X 10*3/uL (0.04-0.35); Eosinophils % (A) 2.5 %; HCT 31.1 % (37.2-46.3); HGB 8.8 g/dL (12.0-15.0); Lymphocytes # (A) 0.86 X 10*3/uL (0.90-5.00); Lymphocytes % (A) 26.7 %; MCH 22.1 pg (27.0-32.0); MCHC 28.3 g/dL (32.0-37.0); MCV 77.9 FL (80.0-97.0); Monocytes # (A) 0.25 X 10*3/uL (0.20-1.00); Monocytes % (A) 7.8 %; NRBC Per 100 WBC 0 X 10*3/uL (0.00-0.01); Neutrophils # (A) 1.98 X 10*3/uL (1.80-7.70); Neutrophils % (A) 61.5 %; Platelet Count 90 X 10*3/uL (140-440); RBC 3.99 X 10*6/uL (4.10-5.20); RDW 19.4 % (11.5-14.5); WBC 3.22 X 10*3/uL (4.50-10.00)
[2025-02-09 15:45] LABS: % Iron Saturation 4.62 (12.00-45.00); ALT 23 U/L (8-44); AST 37 U/L (13-35); Albumin 3.9 g/dL (3.8-4.9); Alkaline Phosphatase 79 U/L (41-126); BUN/Creat Ratio 15.29 Ratio (12.00-20.00); Blood Urea Nitrogen 10.7 mg/dL (9.0-27.0); Calcium 9.1 mg/dL (8.7-10.3); Carbon Dioxide 26.4 mmol/L (21.6-31.8); Chloride 108 mmol/L (96-109); Chol/HDL Ratio 2.81 Ratio; Ferritin 8.8 ng/mL (10.0-291.0); Glucose 107 mg/dL (70-110); Iron 22 UG/DL (50-170); LDL Cholesterol,Calculated 66.6 mg/dL (0.0-131.0); Potassium 4.1 mmol/L (3.5-5.5); Sodium 147 mmol/L (135-145); Total Bilirubin 0.4 mg/dL (0.3-1.2); Total Iron Binding Capacity 476 UG/DL (228-460); Total Protein 6.9 g/dL (6.2-8.2)
--- NOTE | 2025-02-09 16:14 | MM ---
Reason for Exam: Screening (asymptomatic). Last mammogram was performed 2 year(s) and 4 month(s) ago. Patient History: Menarche at age 17. First Full-Term at age 18. Left ovary removed at age 29. Right ovary removed at age 29. Hysterectomy at age 29. Postmenopausal. Patient used Hormonal Contraceptives for 6 years. Risk Values: Anne 5 year model risk: 1.2%. NCI Lifetime model risk: 2.5%. Prior Study Comparison: 08/23/2019 Bilateral Screening Mammogram, [facility]. 07/24/2021 Bilateral Screening Mammogram, [facility]. 10/01/2022 Bilateral MG 3D screening mammo w/cad, [facility]. Tissue Density: There are scattered areas of fibroglandular density. Findings: Analyzed By CAD. A few bilateral areas of asymmetric density remain unchanged. Additional scattered benign round, secretory, and some coarse calcifications are redemonstrated. There is no suspicious group of microcalcifications or new suspicious mass in either breast. Overall Assessment: Benign, BI-RAD 2 Management: Screening Mammogram of both breasts in 1 year. Patient should continue monthly self-breast exams. A clinical breast exam by your physician is recommended on an annual basis. This exam should not preclude additional follow-up of suspicious palpable abnormalities. Note on Anne scores and lifetime risk: 1. A Anne score greater than 3% is considered moderate risk. If this is the case, consider specialist referral to assess eligibility for a risk reducing agent. 2. If overall lifetime risk for the development of breast cancer is 20% or higher, the patient may qualify for future screening with alternating mammogram and breast MRI. [facility], , 02/09/2025 4:11 PM. Electronically signed and approved by: Shima Rain M.D. Radiologist
== END | disposition home or self-care (01) ==
LOC: RADMAMWWP 08:00
PROVIDERS: ATTEND Family Medicine
DX: Z12.31 Encounter for screening mammogram for malignant neoplasm of breast (principal); E11.65 Type 2 diabetes mellitus with hyperglycemia; E11.21 Type 2 diabetes mellitus with diabetic nephropathy; E78.5 Hyperlipidemia, unspecified; D64.9 Anemia, unspecified; R92.323 Mammographic fibroglandular density, bilateral breasts; Z78.0 Asymptomatic menopausal state; Z92.0 Personal history of contraception
CPT/HCPCS: 77063; 77067; 80053; 80061; 82728; 83036; 83540; 83550; 85025

== ENCOUNTER 2025-04-11 08:04 | Day surgery (SDC) | payer MEDICARE ==
[2025-04-11] MEDS: IV FLUID CONTINUATION 1,000 ML IV ONE (09:35)
[2025-04-11 09:45] VITALS: TEMP 97.7
[2025-04-11] MEDS: LACTATED RINGERS 1,000 ML BAG IV STA (09:55)
[2025-04-11 09:58] LABS: Glucose,Whole Blood 112 mg/dL (70-110)
[2025-04-11] MEDS ORDERED: LIDOCAINE 2% (PF) 20 MG/ML 5 ML VIAL ONE (10:14)
[2025-04-11] MEDS ORDERED: PROPOFOL 10 MG/ML 20 ML VIAL IV ONE (10:14)
--- NOTE | 2025-04-11 10:27 | P.PCN ---
Date of Procedure: 04/11/25 Procedure(s) Performed: BRIEF HISTORY: Patient is a 74-year-old, pleasant, white female scheduled up anoscopy as a part of evaluation of iron deficiency anemia. She also has long- term history of GERD.. PROCEDURE PERFORMED: Esophagogastroduodenoscopy with biopsy. PREOPERATIVE DIAGNOSIS: GERD/iron deficiency anemia. IV sedation per anesthesia. PROCEDURE: After informed consent was obtained, the patient was brought into the endoscopy unit. IV sedation was administered by Anesthesia under continuous monitoring. Initially the Olympus GIF-140 video endoscope was inserted into the mouth. Esophagus intubated without any difficulty. It was gradually advanced into the stomach and duodenum and carefully examined. The bulb and the second part of the duodenum appeared normal. The scope at this time was withdrawn to the stomach, adequately insufflated with air, and upon careful examination, mucosa of the antrum, had mild nodular gastritis and biopsies were done from this area. Mucosa of the body, cardia and the fundus appeared normal. The scope was then withdrawn into the esophagus. The GE junction was located at 39 cm from the incisors. The esophagus appeared normal. There were no erosions or ulcerations seen and the patient tolerated the procedure well. IMPRESSION: 1. Mild nodular gastritis. 2. No evidence of esophagitis or peptic ulcer disease. RECOMMENDATIONS: The findings of this examination were discussed with the patient as well as her family. She was advised to follow-up with the biopsy results. Continue with Protonix 40 mg daily s and follow antireflux measures..
[2025-04-11 10:33] VITALS: RESP 16
[2025-04-11 11:13] VITALS: BP 135/72; PULSE 92
== END 2025-04-11 11:27 | disposition home or self-care (01) ==
LOC: ORWHC2ENDO 08:04
PROVIDERS: ATTEND Internal Medicine Gastroenterology
DX: K29.60 Other gastritis without bleeding (principal); K31.89 Other diseases of stomach and duodenum; K21.9 Gastro-esophageal reflux disease without esophagitis; D50.9 Iron deficiency anemia, unspecified; I10 Essential (primary) hypertension; E11.9 Type 2 diabetes mellitus without complications; J45.909 Unspecified asthma, uncomplicated; Z79.85 Long-term (current) use of injectable non-insulin antidiabetic drugs; Z79.84 Long term (current) use of oral hypoglycemic drugs; Z79.4 Long term (current) use of insulin; Z79.899 Other long term (current) drug therapy
CPT/HCPCS: 43239; J2704; J2003; 88305

== ENCOUNTER 2025-04-28 11:41 | Emergency (ER) | payer MEDICARE ==
[2025-04-28 11:45] VITALS: RESP 18; TEMP 98.1
--- NOTE | 2025-04-28 12:33 | ED ---
General Adult HPI - General Chief complaint: Abdominal Pain Stated complaint: abd pain Time Seen by Provider: 04/28/25 11:49 Source: patient, RN notes reviewed Mode of arrival: ambulatory Limitations: no limitations - History of Present Illness Initial comments: 74-year-old female presents to the emergency department for evaluation of right- sided abdominal pain. Patient states that this started yesterday. She notes that she went to the clinic today and was advised to come to the emergency department for concern of appendicitis. She denies any fever, chills, nausea, vomiting. Denies any changes in her bowel movements. Denies any urinary sympto ms. Prior abdominal surgeries include a cholecystectomy. - Related Data Home Medications Medication Instructions Recorded Confirmed Nitroglycerin Sl Tabs [Nitrostat] 0.4 mg SL Q5M PRN 04/11/14 04/11/25 Acarbose 100 mg PO TID 07/12/15 04/11/25 Gabapentin 400 mg PO TID 07/12/15 04/11/25 Atorvastatin [Lipitor] 40 mg PO DAILY 06/15/23 04/11/25 Dapagliflozin Propanediol [Farxiga] 10 mg PO DAILY 06/15/23 04/11/25 Insulin Detemir [Levemir Flexpen] 55 units SQ DAILY 06/15/23 04/11/25 Prevagen Extra Strength 1 tab PO DAILY 06/15/23 04/11/25 metFORMIN HCL 1,000 mg PO BID 06/15/23 04/11/25 Albuterol Sulfate [Albuterol 2 puff PO RT-Q4H PRN 05/30/24 04/11/25 Sulfate Hfa] Aspirin EC [Ecotrin Low Dose] 81 mg PO DAILY 05/30/24 04/11/25 DULoxetine HCL [Cymbalta] 30 mg PO DAILY 05/30/24 04/11/25 Dulaglutide [Trulicity] 3 mg SQ WE 05/30/24 04/11/25 Ferrous Sulfate [Iron (65 MG 325 mg PO DAILY 05/30/24 04/11/25 Elemental)] Pioglitazone [Actos] 15 mg PO DAILY 05/30/24 04/11/25 Previous Rx's Medication Instructions Recorded Pantoprazole Sodium [Protonix] 40 mg PO DAILY 14 Days #14 tab 07/18/22 HYDROcodone/APAP 5-325MG [[place] 1 tab PO Q6HR PRN 3 Days #12 tab 06/03/24 5-325] HYDROcodone/APAP 5-325MG [[place] 5] 1 each PO Q6HR PRN #12 tab 04/28/25 Allergies Allergy/AdvReac Type Severity Reaction Status Date / Time No Known Allergies Allergy Verified 04/28/25 11:45 Review of Systems ROS Statement: Those systems with pertinent positive or pertinent negative responses have been documented in the HPI. ROS Other: All systems not noted in ROS Statement are negative. Past Medical History Past Medical History: Asthma, Chest Pain / Angina, Diabetes Mellitus, Hypertension, Liver Disease Additional Past Medical History / Comment(s): HX OF HEPATITIS A @ 12 YRS OLD, ON AND OFF DIARRHEA. Bilateral shoulder, arm and hip., iron deficiency anemia. History of Any Multi-Drug Resistant Organisms: None Reported Past Surgical History: Section, Cholecystectomy, Hysterectomy, Orthopedic Surgery Additional Past Surgical History / Comment(s): RT CARPAL TUNNEL, CYSTS AND TRIGGER FINGER RT & LT HANDS, CS X4., EGD Past Anesthesia/Blood Transfusion Reactions: No Reported Reaction, Motion Sickness Additional Past Anesthesia/Blood Transfusion Reaction / Comment(s): Niece passed and almost , not sure exactly what happened. Past Psychological History: No Psychological Hx Reported Smoking Status: Never smoker Past Alcohol Use History: None Reported Past Drug Use History: None Reported - Past Family History Sister(s) Family Medical History: Cancer Mother History Unknown: Yes Family Medical History: Deep Vein Thrombosis (DVT), Myocardial Infarction (SC) Father History Unknown: Yes Additional Family Medical History / Comment(s): emphysema General Exam Limitations: no limitations General appearance: alert, in no apparent distress Head exam: Present: atraumatic, normocephalic, normal inspection Eye exam: Present: normal appearance, PERRL, EOMI. Absent: scleral icterus, conjunctival injection, periorbital swelling ENT exam: Present: normal exam, mucous membranes moist Respiratory exam: Present: normal lung sounds bilaterally. Absent: respiratory distress, wheezes, rales, rhonchi, stridor Cardiovascular Exam: Present: regular rate, normal rhythm, normal heart sounds. Absent: systolic murmur, diastolic murmur, rubs, gallop, clicks GI/Abdominal exam: Present: soft, tenderness, normal bowel sounds. Absent: distended, guarding, rebound, rigid Extremities exam: Present: normal inspection, full ROM, normal capillary refill. Absent: tenderness, pedal edema, joint swelling, calf tenderness Back exam: Present: normal inspection Neurological exam: Present: alert, oriented X3 Psychiatric exam: Present: normal affect, normal mood Skin exam: Present: warm, dry, intact, normal color. Absent: rash Course Vital Signs 04/28/25 04/28/25 04/28/25 11:42 15:57 19:05 Temperature 98.1 F Pulse Rate 82 76 92 Respiratory 18 18 18 Rate Blood Pressure 163/85 163/80 148/76 O2 Sat by Pulse 95 96 96 Oximetry Medical Decision Making - Medical Decision Making Was pt. sent in by a medical professional or institution (, PA, [employer], urgent care, hospital, or detention...) When possible be specific @ -No Did you speak to anyone other than the patient for history (EMS, parent, family, police, friend...)? What history was obtained from this source @ -No Did you review nursing and triage notes (agree or disagree)? Why? @ -I reviewed and agree with nursing and triage notes Were old charts reviewed (outside hosp., previous admission, EMS record, old EKG, old radiological studies, urgent care reports/EKG's, detention records)? Report findings @ -No old charts were reviewed Differential Diagnosis (chest pain, altered mental status, abdominal pain women, abdominal pain men, vaginal bleeding, weakness, fever, dyspnea, syncope, headache, dizziness, GI bleed, back pain, seizure, CVA, palpatations, mental health, musculoskeletal)? @ -Differential Abdominal Pain Women: Appendicitis, Cholecystitis, diverticulosis, ischemic bowel, pancreatitis, he patitis, UTI, gastroenteritis, AAA, incarcerated hernia, bowel obstruction, constipation, inflammatory bowel, hepatitis, peptic ulcer disease, splenic infarction, perforated viscus, vulvitis, ovarian torsion, PID, kidney stone, placenta abruption, this is not meant to be an all-inclusive list EKG interpreted by me (3pts min.). @ -none X-rays interpreted by me (1pt min.). @ -None done CT interpreted by me (1pt min.). @ -CT of the abdomen pelvis revealing findings concerning for hepatic cirrhosis with evidence of portal venous hypertension including splenomegaly and recanalization of the umbilical vein which is consistent with prior CT, stable pancreatic duct cysts, cholelithiasis suggested U/S interpreted by me (1pt. min.). @ -None done What testing was considered but not performed or refused? (CT, X-rays, U/S, labs)? Why? @ -None What meds were considered but not given or refused? Why? @ -None Did you discuss the management of the patient with other professionals (professionals i.e. DrLuz Elena, PA, [employer], lab, RT, psych nurse, hospice social worker, azure architect, teacher, submarine advisory team watch officer, showcase maker)? Give summary @ -No Was smoking cessation discussed for >3mins.? @ -No Was critical care preformed (if so, how long)? @ -No Were there social determinants of health that impacted care today? How? (Homelessness, low income, unemployed, alcoholism, drug addiction, transporta tion, low edu. Level, literacy, decrease access to med. care, custodial, rehab)? @ -No Was there de-escalation of care discussed even if they declined (Discuss DNR or withdrawal of care, Hospice)? DNR status @ -No What co-morbidities impacted this encounter? (DM, HTN, Smoking, COPD, CAD, Cancer, CVA, ARF, Chemo, Hep., AIDS, mental health diagnosis, sleep apnea, morbid obesity)? @ -None Was patient admitted / discharged? Hospital course, mention meds given and route, prescriptions, significant lab abnormalities, going to OR and other pertinent info. @ -Discharge. Patient presented the emergency department for evaluation of abdominal pain.Laboratory studies revealing no significant leukocytosis, hemoglobin 10 which is stable for the patient CMP is nonactionable UA shows no evidence of infectious process CT of the abdomen pelvis revealing findings concerning for hepatic cirrhosis with evidence of portal venous hypertension including spinal megaly and recannulization umbilical vein which was present on prior CT, stable pancreatic duct cyst, cholelithiasis suggested. Patient was advised of findings. She was advised to follow-up with her primary care provider. She is understanding agreeable with discharge plan. Patient stable at time of discharge. Case discussed with Dr. Manzanares Undiagnosed new problem with uncertain prognosis? @ -No Drug Therapy requiring intensive monitoring for toxicity (Heparin, Nitro, Insulin, Cardizem)? @ -No Were any procedures done? @ -No Diagnosis/symptom? @ -Abdominal pain Acute, or Chronic, or Acute on Chronic? @ -Acute Uncomplicated (without systemic symptoms) or Complicated (systemic symptoms)? @ -uncomplicated Side effects of treatment? @ -No Exacerbation, Progression, or Severe Exacerbation? @ -No Poses a threat to life or bodily function? How? (Chest pain, USA, SC, pneumonia, PE, COPD, DKA, ARF, appy, cholecystitis, CVA, Diverticulitis, Homicidal, Suicidal, threat to staff... and all critical care pts) @ -No - Lab Data Result diagrams: 04/28/25 15:15 04/28/25 15:15 Lab Results 04/28/25 04/28/25 04/28/25 Range/Units 12:30 15:15 15:15 WBC 4.37 L (4.50-10.00) 10*3/uL RBC 4.32 (4.10-5.20) 10*6/uL Hgb 10.0 L (12.0-15.0) g/dL Hct 33.8 L (37.2-46.3) % MCV 78.2 L (80.0-97.0) fL MCH 23.1 L (27.0-32.0) pg MCHC 29.6 L (32.0-37.0) g/dL Plt Count 84 L (140-440) 10*3/uL MPV [employer] Immature Gran % (Auto) 0.2 % Neutrophils % 77.5 % Lymphocytes % 16.0 % Monocytes % 5.3 % Eosinophils % 0.5 % Basophils % 0.5 % Immature Gran # 0.01 (0.00-0.04) 10*3/uL Neutrophils # 3.39 (1.80-7.70) 10*3/uL Lymphocytes # 0.70 L (0.90-5.00) 10*3/uL Monocytes # 0.23 (0.20-1.00) 10*3/uL Eosinophils # 0.02 L (0.04-0.35) 10*3/uL Basophils # 0.02 (0.00-0.10) 10*3/uL Manual Slide Review Performed Immature Plt Fraction 2.1 (1.1-6.1) % Anisocytosis (manual) Present Sodium 140 (137-145) mmol/L Potassium 3.7 (3.5-5.1) mmol/L Chloride 104 (98-107) mmol/L Carbon Dioxide 26 (22-30) mmol/L Anion Gap 10 mmol/L BUN 8 (7-17) mg/dL Creatinine 0.58 (0.52-1.04) mg/dL Est GFR (CKD-EPI)AfAm >90 (>60 ml/min/1.73 sqM) Est GFR (CKD-EPI)NonAf >90 (>60 ml/min/1.73 sqM) Glucose 81 (74-99) mg/dL Plasma Lactic Acid Roberto (0.7-2.0) mmol/L Calcium 9.0 (8.4-10.2) mg/dL Total Bilirubin 0.8 (0.2-1.3) mg/dL AST 32 (14-36) U/L ALT 18 (4-34) U/L Alkaline Phosphatase 81 (38-126) U/L Total Protein 7.1 (6.3-8.2) g/dL Albumin 4.0 (3.5-5.0) g/dL Amylase 33 (30-110) U/L Lipase 36 (23-300) U/L Urine Color Colorless Urine Appearance Clear (Clear) Urine pH 7.5 (5.0-8.0) Ur Specific [place] 1.016 (1.001-1.035) Urine Protein Negative (Negative) Urine Glucose (UA) 4+ H (Negative) Urine Ketones Negative (Negative) Urine Blood Negative (Negative) Urine Nitrite Negative (Negative) Urine Bilirubin Negative (Negative) Urine Urobilinogen <2.0 (<2.0) mg/dL Ur Leukocyte Esterase Large H (Negative) Urine RBC 2 (0-5) /hpf Urine WBC 2 (0-5) /hpf Ur Squamous Epith Cells 2 (0-4) /hpf Urine Mucus Rare H (None) /hpf 04/28/25 Range/Units 15:15 WBC (4.50-10.00) 10*3/uL RBC (4.10-5.20) 10*6/uL Hgb (12.0-15.0) g/dL Hct (37.2-46.3) % MCV (80.0-97.0) fL MCH (27.0-32.0) pg MCHC (32.0-37.0) g/dL Plt Count (140-440) 10*3/uL MPV Immature Gran % (Auto) % Neutrophils % % Lymphocytes % % Monocytes % % Eosinophils % % Basophils % % Immature Gran # (0.00-0.04) 10*3/uL Neutrophils # (1.80-7.70) 10*3/uL Lymphocytes # (0.90-5.00) 10*3/uL Monocytes # (0.20-1.00) 10*3/uL Eosinophils # (0.04-0.35) 10*3/uL Basophils # (0.00-0.10) 10*3/uL Manual Slide Review Immature Plt Fraction (1.1-6.1) % Anisocytosis (manual) Sodium (137-145) mmol/L Potassium (3.5-5.1) mmol/L Chloride (98-107) mmol/L Carbon Dioxide (22-30) mmol/L Anion Gap mmol/L BUN (7-17) mg/dL Creatinine (0.52-1.04) mg/dL Est GFR (CKD-EPI)AfAm (>60 ml/min/1.73 sqM) Est GFR (CKD-EPI)NonAf (>60 ml/min/1.73 sqM) Glucose (74-99) mg/dL Plasma Lactic Acid Roberto 1.4 (0.7-2.0) mmol/L Calcium (8.4-10.2) mg/dL Total Bilirubin (0.2-1.3) mg/dL AST (14-36) U/L ALT (4-34) U/L Alkaline Phosphatase (38-126) U/L Total Protein (6.3-8.2) g/dL Albumin (3.5-5.0) g/dL Amylase (30-110) U/L Lipase (23-300) U/L Urine Color Urine Appearance (Clear) Urine pH (5.0-8.0) Ur Specific [place] (1.001-1.035) Urine Protein (Negative) Urine Glucose (UA) (Negative) Urine Ketones (Negative) Urine Blood (Negative) Urine Nitrite (Negative) Urine Bilirubin (Negative) Urine Urobilinogen (<2.0) mg/dL Ur Leukocyte Esterase (Negative) Urine RBC (0-5) /hpf Urine WBC (0-5) /hpf Ur Squamous Epith Cells (0-4) /hpf Urine Mucus (None) /hpf Disposition Clinical Impression: Abdominal pain Disposition: HOME SELF-CARE Condition: Stable Instructions (If sedation given, give patient instructions): Abdominal Pain (ED) Additional Instructions: Please follow up with your doctor as we discussed. Return to the emergency department for new or worsening symptoms. Prescriptions: HYDROcodone/APAP 5-325MG [[place] 5] 1 each PO Q6HR PRN #12 tab PRN Reason: Pain Is patient prescribed a controlled substance at d/c from ED?: No Referrals: Juan Manuel Hartley MD [Primary Care Provider] - 1-2 days
[2025-04-28 13:09] LABS: Appearance,Urine Clear (Clear); Bilirubin,Urine Negative (Negative); Blood,Urine Negative (Negative); Color,Urine Colorless; Glucose,Urine (UA) 4+ (Negative); Ketones,Urine Negative (Negative); Leukocyte Esterase,Urine Large (Negative); Mucus,Urine Rare /hpf; Nitrite,Urine Negative (Negative); PH, Urine 7.5 (5.0-8.0); Protein,Urine Negative (Negative); RBC,Urine 2 /hpf (0-5); Specific Gravity,Urine 1.016 (1.001-1.035); Squamous Epithelial Cell,Urine 2 /hpf (0-4); Urobilinogen,Urine <2.0 mg/dL (<2.0); WBC,Urine 2 /hpf (0-5)
[2025-04-28] MEDS: KETOROLAC 15 MG/ML 1 ML VIAL IVP STA (13:16)
[2025-04-28 15:29] LABS: Basophils # (A) 0.02 10*3/uL (0.00-0.10); Basophils % (A) 0.5 %; Eosinophils # (A) 0.02 10*3/uL (0.04-0.35); Eosinophils % (A) 0.5 %; HCT 33.8 % (37.2-46.3); Immature Platelet Fraction 2.1 % (1.1-6.1); MCH 23.1 pg (27.0-32.0); MCHC 29.6 g/dL (32.0-37.0); MCV 78.2 fL (80.0-97.0); Monocytes # (A) 0.23 10*3/uL (0.20-1.00); Monocytes % (A) 5.3 %; Neutrophils # (A) 3.39 10*3/uL (1.80-7.70); Neutrophils % (A) 77.5 %; RBC 4.32 10*6/uL (4.10-5.20); RDW 24.2 % (11.5-14.5); WBC 4.37 10*3/uL (4.50-10.00)
[2025-04-28 15:40] LABS: ALT 18 U/L (4-34); AST 32 U/L (14-36); African American GFR (CKD) >90 (>60 ml/min/1.73 sqM); Alkaline Phosphatase 81 U/L (38-126); Amylase 33 U/L (30-110); Anion Gap 10 mmol/L; Blood Urea Nitrogen 8 mg/dL (7-17); Carbon Dioxide 26 mmol/L (22-30); Chloride 104 mmol/L (98-107); Glucose 81 mg/dL (74-99); Lipase 36 U/L (23-300); Non-African American GFR(CKD) >90 (>60 ml/min/1.73 sqM); Potassium 3.7 mmol/L (3.5-5.1); Sodium 140 mmol/L (137-145); Total Bilirubin 0.8 mg/dL (0.2-1.3); Total Protein 7.1 g/dL (6.3-8.2)
[2025-04-28] MEDS: MORPHINE SULFATE 4 MG/ML SYRINGE IVP STA (16:13)
[2025-04-28 16:21] LABS: Anisocytosis (M) Present
[2025-04-28 16:22] LABS: Platelet Count 84 10*3/uL (140-440)
--- NOTE | 2025-04-28 18:37 | CT ---
EXAMINATION TYPE: CT abdomen pelvis w con CT DLP: 860.4 mGycm, Automated exposure control for dose reduction was used. DATE OF EXAM: 04/28/2025 6:22 PM COMPARISON: CT abdomen pelvis 11/26/2024, 03/27/2014 CLINICAL INDICATION:Female, 74 years old with history of right sided pain; right side pain TECHNIQUE: Standard CT of the abdomen and pelvis following the administration of 100 cc of Isovue 3 00 IV contrast material. Coronal and sagittal reformats were performed. FINDINGS: LOWER CHEST: Minimal posterior dependent subsegmental atelectasis is noted. Stable right middle lobe 2.7 mm pulmonary nodule dating back to 2013 and considered benign. ABDOMEN LIVER: There is some subtle surface nodularity of the liver without focal lesion identified. Portal v enous system is patent with recanalization of the umbilical vein again. GALLBLADDER AND BILE DUCTS: There is a subtle hyperdense material within the gallbladder. No biliary ductal dilatation. PANCREAS: A couple of stable pancreatic body adjacent cysts with largest measuring up to 1.3 cm. Gene ralized moderate atrophy of the pancreas. No pancreatic ductal dilatation and parenchymal calcificati ons. No surrounding inflammatory changes or fluid collections. SPLEEN: Enlarged again measuring 16.7 cm in AP dimension. ADRENAL GLANDS: Unremarkable. KIDNEYS AND URETERS: No evidence of hydronephrosis or renal calculus. The kidneys enhance symmetrical ly. Contrast is demonstrated within both collecting systems and proximal ureters on the delayed phase . PELVIS BLADDER: Unremarkable REPRODUCTIVE: The uterus is surgically absent. Ovaries appear symmetric. ABDOMEN & PELVIS STOMACH AND BOWEL: Small hiatal hernia, duodenum is unremarkable. No focal bowel wall thickening or s urrounding inflammatory changes. No evidence of bowel obstruction. The appendix is not identified. PERITONEUM: No evidence of pneumoperitoneum or free fluid. VASCULATURE: Mild atherosclerotic calcifications are present throughout the abdominal aorta and its b ranches. No evidence of aortic aneurysm. Multiple pelvic phleboliths. MUSCULOSKELETAL: No acute osseous abnormalities. Multilevel anterior osteophytosis of the lower thora cic spine. LYMPH NODES: No gross evidence for lymphadenopathy. SOFT TISSUE/ABDOMINAL WALL: Couple of nodular densities and stranding identified within the anterior lower abdominal wall subcutaneous tissues likely from medication injection. IMPRESSION: 1. Findings concerning for hepatic cirrhosis with evidence of portal venous hypertension including s plenomegaly and recanalization of the umbilical vein. No focal hepatic lesion identified. 2. Cholelithiasis suggested. 3. Couple of stable pancreatic body cysts. Etiologies include intraductal papillary mucinous neoplasm versus pseudocyst versus serous cystadenomas versus other. Recommend further evaluation with outpati ent MRI abdomen with IV contrast (pancreatic mass protocol). [facility], , 04/28/2025 6:35 PM
[2025-04-28 19:06] VITALS: BP 148/76; PULSE 92
== END 2025-04-28 19:13 | disposition home or self-care (01) ==
LOC: EC 11:41
DX: R10.9 Unspecified abdominal pain (principal)
CPT/HCPCS: 36415; 80053; 82150; 83605; 83690; 85025; 81001; 74177; 99285; 96374; J2270; J1885; Q9967

== ENCOUNTER → 2025-05-09 | Outpatient (CLI) | payer MEDICARE ==
[2025-05-09 15:40] LABS: ALT 29 U/L (8-44); AST 42 U/L (13-35); Albumin 4.0 g/dL (3.8-4.9); Albumin/Globulin Ratio 1.43 Ratio (1.60-3.17); Alkaline Phosphatase 85 U/L (41-126); Anion Gap 13.70 mmol/L (4.00-12.00); BUN/Creat Ratio 11.57 Ratio (12.00-20.00); Blood Urea Nitrogen 8.1 mg/dL (9.0-27.0); Calcium 9.0 mg/dL (8.7-10.3); Carbon Dioxide 24.3 mmol/L (21.6-31.8); Chloride 104 mmol/L (96-109); Cholesterol 121.00 mg/dL (0.00-200.00); Ferritin 16.3 ng/mL (10.0-291.0); Globulin 2.8 g/dL (1.6-3.3); Glucose 126 mg/dL (70-110); HDL Cholesterol 33.60 mg/dL (40.00-60.00); Iron 85 UG/DL (50-170); LDL Cholesterol,Calculated 65.0 mg/dL (0.0-131.0); Potassium 4.0 mmol/L (3.5-5.5); Sodium 142 mmol/L (135-145); Total Iron Binding Capacity 417 UG/DL (228-460); Total Protein 6.8 g/dL (6.2-8.2); Triglycerides 112.00 mg/dL (0.00-149.00); VLDL Calculation 22.40 mg/dL (5.00-40.00)
[2025-05-09 16:02] LABS: Anisocytosis (M) 2+ (None Seen); Basophils # (A) 0.03 X 10*3/uL (0.00-0.10); Basophils % (A) 0.8 %; Eosinophils # (A) 0.12 X 10*3/uL (0.04-0.35); Eosinophils % (A) 3.2 %; HCT 36.9 % (37.2-46.3); HGB 10.5 g/dL (12.0-15.0); Immature Grans, Automated 0.30 %; Lymphocytes # (A) 1.29 X 10*3/uL (0.90-5.00); Lymphocytes % (A) 34.6 %; MCH 22.8 pg (27.0-32.0); MCHC 28.5 g/dL (32.0-37.0); MCV 80.0 FL (80.0-97.0); Monocytes # (A) 0.25 X 10*3/uL (0.20-1.00); Monocytes % (A) 6.7 %; NRBC Per 100 WBC 0 X 10*3/uL (0.00-0.01); Neutrophils # (A) 2.03 X 10*3/uL (1.80-7.70); Neutrophils % (A) 54.4 %; Platelet Count 130 X 10*3/uL (140-440); RBC 4.61 X 10*6/uL (4.10-5.20); RDW 23.6 % (11.5-14.5); WBC 3.73 X 10*3/uL (4.50-10.00)
== END | disposition home or self-care (01) ==
LOC: LABWHC1 08:28
PROVIDERS: ATTEND Family Medicine
DX: E11.65 Type 2 diabetes mellitus with hyperglycemia (principal); E11.21 Type 2 diabetes mellitus with diabetic nephropathy; E78.5 Hyperlipidemia, unspecified; D50.9 Iron deficiency anemia, unspecified
CPT/HCPCS: 36415; 80053; 80061; 82043; 82570; 82728; 83036; 83540; 83550; 85025